=== PATIENT | male | born 1950 | race American Indian/Alaskan Native ===

== ENCOUNTER 2019-10-13 09:47 | Emergency (ER) | payer MEDICARE ==
[2019-10-13 11:21] VITALS: BP 114/66
--- NOTE | 2019-10-13 11:28 | Emergency Department Report ---
Chief Complaint: Upper Respiratory Infection Stated Complaint: CARONA VIRUS CLEARANCE Time Seen by Provider: 10/13/19 11:19 - HPI History of Present Illness: 69 y/o male bought in by his daughter for covid-19 screening. Carter reports that the adult daycare sent her to the ER for screening since patient has a cough. Daughter reports her dad has a chronic cough from his medication. No recent travels or contact with anyone who has tested positive for covid-19. - Exam Vital Signs: Vital Signs 10/13/19 11:19 Temperature 99.2 F Pulse Rate 73 Respiratory 24 Rate Blood Pressure 114/66 O2 Sat by Pulse 94 Oximetry Physical Exam: alert NAD resp breathing without difficulties. MSE screening note: Focused history and physical exam performed. Due to findings the following was ordered: 69 y/o male bought in by his daughter for covid-19 screening. Carter reports that the adult daycare sent her to the ER for screening since patient has a cough. Daughter reports her dad has a chronic cough from his medication. ED Disposition for MSE Disposition: MED SCREENING EXAM-LEFT Is pt being admited?: No Does the pt Need Aspirin: No Condition: Stable Additional Instructions: recommend to return to day center. Forms: Accompanied Note
== END 2019-10-13 11:35 | disposition left against medical advice (07) ==
LOC: ED 09:47
DX: R05 Cough (principal)
CPT/HCPCS: 99281

== ENCOUNTER 2022-02-25 17:55 | Inpatient (IN) | payer OTHER, MEDICARE ==
--- NOTE | 2022-02-25 18:24 | Consultation ---
Medications and Allergies Allergies Allergy/AdvReac Type Severity Reaction Status Date / Time No Known Allergies Allergy Verified 02/25/22 17:59 Home Medications Medication Instructions Recorded Confirmed Last Taken Type Metoprolol [Lopressor TAB] 06/02/14 Unknown History Simvastatin 06/02/14 Unknown History amLODIPine [Norvasc] 5 mg PO DAILY 06/02/14 06/02/14 Unknown History lisinopriL [Zestril] 10 mg PO QDAY 06/02/14 Unknown History Clopidogrel [Plavix] 75 mg PO QDAY #30 tablet 06/03/14 Unknown Rx Assessment and Plan [facility] Consult Note # Demographics Consult Type: Acute Stroke Level 2 (4.5-24 hrs) Patient Location: Emergency Room First Name: Roel Last Name: Km Date of : 1950 Age: 71 Gender: Male Facility: [facility] Time of Initial Page ( Time): 02/25/2022, 17:47 Time of Return Call ( Time): 02/25/2022, 17:47 # HPI History: 71M with 14:00 is reported last well time. Then with speech trouble. Confused also. # Scores Time of exam and NIHSS ( Time): 02/25/2022, 18:05 Level of Consciousness 1a: [0] = Alert; keenly responsive LOC Questions 1b: [2] = Answers neither correctly LOC Commands 1c: [0] = Performs both tasks correctly Best Gaze 2: [0] = Normal Visual 3: [0] = No visual loss Facial Palsy 4: [0] = Normal symmetrical movements Motor Arm Left 5a: [0] = No drift Motor Arm Right 5b: [0] = No drift Motor Leg Left 6a: [0] = No drift Motor Leg Right 6b: [0] = No drift Limb Ataxia 7: [0] = Absent Sensory 8: [0] = Normal Best Language 9: [2] = Severe aphasia Dysarthria 10: [2] = Severe dysarthria Extinction and Inattention 11: [0] = No abnormality NIHSS Total: 6 VAN Screening: Negative # PMH-FH-SH Past Medical History: hypertension # Data Time Head CT personally read by me ( Time): 02/25/2022, 18:[address]: no bleed preliminarily reviewed by me, please refer to radiology read for official reading # Assessment Impression: Ischemic Stroke (Acute) disabling deficit. No contraindication can be identified to IV thrombolytic treatment, family not yet able to be contacted. # Plan Thrombolytic/Intervention: IV thrombolytic and possible IA candidate Thrombolytic Dosing: IV alteplase 0.9 mg/kg, max dose 90 mg; 10% of dose given over 1 minute IVP, remaining 90% given as infusion over 1 hour Time IV Thrombolytic Recommended ( Time): 02/25/2022, 18:09 Imaging: (urgency: STAT): CT Angiogram Head and CT Angiogram Neck Imaging: (urgency: routine): MRI Brain without contrast Diagnostic Test: echo without bubble study Thrombolytic Administration Recommendations: Unable to obtain informed consent due to medical condition. No family available. In my opinion, benefits of IV thrombolytic therapy outweigh risks. I have collected independent history specific to time last normal or last known well. We have collaborated with the ED provider and at this time, we have the most current timeline with the information that is available. BP goal< 180/105 for 24hrs post Thrombolytic administration Use Labetolol 10-20mg IV prn or Nicardipine gtt to maintain BP parameters No antiplatelets or anticoagulants for next 24 hrs unless indicated for emergent IA procedure or other life threatening situation ICU admission Call back if there is any decline in neurological condition Other: LDL < 70 permissive hypertension telemetry monitoring I have discussed my recommendations with the referring provider Additional Recommendations: If large vessel occlusion found on CTA head/neck please urgently consult neuro-endovascular specialist for transfer and interventional treatment, otherwise can admit locally for further evaluation and management. Disposition: admit # Logistics Telemedicine: Interactive 2 way audio and visual telecommunication technology was utilized during this visit
--- NOTE | 2022-02-25 18:31 | Cat Scan Report ---
CT BRAIN: 02/25/2022 INDICATION / CLINICAL INFORMATION: aphasia; eval for cva. Technologist note:Radiologist aware that pt is moving. best images possible after scanning twice COMPARISON: None available. FINDINGS: BRAIN/INTRACRANIAL STRUCTURES: Unenhanced CT images of the brain were obtained. Patient motion artifa ct is present. There is no evidence of acute abnormality. Ventricles and sulci are prominent in size, consistent with pronounced age-related atrophic change. C hronic white matter hypoattenuation is present diffusely throughout the cerebral hemispheric white ma tter. There is no gross evidence of large vessel territory ischemic injury, hemorrhage, or mass. There are no abnormal extra-axial fluid collections. Atherosclerotic vascular calcifications are present in the distal internal carotid arteries and verte bral arteries. EXTRACRANIAL STRUCTURES: Unremarkable. IMPRESSION: No acute abnormality. Chronic and age-related changes. All CT scans at this location are performed using dose reduction to ALARA by means of automated expos ure control. Signer Name: Noel Hammer MD Signed: 02/25/2022 6:27 PM Workstation Name: [id number]
--- NOTE | 2022-02-25 18:47 | XRay Report ---
CHEST 1 VIEW 02/25/2022 5:38 PM INDICATION / CLINICAL INFORMATION: weakness, aphasia. COMPARISON: 06/02/2014 FINDINGS: SUPPORT DEVICES: None. HEART / MEDIASTINUM: There is prominence of the cardiac silhouette LUNGS / PLEURA: There is focal parenchymal opacity in the right upper lung zone and there are mild bi basilar airspace opacities. No pneumothorax. There is blunting of the left costophrenic angle suggest ing small left effusion. ADDITIONAL FINDINGS: No significant additional findings. IMPRESSION: 1. There are bilateral airspace opacities which could represent atelectasis or pneumonia. 2. There is a possible small left pleural effusion. Note: Follow-up radiograph should be obtained in the next several weeks to ensure clearing of the marquita gs. Signer Name: David Cosme MD Signed: 02/25/2022 6:43 PM Workstation Name: [email or web address]-tic
[2022-02-25 19:12] LABS: INR 0.94 (0.87-1.13)
[2022-02-25 19:13] LABS: Partial Thromboplastin Time 29.5 Sec. (24.2-36.6)
[2022-02-25 19:15] LABS: Alanine Aminotransferase 20 units/L (7-56); Albumin 3.8 g/dL (3.9-5); BUN/Creatinine Ratio 13; Blood Urea Nitrogen 18 mg/dL (9-20); Hemolysis Index 3
--- NOTE | 2022-02-25 19:38 | Emergency Department Report ---
ED Neuro Deficit HPI - General Chief Complaint: Neuro Symptoms/Deficit Stated Complaint: STROKE Time Seen by Provider: 02/25/22 17:57 Source: EMS Mode of arrival: Stretcher Limitations: Other - History of Present Illness Initial Comments: 71yo M w/hx of HTN, HLD, bibems as stroke notification. Pt is currently aphasic. EMS states that family member reports that the patient was last known well at 2 PM. Of note the patient arrived here at 5:53 PM. Patient is moving all extremities but cannot verbalize any complaints or provide any verbal responses to this provider. Unable to assess pain scale. Last Observed Normal: 14:00 Location: speech History of same: No Place: home Severity: Unable to Determine Quality: other (Patient nonverbal) Improves With: other (Patient nonverbal) Worsens With: other (Known patient nonverbal) On Anticoagulants: No Associated Symptoms: other (Unknown patient unable to verbalize) Treatments Prior to Arrival: none - Related Data Home Medications: Home Medications Medication Instructions Recorded Confirmed Last Taken Metoprolol [Lopressor TAB] 06/02/14 Unknown Simvastatin 06/02/14 Unknown amLODIPine [Norvasc] 5 mg PO DAILY 06/02/14 06/02/14 Unknown lisinopriL [Zestril] 10 mg PO QDAY 06/02/14 Unknown Previous Rx's Medication Instructions Recorded Last Taken Type Clopidogrel [Plavix] 75 mg PO QDAY #30 tablet 06/03/14 Unknown Rx Allergies/Adverse Reactions: Allergies Allergy/AdvReac Type Severity Reaction Status Date / Time No Known Allergies Allergy Verified 02/25/22 17:59 ED Review of Systems ROS: Stated complaint: STROKE Other details as noted in HPI Comment: Unobtainable due to pts medical conditions Constitutional: no symptoms reported ED Past Medical Hx - Past Medical History Hx Hypertension: Yes Hx Heart Attack/AMI: Yes Hx Dementia: Yes Additional medical history: high chol - Family History Family history: no significant - Social History Smoking Status: Former Smoker Substance Use Type: None - Medications Home Medications: Home Medications Medication Instructions Recorded Confirmed Last Taken Type Metoprolol [Lopressor TAB] 06/02/14 Unknown History Simvastatin 06/02/14 Unknown History amLODIPine [Norvasc] 5 mg PO DAILY 06/02/14 06/02/14 Unknown History lisinopriL [Zestril] 10 mg PO QDAY 06/02/14 Unknown History Clopidogrel [Plavix] 75 mg PO QDAY #30 tablet 06/03/14 Unknown Rx ED Neuro Physical Exam - General Limitations: Other (Patient aphasic) General appearance: alert, in no apparent distress Suspected Stroke: Yes - Head Head exam: Present: atraumatic, normocephalic, normal inspection - Eye Eye exam: Present: normal appearance, PERRL, EOMI Pupils: Present: normal accommodation - ENT ENT exam: Present: normal exam, mucous membranes moist, normal external ear exam - Neck Neck exam: Present: normal inspection - Respiratory Respiratory exam: Present: normal lung sounds bilaterally - Cardiovascular Cardiovascular Exam: Present: regular rate, normal rhythm, normal heart sounds - GI/Abdominal GI/Abdominal exam: Present: soft, normal bowel sounds - Extremities Exam Extremities exam: Present: normal inspection, full ROM, normal capillary refill. Absent: pedal edema, joint swelling, calf tenderness - Back Exam Back exam: Present: normal inspection, full ROM. Absent: tenderness, CVA tenderness (R), CVA tenderness (L), muscle spasm, rash noted - Neurological Exam Neurological exam: Present: alert, CN II-XII intact, reflexes normal, other (Patient aphasic) - NIHSS Assessment Interval: Baseline 1a. Level of Consciousness: alert/keenly responsive 1b. LOC Questions: aphasic 1c. LOC Commands: performs tasks correctly 2. Best Gaze: normal 3. Visual: no visual loss 4. Facial Palsy: minor paralysis 5b. Motor Arm Right: no drift 5a. Motor Arm Left: no drift 6a. Motor Leg Left: no drift 6b. Motor Leg Right: no drift 7. Limb Ataxia: absent 8. Sensory: no response/quadraplegic 9. Best Language: mute/global aphasia 10. Dysarthria: mute/anarrthric 11. Extinction/Inattention: no abnormality Total Score: 10 Stroke Severity: Moderate Stroke ED Course Vital Signs 02/25/22 02/25/22 02/25/22 18:36 21:02 21:41 Temperature 98.0 F Pulse Rate 106 H 88 68 Respiratory 15 15 18 Rate Blood Pressure 116/56 Blood Pressure 116/56 133/90 132/69 [Left] O2 Sat by Pulse 100 95 97 Oximetry - Reevaluation(s) Reevaluation #1: 02/25/22 06:08pm: Call received from stroke neurologist, Dr. Becker. Per his verbal report patient is a tPA candidate. 6:10PM-06:21pm PM: I telephoned the patient's next of kin on file, his daughter named..... I spoke with her specifically to verify the patient's last known well time as well as to discuss the risk benefits of the patient receiving tPA. Per her verbal report she last saw the patient at 2 PM but she states she was not the one watching over him during the morning. The patient was being cared for by her uncle named Nathan. I spoke to Nathan independently. He states "I last saw him about 130pm or maybe 2:00." He states the patient last shook his head and nodded in response to the question he asked. Patient's daughter states to this provider that she is uncertain if she would like the patient to receive tPA "because he is minimally verbal and does not really talk in general and if something happens to him and he gets a brain bleed no one will know." Patient's daughter states she is requesting to speak to the stroke neurologist, Dr. Becker, concerning further questions she has concerning risk benefits of the patient receiving tPA. 06:22pm: Call made to stroke neurologist, Dr. Becker. I informed him of my discussion with the patient's daughter as well as the patient's daughters uncle, Nathan. Per his verbal report, the patient based on the timeframe provided by uncle Nathan, is out of the window to receive tPA and therefore it is not recommended that this be administered at this time. Immediately subsequently telephoned the patient's daughter and informed her of this. Reevaluation #2: 02/25/22 19:48 Reassessed. He is comfortable and well-appearing. He remains aphasic. Reevaluation #3: 02/25/22 23:03 Pt reassessed; He remains aphasic - Lab Data Result diagrams: 02/25/22 18:33 Lab Results 02/25/22 02/25/22 02/25/22 Range/Units 18:33 18:33 18:33 PT 13.6 (12.2-14.9) Sec. INR 0.94 (0.87-1.13) APTT 29.5 (24.2-36.6) Sec. Sodium 139 (137-145) mmol/L Potassium 3.3 L (3.6-5.0) mmol/L Chloride 103.0 (98-107) mmol/L Carbon Dioxide 23 (22-30) mmol/L Anion Gap 16 mmol/L BUN 18 (9-20) mg/dL Creatinine 1.4 H (0.8-1.3) mg/dL Estimated GFR > 60 ml/min BUN/Creatinine Ratio 13 % Glucose 125 H (75-100) mg/dL POC Glucose (70-105) mg/dL Calcium 9.0 (8.4-10.2) mg/dL Total Bilirubin 0.60 (0.1-1.2) mg/dL AST 33 (5-40) units/L ALT 20 (7-56) units/L Alkaline Phosphatase 71 (35-129) units/L Troponin T < 0.010 (0.00-0.029) ng/mL Total Protein 7.7 (6.3-8.2) g/dL Albumin 3.8 L (3.9-5) g/dL Albumin/Globulin Ratio 1.0 % Plasma/Serum Alcohol < 0.01 (0-0.07) % // Range/Units 18:47 PT (12.2-14.9) Sec. INR (0.87-1.13) APTT (24.2-36.6) Sec. Sodium (137-145) mmol/L Potassium (3.6-5.0) mmol/L Chloride (98-107) mmol/L Carbon Dioxide (22-30) mmol/L Anion Gap mmol/L BUN (9-20) mg/dL Creatinine (0.8-1.3) mg/dL Estimated GFR ml/min BUN/Creatinine Ratio % Glucose (75-100) mg/dL POC Glucose 130 H (70-105) mg/dL Calcium (8.4-10.2) mg/dL Total Bilirubin (0.1-1.2) mg/dL AST (5-40) units/L ALT (7-56) units/L Alkaline Phosphatase (35-129) units/L Troponin T (0.00-0.029) ng/mL Total Protein (6.3-8.2) g/dL Albumin (3.9-5) g/dL Albumin/Globulin Ratio % Plasma/Serum Alcohol (0-0.07) % - EKG Data -: EKG Interpreted by In EKG shows normal: sinus rhythm Rate: normal When compared to previous EKG there are: no significant change Interpretation: no acute changes - Radiology Data Radiology results: report reviewed - Medical Decision Making 71yo M w/multiple medical comorbidites brought in by EMS as stroke notification. VSS. Pt deemed not a TPA candidate upon further questioning via the pt's family members. See Stroke Neurologist's documentation concerning this. Labs and imaging results reviewed. Case reviewed with Dr. Murdock, admitting hospitalist. Pt's care has been transferred to him for further management. - Core Measures AMI Core Measures Followed: Yes - Thrombolytic Inclusion/Exclusion Thrombolytic Exclusion Criteria: Symptom Onset > 3 Hours (onset of symptoms ~1:30pm per uncle nathan's report ) Critical care attestation.: If time is entered above; I have spent that time in minutes in the direct care of this critically ill patient, excluding procedure time. ED Disposition Clinical Impression: Aphasia Disposition: 09 ADMITTED INPATIENT Is pt being admited?: Yes Does the pt Need Aspirin: Yes Condition: Stable Referrals: PRIMARY CARE, [Primary Care Provider] - 3-5 Days
[2022-02-25] MEDS ORDERED: SODIUM CHLORIDE 0.9% 1000 ML 1,000 ML IV ONE (20:08)
--- NOTE | 2022-02-25 21:55 | Cat Scan Report ---
CTA neck without and with intravenous contrast material CLINICAL HISTORY: aphasia ; last normal at 2pm; eval for cva TECHNIQUE: Following acquisition of a timing bolus 0.625 mm thick contiguous axial scans were obtained from aort ic arch to the skull base during rapid bolus intravenous contrast infusion. In addition to evaluation of axial source images multiplanar reconstructions were produced and reviewed for this report. 3 halel ne MIP reconstructions were produced and reviewed. Contrast dose report: Omnipaque 350: 100 ml, administered intravenously All CT examinations performed at this facility utilize modulated dose reduction, iterative reconstruc tion or weight-based dosing, as appropriate, to obtain a radiation dose which is as low as can reason ably be achieved. LIMITATIONS: Patient motion artifact is a significantly limiting factor on this examination. This obs cures long segments of the common carotid arteries and necks evaluation of the carotid bifurcations a nd possible. Study is also limited by dense intravenous contrast in a dilated right internal jugular and subclavian vein obscuring arterial detail along the course of the right subclavian artery and pro ximal right common carotid artery. FINDINGS: Thoracic aorta: No abnormalities are seen along the visualized course of the thoracic aorta. The orig ins of the brachiocephalic and left carotid artery have an unremarkable appearance. Calcified atheros clerotic plaque is seen at the origin of the left subclavian artery. Right common carotid artery orig in is poorly evaluated secondary to patient motion artifact and dense contrast in the adjacent large venous structures. Right carotid artery: Evaluation of the carotid bifurcations is impossible on this study due to patie nt motion artifact which obscures detail at the bifurcations. Mid and distal R ICA unremarkable appea cristopher. Left carotid artery: Evaluation of the carotid bifurcations is not possible on this study secondary t o patient motion artifact. Mid and distal cervical segments of the LICA have an unremarkable appearan ce. Posterior circulation: No abnormalities are seen along the course of the V1 segments of the vertebral arteries. Patient motion artifact degrades image quality and limits evaluation of much of the V2 seg ments of the vertebral arteries. The degree of stenosis, if any, is determined utilizing NASCET like criteria. In this case the carot id bifurcations cannot be evaluated due to patient motion artifact. Evaluation of the nonvascular soft tissue structures is limited secondary to patient motion artifact. There are findings of peripheral parenchymal infiltrates versus fibrotic changes in a subpleural dis tribution in the right upper and lower lobes. Evaluation of the cervical spine is limited secondary to patient motion artifact. However, there does appear to be grade 2 spondylolisthesis at the C2-3 level with resultant central canal stenosis. This may be in part due to patient motion artifact. Correlation with computed tomographic study of the ce rvical spine is suggested when the patient is able to cooperate for the examination. IMPRESSION: 1. This study significantly limited by patient motion artifact which renders this study nondiagnostic with regard to the presence of stenosis at the carotid bifurcations as well as multiple additional l imitations as enumerated above. 2. Grade 2 spondylolisthesis of C2-3 is likely in part due to artifact related to patient motion. Cor relation with cervical spine radiographs be considered. Alternatively, repeat CTA neck or CT cervical spine could be considered when the patient can cooperate for the examination. Signer Name: Brody Joy MD Signed: 02/25/2022 9:51 PM Workstation Name: [id number]
--- NOTE | 2022-02-25 21:57 | Cat Scan Report ---
CTA head with intravenous contrast CLINICAL HISTORY: aphasia ; last normal at 2pm; eval for cva TECHNIQUE: 0.625 mm thick contiguous axial scans were obtained from the skull base to the skull vertex during r apid bolus administration of intravenous contrast material. Multiplanar reconstructions were produced in the coronal and sagittal planes. In addition 3 plane MIP instructions were produced and reviewed for this report. The axial source images and reconstructed images were reviewed for this report. CONTRAST DOSE REPORT: Omnipaque 350: 100 ml administered intravenously. All CT scans at this location are performed using CT dose reduction for ALARA by means of automated e xposure control. FINDINGS: Patient motion artifact renders this examination nondiagnostic. IMPRESSION: 1. Nondiagnostic CTA head secondary to patient motion artifact. Consider repeat study when the patien t is able to cooperate for the examination. Signer Name: Brody Joy MD Signed: 02/25/2022 9:52 PM Workstation Name: [id number]
[2022-02-25] MEDS ORDERED: ASPIRIN 300 MG RECT SUPP PR ONE (22:47)
[2022-02-25 23:03] LABS: Hematocrit 43.1 % (35.5-45.6); Hemoglobin 13.5 gm/dl (11.8-15.2); Mean Corpuscular HGB Conc 31 % (32-34); Mean Corpuscular Volume 76 fl (84-94); Red Blood Count 5.63 M/mm3 (3.65-5.03); Red Cell Distribution Width 18.2 % (13.2-15.2)
[2022-02-25 23:04] LABS: Platelet Count 153 K/mm3 (140-440)
[2022-02-25] MEDS ORDERED: ONDANSETRON 4 MG/2 ML INJ IV PRN (23:06)
[2022-02-25] MEDS ORDERED: SODIUM CHLORIDE 0.9% 1000 ML 1,000 ML IV SCH (23:15)
--- NOTE | 2022-02-25 23:18 | History and Physical Report ---
History of Present Illness Date of examination: 02/25/22 Date of admission: 02/25/22 Chief complaint: Aphasia History of present illness: 71 years old male with past medical history of hypertension and hyperlipidemia was brought to the hospital because of aphasic. EMS states that family member reports that the patient was last known well at 2 PM. Of note the patient arrived here at 5:53 PM. Patient is moving all extremities but cannot verbalize any complaints or provide any verbal responses to this provider. Unable to assess pain scale. Initial CT scan of the head shows no acute intracranial abnormality. Subsequently patient was seen and evaluated by telemetry neurology and recommended tPA but later based on the timeframe provided by uncle Nathan, is out of the window to receive tPA and therefore it is not recommended that this be administered at this time. Immediately subsequently telephoned the patient's daughter and informed her of this. Past History Past Medical History: hypertension, hyperlipidemia, other (Dementia) Past Surgical History: No surgical history Social history: no significant social history Family history: hypertension Medications and Allergies Allergies Allergy/AdvReac Type Severity Reaction Status Date / Time No Known Allergies Allergy Verified 02/25/22 17:59 Home Medications Medication Instructions Recorded Confirmed Last Taken Type Metoprolol [Lopressor TAB] 06/02/14 Unknown History Simvastatin 06/02/14 Unknown History amLODIPine [Norvasc] 5 mg PO DAILY 06/02/14 06/02/14 Unknown History lisinopriL [Zestril] 10 mg PO QDAY 06/02/14 Unknown History Clopidogrel [Plavix] 75 mg PO QDAY #30 tablet 06/03/14 Unknown Rx Active Meds: Active Medications Acetaminophen (Acetaminophen 325 Mg Tab) 650 mg PO Q4H PRN PRN Reason: Pain MILD(1-3)/Fever >100.5/SAMUEL Amlodipine Besylate (Amlodipine 5 Mg Tab) 5 mg PO DAILY DONOVAN Aspirin (Aspirin 81 Mg Tab Chew) 81 mg PO ONCE ONE Stop: 02/25/22 23:14 Atorvastatin Calcium (Atorvastatin 40 Mg Tab) 40 mg PO QHS DONOVAN Clopidogrel Bisulfate (Clopidogrel 75 Mg Tab) 75 mg PO QDAY DONOVAN Famotidine (Famotidine 20 Mg/2 Ml Inj) 20 mg IV BID DONOVAN Heparin Sodium (Porcine) (Heparin 5,000 Unit/1 Ml Vial) 5,000 unit SUB-Q Q12HR DONOVAN Sodium Chloride (Nacl 0.9% 1000 Ml) 1,000 mls @ 100 mls/hr IV DIRECT DONOVAN Labetalol HCl (Labetalol 20 Mg/4 Ml Inj) 10 mg IV Q5MIN PRN PRN Reason: to maintain SBP < 180 Lisinopril (Lisinopril 10 Mg Tab) 10 mg PO QDAY DONOVAN Metoprolol Tartrate (Metoprolol Tartrate 25 Mg Tab) 25 mg PO BID DONOVAN Morphine Sulfate (Morphine 2 Mg/1 Ml Inj) 2 mg IV Q4H PRN PRN Reason: Pain, Moderate (4-6) Morphine Sulfate (Morphine 4 Mg/1 Ml Inj) 4 mg IV Q4H PRN PRN Reason: Pain , Severe (7-10) Ondansetron HCl (Ondansetron 4 Mg/2 Ml Inj) 4 mg IV Q8H PRN PRN Reason: Nausea And Vomiting Sodium Chloride (Sodium Chloride 0.9% 10 Ml Flush Syringe) 10 ml IV BID DONOVAN Sodium Chloride (Sodium Chloride 0.9% 10 Ml Flush Syringe) 10 ml IV PRN PRN PRN Reason: LINE FLUSH Sodium Chloride (Sodium Chloride 0.9% 10 Ml Flush Syringe) 10 ml INJ PRN PRN PRN Reason: LINE FLUSH Review of Systems All systems: negative Constitutional: weakness, other (Aphasia) Exam - Constitutional Vitals: Temp Pulse Resp BP Pulse Ox 98.0 F 68 18 132/69 97 02/25/22 18:36 02/25/22 21:41 02/25/22 21:41 02/25/22 21:41 02/25/22 21:41 General appearance: Present: no acute distress, well-nourished - EENT Eyes: Present: PERRL ENT: hearing intact, clear oral mucosa - Neck Neck: Present: supple, normal ROM - Respiratory Respiratory effort: normal Respiratory: bilateral: CTA - Cardiovascular Heart Sounds: Present: S1 & S2. Absent: rub, click - Extremities Extremities: pulses symmetrical, No edema Peripheral Pulses: within normal limits - Abdominal General gastrointestinal: Present: soft, non-tender, non-distended, normal bowel sounds Male genitourinary: Present: normal - Integumentary Integumentary: Present: clear, warm, dry - Musculoskeletal Musculoskeletal: gait normal, strength equal bilaterally - Psychiatric Psychiatric: appropriate mood/affect, intact judgment & insight - Neurologic Neurologic: CNII-XII intact, moves all extremities HEART Score - HEART Score Troponin: Troponin T < 0.010 ng/mL (0.00-0.029) 02/25/22 18:33 Results - Labs CBC & Chem 7: 02/25/22 22:37 02/25/22 18:33 Labs: Laboratory Last Values WBC 17.9 K/mm3 (4.5-11.0) H 02/25/22 22:37 RBC 5.63 M/mm3 (3.65-5.03) H 02/25/22 22:37 Hgb 13.5 gm/dl (11.8-15.2) 02/25/22 22:37 Hct 43.1 % (35.5-45.6) 02/25/22 22:37 MCV 76 fl (84-94) L 02/25/22 22:37 MCH 24 pg (28-32) L 02/25/22 22:37 MCHC 31 % (32-34) L 02/25/22 22:37 RDW 18.2 % (13.2-15.2) H 02/25/22 22:37 Plt Count 153 K/mm3 (140-440) 02/25/22 22:37 Lymph % (Auto) Cloth Bin Packer 02/25/22 22:37 Lymph # (Auto) Cloth Bin Packer 02/25/22 22:37 Seg Neutrophils % Cloth Bin Packer 02/25/22 22:37 PT 13.6 Sec. (12.2-14.9) 02/25/22 18:33 INR 0.94 (0.87-1.13) 02/25/22 18:33 APTT 29.5 Sec. (24.2-36.6) 02/25/22 18:33 Sodium 139 mmol/L (137-145) 02/25/22 18:33 Potassium 3.3 mmol/L (3.6-5.0) L 02/25/22 18:33 Chloride 103.0 mmol/L (98-107) 02/25/22 18:33 Carbon Dioxide 23 mmol/L (22-30) 02/25/22 18:33 Anion Gap 16 mmol/L 02/25/22 18:33 BUN 18 mg/dL (9-20) 02/25/22 18:33 Creatinine 1.4 mg/dL (0.8-1.3) H 02/25/22 18:33 Estimated GFR > 60 ml/min 02/25/22 18:33 BUN/Creatinine Ratio 13 % 02/25/22 18:33 Glucose 125 mg/dL (75-100) H 02/25/22 18:33 POC Glucose 130 mg/dL (70-105) H 02/25/22 18:47 Calcium 9.0 mg/dL (8.4-10.2) 02/25/22 18:33 Total Bilirubin 0.60 mg/dL (0.1-1.2) 02/25/22 18:33 AST 33 units/L (5-40) 02/25/22 18:33 ALT 20 units/L (7-56) 02/25/22 18:33 Alkaline Phosphatase 71 units/L (35-129) 02/25/22 18:33 Troponin T < 0.010 ng/mL (0.00-0.029) 02/25/22 18:33 Total Protein 7.7 g/dL (6.3-8.2) 02/25/22 18:33 Albumin 3.8 g/dL (3.9-5) L 02/25/22 18:33 Albumin/Globulin Ratio 1.0 % 02/25/22 18:33 Plasma/Serum Alcohol < 0.01 % (0-0.07) 02/25/22 18:33 - Imaging and Cardiology CT Scan - head: report reviewed Assessment and Plan VTE prophylaxis?: Chemical Plan of care discussed with patient/family: Yes - Patient Problems (1) CVA (cerebral vascular accident) Current Visit: Yes Status: Acute Plan to address problem: Admit the patient to the medical telemetry. NPO. Aspirin 81 mg p.o. daily. Plavix 75 mg p.o. daily. Lipitor 40 mg p.o. daily. PT OT speech evaluation. MRI of the brain and MRA of the brain and neck with and without contrast. Neurology evaluation (2) Hyperlipidemia Current Visit: Yes Status: Acute Plan to address problem: Lipitor 40 mg p.o. daily. We will recheck the lipid panel. We continue the home medication (3) Aphasia Current Visit: No Status: Acute Plan to address problem: Aspirin 81 mg p.o. daily. Plavix 75 mg p.o. daily. Lipitor 40 mg p.o. daily. PT OT speech evaluation. MRI of the brain and MRA of the brain and neck with and without contrast. Neurology evaluation (4) Hypertension Current Visit: No Status: Acute Plan to address problem: Labetalol 10 mg IV every 6 hours as needed. Metoprolol 25 mg p.o. twice daily. Amlodipine 5 mg p.o. daily. Lisinopril 10 mg p.o. daily (5) Dementia Current Visit: Yes Status: Acute Plan to address problem: Stable. We continue the home medication (6) DVT prophylaxis Current Visit: No Status: Acute Plan to address problem: Heparin 5000 units subcu every 12 hours for DVT prophylaxis. Pepcid 20 mg IV every 12 hours for GI prophylaxis. Patient is a full code
[2022-02-25 23:41] LABS: Chol/HDL Ratio 8.27 %
[2022-02-26 00:41] LABS: Bacteria,Urine 1+ /HPF (Negative); Mucus,Urine FEW /HPF
[2022-02-26 00:43] LABS: Amphetamine Screen,Urine PRESUMPTIVE NEGATIVE; Benzodiazepines Screen,Urine PRESUMPTIVE NEGATIVE; Cannabinoid Screen,Urine PRESUMPTIVE NEGATIVE; Cocaine Screen,Urine PRESUMPTIVE NEGATIVE; Methadone Screen,Urine PRESUMPTIVE NEGATIVE; Opiate Screen,Urine PRESUMPTIVE NEGATIVE
[2022-02-26 00:44] LABS: Bilirubin,Urine Negative (Negative); Blood,Urine Large (Negative); Color,Urine Yellow (Yellow)
[2022-02-26 00:45] LABS: Urobilinogen,Urine < 2.0 mg/dL (<2.0)
[2022-02-26] MEDS ORDERED: ASPIRIN 81 MG TAB CHEW PO ONE ×2 (00:45→04:00)
[2022-02-26 01:20] LABS: Basophils % (Manual) 0 % (0.0-1.8); Eosinophils % (Manual) 0 % (0.0-4.3); Total Cells Counted 100
[2022-02-26 01:21] LABS: Anisocytosis 1+; Hypochromasia 1+; Ovalocytes Few; Platelet Estimate Consistent w Auto
[2022-02-26] MEDS: ALBUTEROL 2.5 MG/3 ML NEBU IH PRN (02:28)
[2022-02-26] MEDS ORDERED: ASPIRIN 300 MG RECT SUPP PR ONE (04:00)
[2022-02-26] MEDS: METOPROLOL TARTRATE 25 MG TAB PO SCH ×3 (08:00→16:23)
[2022-02-26] MEDS ORDERED: ALBUTEROL 2.5 MG/3 ML NEBU IH SCH (08:00)
[2022-02-26 08:21] LABS: Mean Corpuscular HGB Conc 31 % (32-34); Mean Corpuscular Volume 78 fl (84-94); Platelet Count 143 K/mm3 (140-440); Red Blood Count 5.45 M/mm3 (3.65-5.03); Red Cell Distribution Width 17.5 % (13.2-15.2)
[2022-02-26 08:23] LABS: Hematocrit 42.2 % (35.5-45.6)
[2022-02-26 08:40] LABS: BUN/Creatinine Ratio 12; Blood Urea Nitrogen 12 mg/dL (9-20); Calcium 8.1 mg/dL (8.4-10.2); Hemolysis Index 0
--- NOTE | 2022-02-26 09:01 | Consultation ---
History of Present Illness Consult date: 02/26/22 Reason for Consult: cva Chief complaint: difficulty with speech History of present illness: 71 yo male with htn, dm, who presents with "confusion and speech difficulty" per telestroke notes. Noted with aphasia per h&p note. Patient is nonverbal and does not follow commands but grunts. Past History Past Medical History: hypertension, hyperlipidemia, other (Dementia) Past Surgical History: No surgical history Social history: no significant social history Family history: hypertension Medications and Allergies Allergies Allergy/AdvReac Type Severity Reaction Status Date / Time No Known Allergies Allergy Verified 02/25/22 17:59 Home Medications Medication Instructions Recorded Confirmed Last Taken Type Metoprolol [Lopressor TAB] 06/02/14 Unknown History Simvastatin 06/02/14 Unknown History amLODIPine [Norvasc] 5 mg PO DAILY 06/02/14 06/02/14 Unknown History lisinopriL [Zestril] 10 mg PO QDAY 06/02/14 Unknown History Clopidogrel [Plavix] 75 mg PO QDAY #30 tablet 06/03/14 Unknown Rx Active Meds: Active Medications Acetaminophen (Acetaminophen 325 Mg Tab) 650 mg PO Q4H PRN PRN Reason: Pain MILD(1-3)/Fever >100.5/SAMUEL Albuterol (Albuterol 2.5 Mg/3 Ml Nebu) 2.5 mg IH Q3HRT PRN PRN Reason: Shortness Of Breath Last Admin: 02/26/22 02:28 Dose: 2.5 mg Amlodipine Besylate (Amlodipine 5 Mg Tab) 5 mg PO DAILY DONOVAN Atorvastatin Calcium (Atorvastatin 40 Mg Tab) 40 mg PO QHS [facility] Clopidogrel Bisulfate (Clopidogrel 75 Mg Tab) 75 mg PO QDAY DONOVAN Famotidine (Famotidine 20 Mg/2 Ml Inj) 20 mg IV BID [facility] Heparin Sodium (Porcine) (Heparin 5,000 Unit/1 Ml Vial) 5,000 unit SUB-Q Q12HR DONOVAN Sodium Chloride (Nacl 0.9% 1000 Ml) 1,000 mls @ 100 mls/hr IV DIRECT DONOVAN Last Admin: 02/26/22 05:53 Dose: 100 mls/hr Potassium Chloride (Kcl 10meq/100ml) 10 meq in 100 mls @ 100 mls/hr IV Q1H DONOVAN Stop: 02/26/22 11:59 Labetalol HCl (Labetalol 20 Mg/4 Ml Inj) 10 mg IV Q5MIN PRN PRN Reason: to maintain SBP < 180 Lisinopril (Lisinopril 10 Mg Tab) 10 mg PO QDAY DONOVAN Metoprolol Tartrate (Metoprolol Tartrate 25 Mg Tab) 25 mg PO BID@0800,1700 DONOVAN Morphine Sulfate (Morphine 2 Mg/1 Ml Inj) 2 mg IV Q4H PRN PRN Reason: Pain, Moderate (4-6) Morphine Sulfate (Morphine 4 Mg/1 Ml Inj) 4 mg IV Q4H PRN PRN Reason: Pain , Severe (7-10) Ondansetron HCl (Ondansetron 4 Mg/2 Ml Inj) 4 mg IV Q8H PRN PRN Reason: Nausea And Vomiting Sodium Chloride (Sodium Chloride 0.9% 10 Ml Flush Syringe) 10 ml IV BID DONOVAN Sodium Chloride (Sodium Chloride 0.9% 10 Ml Flush Syringe) 10 ml IV PRN PRN PRN Reason: LINE FLUSH Review of Systems ROS unobtainable: due to mental status Physical Examination - Vital Signs Vital Signs: Vital Signs Temp Pulse Resp BP Pulse Ox 98.0 F 105 H 16 116/56 100 02/25/22 18:36 02/25/22 18:36 02/25/22 18:36 02/25/22 18:36 02/25/22 18:36 Results - Laboratory Findings CBC and BMP: 02/26/22 07:37 02/26/22 04:28 Abnormal Lab Findings: Abnormal Labs 02/25/22 02/25/22 02/25/22 18:33 18:33 18:47 WBC RBC MCV MCH MCHC RDW Lymphocytes % (Manual) Monocytes % (Manual) Seg Neutrophils # Man Lymphocytes # (Manual) Monocytes # (Manual) Potassium 3.3 L Chloride Creatinine 1.4 H Glucose 125 H POC Glucose 130 H Hemoglobin A1c Calcium Albumin 3.8 L Triglycerides 198 H HDL Cholesterol 22 L Urine Blood Urine WBC (Auto) 02/25/22 02/26/22 02/26/22 22:37 00:27 04:28 WBC 17.9 H RBC 5.63 H MCV 76 L MCH 24 L MCHC 31 L RDW 18.2 H Lymphocytes % (Manual) 38.0 H Monocytes % (Manual) 13.0 H Seg Neutrophils # Man 8.8 H Lymphocytes # (Manual) 6.8 H Monocytes # (Manual) 2.3 H Potassium 3.2 L Chloride 107.7 H Creatinine Glucose POC Glucose Hemoglobin A1c Calcium 8.1 L Albumin Triglycerides HDL Cholesterol Urine Blood Large A Urine WBC (Auto) 33.0 H 02/26/22 02/26/22 07:37 07:37 WBC 14.2 H RBC 5.45 H MCV 78 L MCH 24 L MCHC 31 L RDW 17.5 H Lymphocytes % (Manual) Monocytes % (Manual) Seg Neutrophils # Man Lymphocytes # (Manual) Monocytes # (Manual) Potassium Chloride Creatinine Glucose POC Glucose Hemoglobin A1c 7.0 H Calcium Albumin Triglycerides HDL Cholesterol Urine Blood Urine WBC (Auto) Assessment and Plan 71 yo male with htn, dm, who presents with aphasia and/or acute encephalopathy. 1. Acute Ischemic Stroke - ASA 325 mg PO qday, MRI Brain w/ wo contrast, CTA Head/Neck w/ & w/o contrast, TTEcho, CUS, check LDL/HgbA1C/TSH/Covid-19/UDS, baseline CXR, EKG; telemetry, NIHSS q4 hours; SBP goal 160-200 mmHg and DBP 80- 100 mmHg for now. Statin therapy for a goal LDL of 70, when patient passes swallow evaluation. PT/OT/ST/Swallow evaluation. Long-term risk-factor modification, including a strict diet/exercise regimen for secondary stroke prop hylaxis. Stroke education prior to discharge. 2. Seizure - stat eeg ordered. 3. Acute Metabolic Encephalopathy - if mri brain / eeg are unremarkable or if febrile, recommend csf evaluation, if no clinical improvement. 4. Hypertension - goal SBP 160-200 mmHg and DBP 80-100 mmHg. 5. Diabetes Mellitus - maintain euglycemia. 6. Dysarthria / Aphasia / Dysphagia - st / swallow evaluation/monitoring. 6. Generalized weakness - pt/ot evaluation/monitoring. Jesus Hargrove MD Neurology [id number]
--- NOTE | 2022-02-26 09:06 | Electrocardiograph Report ---
[facility] Test Date: 2022-02-26 Test Time: 01:08:27 Pat Name: MARNI COBB Department: Room: A456 1 Gender: M Certified Addiction Counselor: 21 : 1950 Requested By: TRISTEN BRAMBILA Order Number: [id number] Reading MD: Augustine De Dios Measurements Intervals [place] Rate: 88 P: 78 MO: 148 QRS: -59 QRSD: 115 T: 104 QT: 399 QTc: 484 Interpretive Statements Sinus rhythm Incomplete left bundle branch block LVH with secondary repolarization abnormality Anterior Q waves, possibly due to LVH No previous ECG available for comparison Electronically Signed On 02-26-2022 9:05:39 EDT by Augustine De Dios
--- NOTE | 2022-02-26 09:06 | Electrocardiograph Report ---
[facility] Test Date: 2022-02-26 Test Time: 06:42:08 Pat Name: MARNI COBB Department: Room: A456 1 Gender: M [employer]: KAVON : 1950 Requested By: DEB ORTEGA Order Number: [id number] Reading MD: Augustine De Dios Measurements Intervals [place] Rate: 85 P: 49 MN: 149 QRS: -27 QRSD: 119 T: 155 QT: 397 QTc: 473 Interpretive Statements Sinus rhythm Incomplete left bundle branch block LVH with secondary repolarization abnormality Anterior Q waves, possibly due to LVH Compared to ECG 02/26/2022 01:08:27 No significant changes Electronically Signed On 02-26-2022 9:05:45 EDT by Augustine De Dios
[2022-02-26 09:25] LABS: Total Cells Counted 100
[2022-02-26 09:27] LABS: Anisocytosis 1+
[2022-02-26 09:28] LABS: Large Platelets Rare; Ovalocytes Rare; Platelet Estimate Consistent w Auto; Poikilocytosis Few
[2022-02-26] MEDS: CLOPIDOGREL 75 MG TAB PO SCH ×2 (10:00→10:43)
[2022-02-26] MEDS: amLODIPine 5 MG TAB PO SCH ×2 (10:00→10:43)
[2022-02-26] MEDS ORDERED: LORazepam 2 MG/ML VIAL IV SCH (10:00)
[2022-02-26] MEDS: LISINOPRIL 10 MG TAB PO SCH ×2 (10:00→10:43)
[2022-02-26] MEDS: POTASSIUM CHLORIDE 10 MEQ 10 MEQ/100 ML BAG IV SCH (10:42)
[2022-02-26] MEDS: FAMOTIDINE 20 MG/2 ML INJ IV SCH ×2 (10:43→22:07)
[2022-02-26] MEDS: HEPARIN 5,000 UNIT/1 ML VIAL SUB-Q SCH ×2 (10:43→22:08)
--- NOTE | 2022-02-26 19:14 | Progress Note ---
Assessment and Plan Assessment and plan: #Possible acute ischemic CVA #Acute metabolic encephalopathy Lower clinical suspicion after patient's daughter described him as being at his baseline. Higher clinical suspicion for encephalopathy secondary to UTI. Unremarkable CT head noncontrast Pending MRI brain without contrast and MRA brain and neck with and without contrast. Hemoglobin A1c 7.0. Lipid panel: Triglycerides 198, cholesterol 182, LDL 130, HDL 22. Neurology consulted; patient recs Physical therapy and Occupational Therapy consulted. #Acute cystitis with hematuria #Leukocytosis WBC 17.9--> 14.7 Urinalysis revealing large blood, WBC 32, 1+ bacteria Continue Rocephin 1 g daily #Hypokalemia Potassium 3.3--> 3.2 Continue to replete. Repeat with BMP in the morning. #Hyperlipidemia #Hypertension - home medications: Amlodipine 5 mg daily, lisinopril 10 mg daily, atorvastatin 40 mg daily - current medications: Amlodipine 5 mg daily, lisinopril 10 mg daily, atorvastatin 40 mg daily - SBP goal <160 and DBP goal <90 while inpatient - continue to monitor #Non-insulin dependent type II diabetes mellitus - hemoglobin A1c: 7.0 - home regimen: None - current regimen: Moderate SSI - blood glucose goal 140-180 while inpatient - continue to monitor #Hypocalcemia Calcium 8.1 Replete. Continue to monitor. #Dementia Continue orienting patient, turning off visual stimuli at bedtime, and keeping blinds/curtains open during the day. #Obesity #Weight loss counseling #Exercise counseling - BMI 31.7 - Counseled patient on the importance of weight loss, incorporating exercise, and dietary changes (lean meats, fresh fruits and vegetables, and water intake). Patient expresses understanding. - Time: +15 min #Advanced care planning -Disease education conducted, care plan discussed, diagnoses discussed, prognosis discussed, and patient acknowledges understanding with care plan -Time: +30 min Disposition Plan: Continue medical management Total Time Spent with Patient (Minutes): 45 minutes History Interval history: No acute events overnight. Hospitalist Physical - Constitutional Vitals: Temp Pulse Resp BP Pulse Ox 98.3 F 92 H 20 144/90 93 02/26/22 15:47 02/26/22 15:47 02/26/22 02:36 02/26/22 15:47 02/26/22 15:47 General appearance: Present: no acute distress, well-nourished, obese, other (Nonverbal at baseline) - EENT Eyes: Present: PERRL, EOM intact ENT: hearing intact, clear oral mucosa - Neck Neck: Present: supple, normal ROM - Respiratory Respiratory effort: normal Respiratory: bilateral: CTA (2 L nasal cannula) - Cardiovascular Rhythm: regular Heart Sounds: Present: S1 & S2 - Extremities Extremities: no ischemia, pulses intact, pulses symmetrical, No edema, normal temperature, normal color Peripheral Pulses: within normal limits - Abdominal General gastrointestinal: soft, non-tender, non-distended, normal bowel sounds - Integumentary Integumentary: Present: clear, warm, dry - Psychiatric Psychiatric: other (Unable to fully assess given patient's cognitive deficits) - Neurologic Neurologic: moves all extremities - Allied Health Allied health notes reviewed: nursing HEART Score - HEART Score Troponin: Troponin T < 0.010 ng/mL (0.00-0.029) 02/25/22 18:33 Results - Labs CBC & Chem 7: 02/26/22 07:37 02/26/22 04:28 Labs: Laboratory Last Values WBC 14.2 K/mm3 (4.5-11.0) H 02/26/22 07:37 RBC 5.45 M/mm3 (3.65-5.03) H 02/26/22 07:37 Hgb 13.0 gm/dl (11.8-15.2) 02/26/22 07:37 Hct 42.2 % (35.5-45.6) 02/26/22 07:37 MCV 78 fl (84-94) L 02/26/22 07:37 MCH 24 pg (28-32) L 02/26/22 07:37 MCHC 31 % (32-34) L 02/26/22 07:37 RDW 17.5 % (13.2-15.2) H 02/26/22 07:37 Plt Count 143 K/mm3 (140-440) 02/26/22 07:37 Lymph % (Auto) Chair Car Driver 02/26/22 07:37 Lymph # (Auto) Chair Car Driver 02/26/22 07:37 Add Manual Diff Complete 02/26/22 07:37 Total Counted 100 02/26/22 07:37 Seg Neutrophils % Chair Car Driver 02/26/22 07:37 Seg Neuts % (Manual) 49.0 % (40.0-70.0) 02/26/22 07:37 Band Neutrophils % 0 % 02/26/22 07:37 Lymphocytes % (Manual) 40.0 % (13.4-35.0) H 02/26/22 07:37 Reactive Lymphs % (Man) 0 % 02/26/22 07:37 Monocytes % (Manual) 9.0 % (0.0-7.3) H 02/26/22 07:37 Eosinophils % (Manual) 1.0 % (0.0-4.3) 02/26/22 07:37 Basophils % (Manual) 1.0 % (0.0-1.8) 02/26/22 07:37 Metamyelocytes % 0 % 02/26/22 07:37 Myelocytes % 0 % 02/26/22 07:37 Promyelocytes % 0 % 02/26/22 07:37 Blast Cells % 0 % 02/26/22 07:37 Nucleated RBC % Not Reportable 02/26/22 07:37 Seg Neutrophils # Man 7.0 K/mm3 (1.8-7.7) 02/26/22 07:37 Band Neutrophils # 0.0 K/mm3 02/26/22 07:37 Lymphocytes # (Manual) 5.7 K/mm3 (1.2-5.4) H 02/26/22 07:37 Abs React Lymphs (Man) 0.0 K/mm3 02/26/22 07:37 Monocytes # (Manual) 1.3 K/mm3 (0.0-0.8) H 02/26/22 07:37 Eosinophils # (Manual) 0.1 K/mm3 (0.0-0.4) 02/26/22 07:37 Basophils # (Manual) 0.1 K/mm3 (0.0-0.1) 02/26/22 07:37 Metamyelocytes # 0.0 K/mm3 02/26/22 07:37 Myelocytes # 0.0 K/mm3 02/26/22 07:37 Promyelocytes # 0.0 K/mm3 02/26/22 07:37 Blast Cells # 0.0 K/mm3 02/26/22 07:37 WBC Morphology Not Reportable 02/26/22 07:37 Hypersegmented Neuts Not Reportable 02/26/22 07:37 Hyposegmented Neuts Not Reportable 02/26/22 07:37 Hypogranular Neuts Not Reportable 02/26/22 07:37 Smudge Cells Not Reportable 02/26/22 07:37 Toxic Granulation Not Reportable 02/26/22 07:37 Toxic Vacuolation Not Reportable 02/26/22 07:37 Dohle Bodies Not Reportable 02/26/22 07:37 Pelger-Huet Anomaly Not Reportable 02/26/22 07:37 Benja Rods Not Reportable 02/26/22 07:37 Platelet Estimate Consistent w auto 02/26/22 07:37 Clumped Platelets Not Reportable 02/26/22 07:37 Plt Clumps, EDTA Not Reportable 02/26/22 07:37 Large Platelets Rare 02/26/22 07:37 Giant Platelets Not Reportable 02/26/22 07:37 Platelet Satelliting Not Reportable 02/26/22 07:37 Plt Morphology Comment Not Reportable 02/26/22 07:37 RBC Morphology Not Reportable 02/26/22 07:37 Dimorphic RBCs Not Reportable 02/26/22 07:37 Polychromasia Not Reportable 02/26/22 07:37 Hypochromasia Not Reportable 02/26/22 07:37 Poikilocytosis Few 02/26/22 07:37 Anisocytosis 1+ 02/26/22 07:37 Microcytosis Not Reportable 02/26/22 07:37 Macrocytosis Not Reportable 02/26/22 07:37 Spherocytes Not Reportable 02/26/22 07:37 Pappenheimer Bodies Not Reportable 02/26/22 07:37 Sickle Cells Not Reportable 02/26/22 07:37 Target Cells Not Reportable 02/26/22 07:37 Tear Drop Cells Not Reportable 02/26/22 07:37 Ovalocytes Rare 02/26/22 07:37 Helmet Cells Not Reportable 02/26/22 07:37 Kline-[place] Bodies Not Reportable 02/26/22 07:37 [place] Rings Not Reportable 02/26/22 07:37 [place] Cells Not Reportable 02/26/22 07:37 Bite Cells Not Reportable 02/26/22 07:37 Crenated Cell Not Reportable 02/26/22 07:37 Elliptocytes Rare 02/26/22 07:37 Acanthocytes (Spur) Not Reportable 02/26/22 07:37 Rouleaux Not Reportable 02/26/22 07:37 Hemoglobin C Crystals Not Reportable 02/26/22 07:37 Schistocytes Not Reportable 02/26/22 07:37 Malaria parasites Not Reportable 02/26/22 07:37 Hai Bodies Not Reportable 02/26/22 07:37 Hem Pathologist Commnt No 02/26/22 07:37 PT 13.6 Sec. (12.2-14.9) 02/25/22 18:33 INR 0.94 (0.87-1.13) 02/25/22 18:33 APTT 29.5 Sec. (24.2-36.6) 02/25/22 18:33 Sodium 141 mmol/L (137-145) 02/26/22 04:28 Potassium 3.2 mmol/L (3.6-5.0) L 02/26/22 04:28 Chloride 107.7 mmol/L (98-107) H 02/26/22 04:28 Carbon Dioxide 24 mmol/L (22-30) 02/26/22 04:28 Anion Gap 13 mmol/L 02/26/22 04:28 BUN 12 mg/dL (9-20) 02/26/22 04:28 Creatinine 1.0 mg/dL (0.8-1.3) 02/26/22 04:28 Estimated GFR > 60 ml/min 02/26/22 04:28 BUN/Creatinine Ratio 12 % 02/26/22 04:28 Glucose 84 mg/dL (75-100) 02/26/22 04:28 POC Glucose 130 mg/dL (70-105) H 02/25/22 18:47 Hemoglobin A1c 7.0 % (4-6) H 02/26/22 07:37 Calcium 8.1 mg/dL (8.4-10.2) L 02/26/22 04:28 Total Bilirubin 0.60 mg/dL (0.1-1.2) 02/25/22 18:33 AST 33 units/L (5-40) 02/25/22 18:33 ALT 20 units/L (7-56) 02/25/22 18:33 Alkaline Phosphatase 71 units/L (35-129) 02/25/22 18:33 Troponin T < 0.010 ng/mL (0.00-0.029) 02/25/22 18:33 Total Protein 7.7 g/dL (6.3-8.2) 02/25/22 18:33 Albumin 3.8 g/dL (3.9-5) L 02/25/22 18:33 Albumin/Globulin Ratio 1.0 % 02/25/22 18:33 Prealbumin 0.109 g/L (0.200-0.400) L 02/26/22 14:00 Triglycerides 198 mg/dL (2-149) H 02/25/22 18:33 Cholesterol 182 mg/dL (50-199) 02/25/22 18:33 LDL Cholesterol Direct 130 mg/dL (50-130) 02/25/22 18:33 HDL Cholesterol 22 mg/dL (40-59) L 02/25/22 18:33 Cholesterol/HDL Ratio 8.27 % 02/25/22 18:33 Vitamin B12 493.1 pg/mL (211-911) 02/26/22 14:00 Folate 20.00 ng/mL (7.3-26.0) 02/26/22 14:00 Procalcitonin < 0.05 ng/mL (<0.15) 02/26/22 07:37 TSH 1.820 mlU/mL (0.270-4.200) 02/26/22 14:00 Urine Color Yellow (Yellow) 02/26/22 00:27 Urine Turbidity Clear (Clear) 02/26/22 00:27 Urine pH 5.0 (5.0-7.0) 02/26/22 00:27 Ur Specific [place] 1.015 (1.003-1.030) 02/26/22 00:27 Urine Protein 30 mg/dl mg/dL (Negative) 02/26/22 00:27 Urine Glucose (UA) Negative mg/dL (Negative) 02/26/22 00: Urine Ketones Negative mg/dL (Negative) 02/26/22 00:27 Urine Blood Large (Negative) A 02/26/22 00:27 Urine Nitrite Negative (Negative) 02/26/22 00:27 Ur Reducing Substances Not Reportable 02/26/22 00: Urine Bilirubin Negative (Negative) 02/26/22 00:27 Urine Ictotest Not Reportable 02/26/22 00:27 Urine Urobilinogen < 2.0 mg/dL (<2.0) 02/26/22 00:27 Ur Leukocyte Esterase Negative (Negative) 02/26/22 00:27 Urine WBC (Auto) 33.0 /HPF (0.0-6.0) H 02/26/22 00:27 Urine RBC (Auto) 5.0 /HPF (0.0-6.0) 02/26/22 00:27 U Epithel Cells (Auto) 2.0 /HPF (0-13.0) 02/26/22 00:27 Urine Bacteria (Auto) 1+ /HPF (Negative) 02/26/22 00:27 Urine Mucus Few /HPF 02/26/22 00:27 Urine Yeast (Budding) 1+ /HPF 02/26/22 00:27 Urine Opiates Screen Presumptive negative 02/26/22 00:27 Urine Methadone Screen Presumptive negative 02/26/22 00:27 Ur Barbiturates Screen Presumptive negative 02/26/22 00:27 Ur Phencyclidine Scrn Presumptive negative 02/26/22 00:27 Ur Amphetamines Screen Presumptive negative 02/26/22 00:27 U Benzodiazepines Scrn Presumptive negative 02/26/22 00:27 Urine Cocaine Screen Presumptive negative 02/26/22 00:27 U Marijuana (THC) Screen Presumptive negative 02/26/22 00:27 Drugs of Abuse Note Disclamer 02/26/22 00:27 Plasma/Serum Alcohol < 0.01 % (0-0.07) 02/25/22 18:33 [place]/IV: Voiding Method Condom Catheter Active Medications - Current Medications Current Medications: Generic Name Dose Route Start Last Admin Trade Name Freq PRN Reason Stop Dose Admin Acetaminophen 650 mg 02/25/22 23:06 Acetaminophen 325 Mg Tab PO Q4H PRN Pain MILD(1-3)/Fever >100.5/SAMUEL Albuterol 2.5 mg 02/26/22 02:30 02/26/22 02:28 Albuterol 2.5 Mg/3 Ml Nebu IH 2.5 mg Q3HRT PRN Administration Shortness Of Breath Amlodipine Besylate 5 mg 02/26/22 10:00 02/26/22 10:00 Amlodipine 5 Mg Tab PO Not Given DAILY DONOVAN Atorvastatin Calcium 40 mg 02/26/22 22:00 Atorvastatin 40 Mg Tab PO QHS [facility] Clopidogrel Bisulfate 75 mg 02/26/22 10:00 02/26/22 10:00 Clopidogrel 75 Mg Tab PO Not Given QDAY [facility] Famotidine 20 mg 02/26/22 10:00 02/26/22 10:43 Famotidine 20 Mg/2 Ml Inj IV 20 mg BID DONOVAN Administration Heparin Sodium (Porcine) 5,000 unit 02/26/22 10:00 02/26/22 10:43 Heparin 5,000 Unit/1 Ml Vial SUB-Q 5,000 unit Q12HR DONOVAN Administration Sodium Chloride 1,000 mls @ 100 mls/hr 02/25/22 23:15 02/26/22 05:53 Nacl 0.9% 1000 Ml IV 100 mls/hr DIRECT DONOVAN Administration Labetalol HCl 10 mg 02/25/22 23:06 Labetalol 20 Mg/4 Ml Inj IV Q5MIN PRN to maintain SBP < 180 Lisinopril 10 mg 02/26/22 10:00 02/26/22 10:00 Lisinopril 10 Mg Tab PO Not Given QDAY [facility] Metoprolol Tartrate 25 mg 02/26/22 08:00 02/26/22 16:23 Metoprolol Tartrate 25 Mg Tab PO Not Given BID@0800,1700 [facility] Morphine Sulfate 2 mg 02/25/22 23:06 Morphine 2 Mg/1 Ml Inj IV Q4H PRN Pain, Moderate (4-6) Morphine Sulfate 4 mg 02/25/22 23:06 Morphine 4 Mg/1 Ml Inj IV Q4H PRN Pain , Severe (7-10) Ondansetron HCl 4 mg 02/25/22 23:06 Ondansetron 4 Mg/2 Ml Inj IV Q8H PRN Nausea And Vomiting Sodium Chloride 10 ml 02/26/22 10:00 02/26/22 10:43 Sodium Chloride 0.9% 10 Ml Flush Syringe IV 10 ml BID DONOVAN Administration Sodium Chloride 10 ml 02/25/22 23:06 Sodium Chloride 0.9% 10 Ml Flush Syringe IV PRN PRN LINE FLUSH
[2022-02-26] MEDS: ACETAMINOPHEN 325 MG TAB PO PRN (22:07)
[2022-02-26] MEDS ORDERED: ACETAMINOPHEN 650 MG RECT SUPP PR PRN (22:28)
[2022-02-27 07:57] LABS: Mean Corpuscular HGB Conc 31 % (32-34); Mean Corpuscular Volume 77 fl (84-94); Red Blood Count 5.73 M/mm3 (3.65-5.03); Red Cell Distribution Width 17.7 % (13.2-15.2)
[2022-02-27 07:58] LABS: Hematocrit 44.3 % (35.5-45.6); Hemoglobin 13.5 gm/dl (11.8-15.2); Platelet Count 156 K/mm3 (140-440)
[2022-02-27 08:03] LABS: Blood Urea Nitrogen 9 mg/dL (9-20); Calcium 8.6 mg/dL (8.4-10.2); Hemolysis Index 92
[2022-02-27 08:07] LABS: BUN/Creatinine Ratio 13
[2022-02-27] MEDS: cefTRIAXone/NS 1 GM/50 ML 1 GM/50 ML BAG IV SCH (09:06)
[2022-02-27] MEDS: HEPARIN 5,000 UNIT/1 ML VIAL SUB-Q SCH ×2 (09:10→23:32)
[2022-02-27] MEDS: FAMOTIDINE 20 MG/2 ML INJ IV SCH ×2 (09:10→23:32)
[2022-02-27 09:13] LABS: Basophils % (Manual) 0 % (0.0-1.8); Total Cells Counted 100
[2022-02-27 09:14] LABS: Hypochromasia 1+; Large Platelets Few; Platelet Estimate Consistent w Auto; Poikilocytosis Few
--- NOTE | 2022-02-27 10:44 | Progress Note ---
Assessment and Plan Assessment and plan: #Possible acute ischemic CVAruled out #Acute metabolic encephalopathy Lower clinical suspicion after patient's daughter described him as being at his baseline. Higher clinical suspicion for encephalopathy secondary to UTI. Unremarkable CT head noncontrast Discontinued MRI brain due to low clinical suspicion + patient being unable to remain still for imaging. Hemoglobin A1c 7.0. Lipid panel: Triglycerides 198, cholesterol 182, LDL 130, HDL 22. Neurology consulted; appreciate recs. Physical therapy and Occupational Therapy consulted. #Sepsis 2/2 acute cystitis with hematuria #Leukocytosisimproving WBC 17.9--> 14.7--> 13.8 Urinalysis revealing large blood, WBC 32, 1+ bacteria. Pending blood culture and urine culture Continue Rocephin 1 g daily (started 02/27/2022). #Hypokalemiaresolved Potassium 3.3--> 3.2 Continue to replete. Repeat with BMP in the morning. #Hyperlipidemia #Hypertension - home medications: Amlodipine 5 mg daily, lisinopril 10 mg daily, atorvastatin 40 mg daily - current medications: Amlodipine 5 mg daily, lisinopril 10 mg daily, atorvastatin 40 mg daily - SBP goal <160 and DBP goal <90 while inpatient - continue to monitor #Non-insulin dependent type II diabetes mellitus - hemoglobin A1c: 7.0 - home regimen: None - current regimen: Moderate SSI - blood glucose goal 140-180 while inpatient - continue to monitor #Hypocalcemia Calcium 8.1 Replete. Continue to monitor. #Dementia Continue orienting patient, turning off visual stimuli at bedtime, and keeping blinds/curtains open during the day. #Obesity #Weight loss counseling #Exercise counseling - BMI 31.7 - Counseled patient on the importance of weight loss, incorporating exercise, and dietary changes (lean meats, fresh fruits and vegetables, and water intake). Patient expresses understanding. - Time: +15 min #Advanced care planning -Disease education conducted, care plan discussed, diagnoses discussed, prognosis discussed, and patient acknowledges understanding with care plan -Time: +30 min Disposition Plan: Continue medical management Total Time Spent with Patient (Minutes): 45 minutes History Interval history: No acute events overnight. Hospitalist Physical - Constitutional Vitals: Temp Pulse Resp BP Pulse Ox 98.8 F 82 16 143/78 97 02/27/22 07:50 02/27/22 07:50 02/27/22 07:50 02/27/22 07:50 02/27/22 08:20 General appearance: Present: no acute distress, well-nourished, obese, other (Nonverbal at baseline) - EENT Eyes: Present: PERRL, EOM intact ENT: hearing intact, clear oral mucosa, dentition normal - Neck Neck: Present: supple, normal ROM - Respiratory Respiratory effort: normal Respiratory: bilateral: CTA - Cardiovascular Rhythm: regular Heart Sounds: Present: S1 & S2 - Extremities Extremities: no ischemia, pulses intact, pulses symmetrical, No edema, normal temperature, normal color Peripheral Pulses: within normal limits - Abdominal General gastrointestinal: soft, non-tender, non-distended, normal bowel sounds - Integumentary Integumentary: Present: clear, warm, dry - Psychiatric Psychiatric: other (unable to assess given cognitive deficits) - Neurologic Neurologic: moves all extremities - Allied Health Allied health notes reviewed: nursing HEART Score - HEART Score Troponin: Troponin T < 0.010 ng/mL (0.00-0.029) 02/25/22 18:33 Results - Labs CBC & Chem 7: 02/27/22 06:47 02/27/22 06:47 Labs: Laboratory Last Values WBC 13.8 K/mm3 (4.5-11.0) H 02/27/22 06:47 RBC 5.73 M/mm3 (3.65-5.03) H 02/27/22 06:47 Hgb 13.5 gm/dl (11.8-15.2) 02/27/22 06:47 Hct 44.3 % (35.5-45.6) 02/27/22 06:47 MCV 77 fl (84-94) L 02/27/22 06:47 MCH 24 pg (28-32) L 02/27/22 06:47 MCHC 31 % (32-34) L 02/27/22 06:47 RDW 17.7 % (13.2-15.2) H 02/27/22 06:47 Plt Count 156 K/mm3 (140-440) 02/27/22 06:47 Lymph % (Auto) Solutions Engineer 02/27/22 06:47 Lymph # (Auto) Solutions Engineer 02/27/22 06:47 Add Manual Diff Complete 02/27/22 06:47 Total Counted 100 02/27/22 06:47 Seg Neutrophils % Solutions Engineer 02/27/22 06:47 Seg Neuts % (Manual) 64.0 % (40.0-70.0) 02/27/22 06:47 Band Neutrophils % 0 % 02/27/22 06:47 Lymphocytes % (Manual) 27.0 % (13.4-35.0) 02/27/22 06:47 Reactive Lymphs % (Man) 0 % 02/27/22 06:47 Monocytes % (Manual) 8.0 % (0.0-7.3) H 02/27/22 06:47 Eosinophils % (Manual) 1.0 % (0.0-4.3) 02/27/22 06:47 Basophils % (Manual) 0 % (0.0-1.8) 02/27/22 06:47 Metamyelocytes % 0 % 02/27/22 06:47 Myelocytes % 0 % 02/27/22 06:47 Promyelocytes % 0 % 02/27/22 06:47 Blast Cells % 0 % 02/27/22 06:47 Nucleated RBC % Not Reportable 02/27/22 06:47 Seg Neutrophils # Man 8.8 K/mm3 (1.8-7.7) H 02/27/22 06:47 Band Neutrophils # 0.0 K/mm3 02/27/22 06:47 Lymphocytes # (Manual) 3.7 K/mm3 (1.2-5.4) 02/27/22 06:47 Abs React Lymphs (Man) 0.0 K/mm3 02/27/22 06:47 Monocytes # (Manual) 1.1 K/mm3 (0.0-0.8) H 02/27/22 06:47 Eosinophils # (Manual) 0.1 K/mm3 (0.0-0.4) 02/27/22 06:47 Basophils # (Manual) 0.0 K/mm3 (0.0-0.1) 02/27/22 06:47 Metamyelocytes # 0.0 K/mm3 02/27/22 06:47 Myelocytes # 0.0 K/mm3 02/27/22 06:47 Promyelocytes # 0.0 K/mm3 02/27/22 06:47 Blast Cells # 0.0 K/mm3 02/27/22 06:47 WBC Morphology Not Reportable 02/27/22 06:47 Hypersegmented Neuts Not Reportable 02/27/22 06:47 Hyposegmented Neuts Not Reportable 02/27/22 06:47 Hypogranular Neuts Not Reportable 02/27/22 06:47 Smudge Cells Not Reportable 02/27/22 06:47 Toxic Granulation Not Reportable 02/27/22 06:47 Toxic Vacuolation Not Reportable 02/27/22 06:47 Dohle Bodies Not Reportable 02/27/22 06:47 Pelger-Huet Anomaly Not Reportable 02/27/22 06:47 Benja Rods Not Reportable 02/27/22 06:47 Platelet Estimate Consistent w auto 02/27/22 06:47 Clumped Platelets Not Reportable 02/27/22 06:47 Plt Clumps, EDTA Not Reportable 02/27/22 06:47 Large Platelets Few 02/27/22 06:47 Giant Platelets Not Reportable 02/27/22 06:47 Platelet Satelliting Not Reportable 02/27/22 06:47 Plt Morphology Comment Not Reportable 02/27/22 06:47 RBC Morphology Not Reportable 02/27/22 06:47 Dimorphic RBCs Not Reportable 02/27/22 06:47 Polychromasia Not Reportable 02/27/22 06:47 Hypochromasia 1+ 02/27/22 06:47 Poikilocytosis Few 02/27/22 06:47 Anisocytosis Not Reportable 02/27/22 06:47 Microcytosis Not Reportable 02/27/22 06:47 Macrocytosis Not Reportable 02/27/22 06:47 Spherocytes Not Reportable 02/27/22 06:47 Pappenheimer Bodies Not Reportable 02/27/22 06:47 Sickle Cells Not Reportable 02/27/22 06:47 Target Cells Not Reportable 02/27/22 06:47 Tear Drop Cells Not Reportable 02/27/22 06:47 Ovalocytes Not Reportable 02/27/22 06:47 Helmet Cells Not Reportable 02/27/22 06:47 [place]line-[place] Bodies Not Reportable 02/27/22 06:47 [place] Rings Not Reportable 02/27/22 06:47 [place] Cells Not Reportable 02/27/22 06:47 Bite Cells Not Reportable 02/27/22 06:47 Crenated Cell Not Reportable 02/27/22 06:47 Elliptocytes Not Reportable 02/27/22 06:47 Acanthocytes (Spur) Not Reportable 02/27/22 06:47 Rouleaux Not Reportable 02/27/22 06:47 Hemoglobin C Crystals Not Reportable 02/27/22 06:47 Schistocytes Not Reportable 02/27/22 06:47 Malaria parasites Not Reportable 02/27/22 06:47 Hai Bodies Not Reportable 02/27/22 06:47 Hem Pathologist Commnt No 02/27/22 06:47 PT 13.6 Sec. (12.2-14.9) 02/25/22 18:33 INR 0.94 (0.87-1.13) 02/25/22 18:33 APTT 29.5 Sec. (24.2-36.6) 02/25/22 18:33 Sodium 138 mmol/L (137-145) 02/27/22 06:47 Potassium 4.9 mmol/L (3.6-5.0) D 02/27/22 06:47 Chloride 105.2 mmol/L (98-107) 02/27/22 06:47 Carbon Dioxide 21 mmol/L (22-30) L 02/27/22 06:47 Anion Gap 17 mmol/L 02/27/22 06:47 BUN 9 mg/dL (9-20) 02/27/22 06:47 Creatinine 0.7 mg/dL (0.8-1.3) L 02/27/22 06:47 Estimated GFR > 60 ml/min 02/27/22 06:47 BUN/Creatinine Ratio 13 % 02/27/22 06:47 Glucose 78 mg/dL (75-100) 02/27/22 06:47 POC Glucose 130 mg/dL (70-105) H 02/25/22 18:47 Hemoglobin A1c 7.0 % (4-6) H 02/26/22 07:37 Calcium 8.6 mg/dL (8.4-10.2) 02/27/22 06:47 Total Bilirubin 0.60 mg/dL (0.1-1.2) 02/25/22 18:33 AST 33 units/L (5-40) 02/25/22 18:33 ALT 20 units/L (7-56) 02/25/22 18:33 Alkaline Phosphatase 71 units/L (35-129) 02/25/22 18:33 Troponin T < 0.010 ng/mL (0.00-0.029) 02/25/22 18:33 Total Protein 7.7 g/dL (6.3-8.2) 02/25/22 18:33 Albumin 3.8 g/dL (3.9-5) L 02/25/22 18:33 Albumin/Globulin Ratio 1.0 % 02/25/22 18: Prealbumin 0.109 g/L (0.200-0.400) L 02/26/22 14:00 Triglycerides 198 mg/dL (2-149) H 02/25/22 18:33 Cholesterol 182 mg/dL (50-199) 02/25/22 18:33 LDL Cholesterol Direct 130 mg/dL (50-130) 02/25/22 18:33 HDL Cholesterol 22 mg/dL (40-59) L 02/25/22 18:33 Cholesterol/HDL Ratio 8.27 % 02/25/22 18:33 Vitamin B12 493.1 pg/mL (211-911) 02/26/22 14:00 Folate 20.00 ng/mL (7.3-26.0) 02/26/22 14:00 Procalcitonin < 0.05 ng/mL (<0.15) 02/26/22 07:37 TSH 1.820 mlU/mL (0.270-4.200) 02/26/22 14:00 Urine Color Yellow (Yellow) 02/26/22 00:27 Urine Turbidity Clear (Clear) 02/26/22 00:27 Urine pH 5.0 (5.0-7.0) 02/26/22 00:27 Ur Specific [place] 1.015 (1.003-1.030) 02/26/22 00:27 Urine Protein 30 mg/dl mg/dL (Negative) 02/26/22 00:27 Urine Glucose (UA) Negative mg/dL (Negative) 02/26/22 00:27 Urine Ketones Negative mg/dL (Negative) 02/26/22 00:27 Urine Blood Large (Negative) A 02/26/22 00: Urine Nitrite Negative (Negative) 02/26/22 00:27 Ur Reducing Substances Not Reportable 02/26/22 00:27 Urine Bilirubin Negative (Negative) 02/26/22 00:27 Urine Ictotest Not Reportable 02/26/22 00:27 Urine Urobilinogen < 2.0 mg/dL (<2.0) 02/26/22 00:27 Ur Leukocyte Esterase Negative (Negative) 02/26/22 00:27 Urine WBC (Auto) 33.0 /HPF (0.0-6.0) H 02/26/22 00:27 Urine RBC (Auto) 5.0 /HPF (0.0-6.0) 02/26/22 00:27 U Epithel Cells (Auto) 2.0 /HPF (0-13.0) 02/26/22 00:27 Urine Bacteria (Auto) 1+ /HPF (Negative) 02/26/22 00:27 Urine Mucus Few /HPF 02/26/22 00:27 Urine Yeast (Budding) 1+ /HPF 02/26/22 00:27 Urine Opiates Screen Presumptive negative 02/26/22 00:27 Urine Methadone Screen Presumptive negative 02/26/22 00:27 Ur Barbiturates Screen Presumptive negative 02/26/22 00:27 Ur Phencyclidine Scrn Presumptive negative 02/26/22 00:27 Ur Amphetamines Screen Presumptive negative 02/26/22 00:27 U Benzodiazepines Scrn Presumptive negative 02/26/22 00:27 Urine Cocaine Screen Presumptive negative 02/26/22 00:27 U Marijuana (THC) Screen Presumptive negative 02/26/22 00:27 Drugs of Abuse Note Disclamer 02/26/22 00:27 Plasma/Serum Alcohol < 0.01 % (0-0.07) 02/25/22 18:33 Syphilis IgG/IgM Ab Reactive (NonReactive) A 02/26/22 14:00 RPR Titer Nonreactive (1:1-1:2) 02/26/22 14:00 [place]/IV: Voiding Method Condom Catheter Active Medications - Current Medications Current Medications: Generic Name Dose Route Start Last Admin Trade Name Freq PRN Reason Stop Dose Admin Acetaminophen 650 mg 02/25/22 23:06 Acetaminophen 325 Mg Tab PO Q4H PRN Pain MILD(1-3)/Fever >100.5/SAMUEL Acetaminophen 650 mg 02/26/22 22:28 02/26/22 22:40 Acetaminophen 650 Mg Rect Supp [place] 650 mg Q4H PRN Administration Pain, Mild (1-3) Albuterol 2.5 mg 02/26/22 02:30 02/26/22 02:28 Albuterol 2.5 Mg/3 Ml Nebu IH 2.5 mg Q3HRT PRN Administration Shortness Of Breath Amlodipine Besylate 5 mg 02/26/22 10:00 02/26/22 10:00 Amlodipine 5 Mg Tab PO Not Given DAILY [facility] Atorvastatin Calcium 40 mg 02/26/22 22:00 02/26/22 22:37 Atorvastatin 40 Mg Tab PO Not Given QHS [facility] Clopidogrel Bisulfate 75 mg 02/26/22 10:00 02/26/22 10:00 Clopidogrel 75 Mg Tab PO Not Given QDAY [facility] Famotidine 20 mg 02/26/22 10:00 02/27/22 09:10 Famotidine 20 Mg/2 Ml Inj IV 20 mg BID DONOVAN Administration Heparin Sodium (Porcine) 5,000 unit 02/26/22 10:00 02/27/22 09:10 Heparin 5,000 Unit/1 Ml Vial SUB-Q 5,000 unit Q12HR DONOVAN Administration Ceftriaxone Sodium 1 gm in 50 mls @ 100 mls/hr 02/27/22 09:00 02/27/22 09:06 Rocephin/Ns 1 Gm/50 Ml IV 100 mls/hr Q24H DONOVAN Administration Protocol Dextrose 1,000 mls @ 100 mls/hr 02/27/22 11:00 D10w IV DIRECT [facility] Labetalol HCl 10 mg 02/25/22 23:06 Labetalol 20 Mg/4 Ml Inj IV Q5MIN PRN to maintain SBP < 180 Lisinopril 10 mg 02/26/22 10:00 02/26/22 10:00 Lisinopril 10 Mg Tab PO Not Given QDAY [facility] Metoprolol Tartrate 25 mg 02/26/22 08:00 02/26/22 16:23 Metoprolol Tartrate 25 Mg Tab PO Not Given BID@0800,1700 [facility] Morphine Sulfate 2 mg 02/25/22 23:06 Morphine 2 Mg/1 Ml Inj IV Q4H PRN Pain, Moderate (4-6) Morphine Sulfate 4 mg 02/25/22 23:06 Morphine 4 Mg/1 Ml Inj IV Q4H PRN Pain , Severe (7-10) Ondansetron HCl 4 mg 02/25/22 23:06 Ondansetron 4 Mg/2 Ml Inj IV Q8H PRN Nausea And Vomiting Sodium Chloride 10 ml 02/26/22 10:00 02/27/22 09:10 Sodium Chloride 0.9% 10 Ml Flush Syringe IV 10 ml BID DONOVAN Administration Sodium Chloride 10 ml 02/25/22 23:06 Sodium Chloride 0.9% 10 Ml Flush Syringe IV PRN PRN LINE FLUSH
[2022-02-27] MEDS: amLODIPine 5 MG TAB PO SCH (11:32)
[2022-02-27] MEDS: METOPROLOL TARTRATE 25 MG TAB PO SCH ×2 (11:32→16:58)
[2022-02-27] MEDS: CLOPIDOGREL 75 MG TAB PO SCH (11:32)
[2022-02-27] MEDS: LISINOPRIL 10 MG TAB PO SCH (11:32)
[2022-02-27] MEDS: DEXTROSE 10% IN WATER 1,000 ML IV SCH (11:34)
[2022-02-28] MEDS: DEXTROSE 10% IN WATER 1,000 ML IV SCH (03:50)
[2022-02-28 05:59] LABS: Hematocrit 39.8 % (35.5-45.6); Hemoglobin 12.3 gm/dl (11.8-15.2); Mean Corpuscular HGB Conc 31 % (32-34); Mean Corpuscular Volume 77 fl (84-94); Platelet Count 156 K/mm3 (140-440); Red Blood Count 5.17 M/mm3 (3.65-5.03); Red Cell Distribution Width 17.6 % (13.2-15.2)
[2022-02-28 06:25] LABS: BUN/Creatinine Ratio 10; Blood Urea Nitrogen 8 mg/dL (9-20); Calcium 8.2 mg/dL (8.4-10.2); Hemolysis Index 11
[2022-02-28] MEDS: POTASSIUM CHLORIDE 10 MEQ 10 MEQ/100 ML BAG IV SCH ×2 (08:18→12:02)
[2022-02-28 08:29] LABS: Basophils % (Manual) 0 % (0.0-1.8); Eosinophils % (Manual) 0 % (0.0-4.3); Hypochromasia 1+; Large Platelets Few; Platelet Estimate Consistent w Auto; Target Cells Few; Total Cells Counted 100
[2022-02-28] MEDS: amLODIPine 5 MG TAB PO SCH (10:24)
[2022-02-28] MEDS: METOPROLOL TARTRATE 25 MG TAB PO SCH ×2 (10:24→18:08)
[2022-02-28] MEDS: LISINOPRIL 10 MG TAB PO SCH (10:24)
[2022-02-28] MEDS: HEPARIN 5,000 UNIT/1 ML VIAL SUB-Q SCH ×2 (10:24→21:09)
[2022-02-28] MEDS: FAMOTIDINE 20 MG/2 ML INJ IV SCH ×2 (10:24→21:09)
[2022-02-28] MEDS: cefTRIAXone/NS 1 GM/50 ML 1 GM/50 ML BAG IV SCH (10:24)
[2022-02-28] MEDS: CLOPIDOGREL 75 MG TAB PO SCH (10:24)
[2022-02-28] MEDS ORDERED: POTASSIUM CHLORIDE ER 20 MEQ TAB PO SCH (11:32)
--- NOTE | 2022-02-28 13:53 | Progress Note ---
Assessment and Plan Assessment and plan: #Possible acute ischemic CVAruled out #Acute metabolic encephalopathyresolved Lower clinical suspicion after patient's daughter described him as being at his baseline. Higher clinical suspicion for encephalopathy secondary to UTI. Unremarkable CT head noncontrast Discontinued MRI brain due to low clinical suspicion + patient being unable to remain still for imaging. Hemoglobin A1c 7.0. Lipid panel: Triglycerides 198, cholesterol 182, LDL 130, HDL 22. Neurology consulted; appreciate recs. Physical therapy and Occupational Therapy consulted. #Sepsis 2/2 acute cystitis with hematuria #Leukocytosisimproving WBC 17.9--> 14.7--> 13.8--> 13.4 Urinalysis revealing large blood, WBC 32, 1+ bacteria. Pending blood culture and urine culture Continue Rocephin 1 g daily (started 02/27/2022 and antibiotic course will complete on 03/05/2022). #Hypokalemiaresolved Potassium 3.3--> 3.2 Continue to replete. Repeat with BMP in the morning. #Hyperlipidemia #Hypertension - home medications: Amlodipine 5 mg daily, lisinopril 10 mg daily, atorvastatin 40 mg daily - current medications: Amlodipine 5 mg daily, lisinopril 10 mg daily, atorvastatin 40 mg daily - SBP goal <160 and DBP goal <90 while inpatient - continue to monitor #Non-insulin dependent type II diabetes mellitus - hemoglobin A1c: 7.0 - home regimen: None - current regimen: Moderate SSI - blood glucose goal 140-180 while inpatient - continue to monitor #Hypocalcemia Calcium 8.1 Replete. Continue to monitor. #Dementia Continue orienting patient, turning off visual stimuli at bedtime, and keeping blinds/curtains open during the day. #Obesity #Weight loss counseling #Exercise counseling - BMI 31.7 - Counseled patient on the importance of weight loss, incorporating exercise, and dietary changes (lean meats, fresh fruits and vegetables, and water intake). Patient expresses understanding. - Time: +15 min #Advanced care planning -Disease education conducted, care plan discussed, diagnoses discussed, prognosis discussed, and patient acknowledges understanding with care plan -Time: +30 min #Discharge planning - Case management has been made aware. - Discharge is tentatively tomorrow Disposition Plan: Pending possible discharge home tomorrow Total Time Spent with Patient (Minutes): 45 minutes History Interval history: No acute events overnight. Hospitalist Physical - Constitutional Vitals: Temp Pulse Resp BP Pulse Ox 97.3 F L 72 18 156/76 89 02/28/22 07:35 02/28/22 12:00 02/28/22 07:35 02/28/22 07:35 02/28/22 07:35 General appearance: Present: no acute distress, well-nourished, obese, other (Nonverbal at baseline) - EENT Eyes: Present: PERRL, EOM intact ENT: hearing intact, clear oral mucosa - Neck Neck: Present: supple, normal ROM - Respiratory Respiratory effort: normal Respiratory: bilateral: CTA - Cardiovascular Rhythm: regular Heart Sounds: Present: S1 & S2 - Extremities Extremities: no ischemia, pulses intact, pulses symmetrical, No edema, normal temperature, normal color Peripheral Pulses: within normal limits - Abdominal General gastrointestinal: soft, non-tender, non-distended, normal bowel sounds - Integumentary Integumentary: Present: clear, warm, dry - Psychiatric Psychiatric: appropriate mood/affect, cooperative - Neurologic Neurologic: focal deficits (Left-sided weakness) - Allied Health Allied health notes reviewed: nursing HEART Score - HEART Score Troponin: Troponin T < 0.010 ng/mL (0.00-0.029) 02/25/22 18:33 Results - Labs CBC & Chem 7: 02/28/22 04:29 02/28/22 04:29 Labs: Laboratory Last Values WBC 13.4 K/mm3 (4.5-11.0) H 02/28/22 04:29 RBC 5.17 M/mm3 (3.65-5.03) H 02/28/22 04:29 Hgb 12.3 gm/dl (11.8-15.2) 02/28/22 04:29 Hct 39.8 % (35.5-45.6) 02/28/22 04:29 MCV 77 fl (84-94) L 02/28/22 04:29 MCH 24 pg (28-32) L 02/28/22 04:29 MCHC 31 % (32-34) L 02/28/22 04:29 RDW 17.6 % (13.2-15.2) H 02/28/22 04:29 Plt Count 156 K/mm3 (140-440) 02/28/22 04:29 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[employer] 02/28/22 04:29 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[employer] 02/28/22 04:29 Add Manual Diff Complete 02/28/22 04:29 Total Counted 100 02/28/22 04:29 Seg Neutrophils % Truck [employer] 02/28/22 04:29 Seg Neuts % (Manual) 20.0 % (40.0-70.0) L 02/28/22 04:29 Band Neutrophils % 0 % 02/28/22 04:29 Lymphocytes % (Manual) 74.0 % (13.4-35.0) H 02/28/22 04:29 Reactive Lymphs % (Man) 0 % 02/28/22 04:29 Monocytes % (Manual) 6.0 % (0.0-7.3) 02/28/22 04:29 Eosinophils % (Manual) 0 % (0.0-4.3) 02/28/22 04:29 Basophils % (Manual) 0 % (0.0-1.8) 02/28/22 04:29 Metamyelocytes % 0 % 02/28/22 04:29 Myelocytes % 0 % 02/28/22 04:29 Promyelocytes % 0 % 02/28/22 04:29 Blast Cells % 0 % 02/28/22 04:29 Nucleated RBC % Not Reportable 02/28/22 04:29 Seg Neutrophils # Man 2.7 K/mm3 (1.8-7.7) 02/28/22 04:29 Band Neutrophils # 0.0 K/mm3 02/28/22 04:29 Lymphocytes # (Manual) 9.9 K/mm3 (1.2-5.4) H 02/28/22 04:29 Abs React Lymphs (Man) 0.0 K/mm3 02/28/22 04:29 Monocytes # (Manual) 0.8 K/mm3 (0.0-0.8) 02/28/22 04:29 Eosinophils # (Manual) 0.0 K/mm3 (0.0-0.4) 02/28/22 04:29 Basophils # (Manual) 0.0 K/mm3 (0.0-0.1) 02/28/22 04:29 Metamyelocytes # 0.0 K/mm3 02/28/22 04:29 Myelocytes # 0.0 K/mm3 02/28/22 04:29 Promyelocytes # 0.0 K/mm3 02/28/22 04:29 Blast Cells # 0.0 K/mm3 02/28/22 04:29 WBC Morphology Not Reportable 02/28/22 04:29 Hypersegmented Neuts Not Reportable 02/28/22 04:29 Hyposegmented Neuts Not Reportable 02/28/22 04:29 Hypogranular Neuts Not Reportable 02/28/22 04:29 Smudge Cells Not Reportable 02/28/22 04:29 Toxic Granulation Not Reportable 02/28/22 04:29 Toxic Vacuolation Not Reportable 02/28/22 04:29 Dohle Bodies Not Reportable 02/28/22 04:29 Pelger-Huet Anomaly Not Reportable 02/28/22 04:29 Benja Rods Not Reportable 02/28/22 04:29 Platelet Estimate Consistent w auto 02/28/22 04:29 Clumped Platelets Not Reportable 02/28/22 04:29 Plt Clumps, EDTA Not Reportable 02/28/22 04:29 Large Platelets Few 02/28/22 04:29 Giant Platelets Not Reportable 02/28/22 04:29 Platelet Satelliting Not Reportable 02/28/22 04:29 Plt Morphology Comment Not Reportable 02/28/22 04:29 RBC Morphology Not Reportable 02/28/22 04:29 Dimorphic RBCs Not Reportable 02/28/22 04:29 Polychromasia Not Reportable 02/28/22 04:29 Hypochromasia 1+ 02/28/22 04:29 Poikilocytosis Not Reportable 02/28/22 04:29 Anisocytosis Not Reportable 02/28/22 04:29 Microcytosis Not Reportable 02/28/22 04:29 Macrocytosis Not Reportable 02/28/22 04:29 Spherocytes Not Reportable 02/28/22 04:29 Pappenheimer Bodies Not Reportable 02/28/22 04:29 Sickle Cells Not Reportable 02/28/22 04:29 Target Cells Few 02/28/22 04:29 Tear Drop Cells Not Reportable 02/28/22 04:29 Ovalocytes Not Reportable 02/28/22 04:29 Helmet Cells Not Reportable 02/28/22 04:29 Kline-[place] Bodies Not Reportable 02/28/22 04:29 [place] Rings Not Reportable 02/28/22 04:29 Zahl Cells Not Reportable 02/28/22 04:29 Bite Cells Not Reportable 02/28/22 04:29 Crenated Cell Not Reportable 02/28/22 04:29 Elliptocytes Not Reportable 02/28/22 04:29 Acanthocytes (Spur) Not Reportable 02/28/22 04:29 Rouleaux Not Reportable 02/28/22 04:29 Hemoglobin C Crystals Not Reportable 02/28/22 04:29 Schistocytes Not Reportable 02/28/22 04:29 Malaria parasites Not Reportable 02/28/22 04:29 Hai Bodies Not Reportable 02/28/22 04:29 Hem Pathologist Commnt No 02/28/22 04:29 PT 13.6 Sec. (12.2-14.9) 02/25/22 18:33 INR 0.94 (0.87-1.13) 02/25/22 18:33 APTT 29.5 Sec. (24.2-36.6) 02/25/22 18:33 Sodium 136 mmol/L (137-145) L 02/28/22 04:29 Potassium 3.3 mmol/L (3.6-5.0) L D 02/28/22 04:29 Chloride 99.4 mmol/L (98-107) 02/28/22 04:29 Carbon Dioxide 24 mmol/L (22-30) 02/28/22 04:29 Anion Gap 16 mmol/L 02/28/22 04:29 BUN 8 mg/dL (9-20) L 02/28/22 04:29 Creatinine 0.8 mg/dL (0.8-1.3) 02/28/22 04:29 Estimated GFR > 60 ml/min 02/28/22 04:29 BUN/Creatinine Ratio 10 % 02/28/22 04:29 Glucose 109 mg/dL (75-100) H 02/28/22 04:29 POC Glucose 125 mg/dL (70-105) H 02/28/22 00:11 Hemoglobin A1c 7.0 % (4-6) H 02/26/22 07:37 Calcium 8.2 mg/dL (8.4-10.2) L 02/28/22 04:29 Total Bilirubin 0.60 mg/dL (0.1-1.2) 02/25/22 18:33 AST 33 units/L (5-40) 02/25/22 18:33 ALT 20 units/L (7-56) 02/25/22 18:33 Alkaline Phosphatase 71 units/L (35-129) 02/25/22 18:33 Troponin T < 0.010 ng/mL (0.00-0.029) 02/25/22 18:33 Total Protein 7.7 g/dL (6.3-8.2) 02/25/22 18:33 Albumin 3.8 g/dL (3.9-5) L 02/25/22 18:33 Albumin/Globulin Ratio 1.0 % 02/25/22 18: Prealbumin 0.109 g/L (0.200-0.400) L 02/26/22 14:00 Triglycerides 198 mg/dL (2-149) H 02/25/22 18:33 Cholesterol 182 mg/dL (50-199) 02/25/22 18:33 LDL Cholesterol Direct 130 mg/dL (50-130) 02/25/22 18:33 HDL Cholesterol 22 mg/dL (40-59) L 02/25/22 18:33 Cholesterol/HDL Ratio 8.27 % 02/25/22 18:33 Vitamin B12 493.1 pg/mL (211-911) 02/26/22 14:00 Folate 20.00 ng/mL (7.3-26.0) 02/26/22 14:00 Procalcitonin < 0.05 ng/mL (<0.15) 02/26/22 07:37 TSH 1.820 mlU/mL (0.270-4.200) 02/26/22 14:00 Urine Color Yellow (Yellow) 02/26/22 00:27 Urine Turbidity Clear (Clear) 02/26/22 00:27 Urine pH 5.0 (5.0-7.0) 02/26/22 00:27 Ur Specific [place] 1.015 (1.003-1.030) 02/26/22 00:27 Urine Protein 30 mg/dl mg/dL (Negative) 02/26/22 00:27 Urine Glucose (UA) Negative mg/dL (Negative) 02/26/22 00:27 Urine Ketones Negative mg/dL (Negative) 02/26/22 00:27 Urine Blood Large (Negative) A 02/26/22 00:27 Urine Nitrite Negative (Negative) 02/26/22 00:27 Ur Reducing Substances Not Reportable 02/26/22 00:27 Urine Bilirubin Negative (Negative) 02/26/22 00:27 Urine Ictotest Not Reportable 02/26/22 00:27 Urine Urobilinogen < 2.0 mg/dL (<2.0) 02/26/22 00:27 Ur Leukocyte Esterase Negative (Negative) 02/26/22 00:27 Urine WBC (Auto) 33.0 /HPF (0.0-6.0) H 02/26/22 00:27 Urine RBC (Auto) 5.0 /HPF (0.0-6.0) 02/26/22 00:27 U Epithel Cells (Auto) 2.0 /HPF (0-13.0) 02/26/22 00:27 Urine Bacteria (Auto) 1+ /HPF (Negative) 02/26/22 00:27 Urine Mucus Few /HPF 02/26/22 00:27 Urine Yeast (Budding) 1+ /HPF 02/26/22 00:27 Urine Opiates Screen Presumptive negative 02/26/22 00:27 Urine Methadone Screen Presumptive negative 02/26/22 00:27 Ur Barbiturates Screen Presumptive negative 02/26/22 00:27 Ur Phencyclidine Scrn Presumptive negative 02/26/22 00:27 Ur Amphetamines Screen Presumptive negative 02/26/22 00:27 U Benzodiazepines Scrn Presumptive negative 02/26/22 00:27 Urine Cocaine Screen Presumptive negative 02/26/22 00:27 U Marijuana (THC) Screen Presumptive negative 02/26/22 00:27 Drugs of Abuse Note Disclamer 02/26/22 00:27 Plasma/Serum Alcohol < 0.01 % (0-0.07) 02/25/22 18:33 Syphilis IgG/IgM Ab Reactive (NonReactive) A 02/26/22 14:00 RPR Titer Nonreactive (1:1-1:2) 02/26/22 14:00 Microbiology: Microbiology 02/26/22 00:27 Urine,Clean Catch Urine Culture - Preliminary Gram Negative Javier Sprague/IV: Voiding Method Condom Catheter Active Medications - Current Medications Current Medications: Generic Name Dose Route Start Last Admin Trade Name Freq PRN Reason Stop Dose Admin Acetaminophen 650 mg 02/25/22 23:06 Acetaminophen 325 Mg Tab PO Q4H PRN Pain MILD(1-3)/Fever >100.5/SAMUEL Acetaminophen 650 mg 02/26/22 22:28 02/26/22 22:40 Acetaminophen 650 Mg Rect Supp HI 650 mg Q4H PRN Administration Pain, Mild (1-3) Albuterol 2.5 mg 02/26/22 02:30 02/26/22 02:28 Albuterol 2.5 Mg/3 Ml Nebu IH 2.5 mg Q3HRT PRN Administration Shortness Of Breath Amlodipine Besylate 5 mg 02/26/22 10:00 02/28/22 10:24 Amlodipine 5 Mg Tab PO 5 mg DAILY DONOVAN Administration Atorvastatin Calcium 40 mg 02/26/22 22:00 02/27/22 23:21 Atorvastatin 40 Mg Tab PO Not Given QHS DONOVAN Clopidogrel Bisulfate 75 mg 02/26/22 10:00 02/28/22 10:24 Clopidogrel 75 Mg Tab PO 75 mg QDAY DONOVAN Administration Famotidine 20 mg 02/26/22 10:00 02/28/22 10:24 Famotidine 20 Mg/2 Ml Inj IV 20 mg BID DONOVAN Administration Heparin Sodium (Porcine) 5,000 unit 02/26/22 10:00 02/28/22 10:24 Heparin 5,000 Unit/1 Ml Vial SUB-Q 5,000 unit Q12HR DONOVAN Administration Ceftriaxone Sodium 1 gm in 50 mls @ 100 mls/hr 02/27/22 09:00 02/28/22 10:24 Rocephin/Ns 1 Gm/50 Ml IV 100 mls/hr Q24H DONOVAN Administration Protocol Dextrose 1,000 mls @ 100 mls/hr 02/27/22 11:00 02/28/22 03:50 D10w IV 100 mls/hr DIRECT DONOVAN Administration Labetalol HCl 10 mg 02/25/22 23:06 Labetalol 20 Mg/4 Ml Inj IV Q5MIN PRN to maintain SBP < 180 Lisinopril 10 mg 02/26/22 10:00 02/28/22 10:24 Lisinopril 10 Mg Tab PO 10 mg QDAY DONOVAN Administration Metoprolol Tartrate 25 mg 02/26/22 08:00 02/28/22 10:24 Metoprolol Tartrate 25 Mg Tab PO 25 mg BID@0800,1700 DONOVAN Administration Morphine Sulfate 2 mg 02/25/22 23:06 Morphine 2 Mg/1 Ml Inj IV Q4H PRN Pain, Moderate (4-6) Morphine Sulfate 4 mg 02/25/22 23:06 Morphine 4 Mg/1 Ml Inj IV Q4H PRN Pain , Severe (7-10) Ondansetron HCl 4 mg 02/25/22 23:06 Ondansetron 4 Mg/2 Ml Inj IV Q8H PRN Nausea And Vomiting Potassium Chloride 40 meq 02/28/22 11:32 Potassium Chloride Er 20 Meq Tab PO 02/28/22 23:00 ONCE DONOVAN Sodium Chloride 10 ml 02/26/22 10:00 02/28/22 10:24 Sodium Chloride 0.9% 10 Ml Flush Syringe IV 10 ml BID DONOVAN Administration Sodium Chloride 10 ml 02/25/22 23:06 Sodium Chloride 0.9% 10 Ml Flush Syringe IV PRN PRN LINE FLUSH
[2022-02-28] MEDS: ALBUTEROL 2.5 MG/3 ML NEBU IH PRN (21:21)
[2022-03-01] MEDS: ACETAMINOPHEN 325 MG TAB PO PRN (03:43)
[2022-03-01 05:44] LABS: Mean Corpuscular HGB Conc 31 % (32-34); Mean Corpuscular Volume 76 fl (84-94); Platelet Count 161 K/mm3 (140-440); Red Blood Count 5.61 M/mm3 (3.65-5.03); Red Cell Distribution Width 17.8 % (13.2-15.2)
[2022-03-01 05:47] LABS: Hematocrit 42.8 % (35.5-45.6); Hemoglobin 13.2 gm/dl (11.8-15.2)
[2022-03-01 06:03] LABS: BUN/Creatinine Ratio 8; Blood Urea Nitrogen 7 mg/dL (9-20); Calcium 8.8 mg/dL (8.4-10.2); Hemolysis Index 33
--- NOTE | 2022-03-01 08:34 | Progress Note ---
Assessment and Plan Assessment and plan: #Possible acute ischemic CVAruled out #Acute metabolic encephalopathyresolved Lower clinical suspicion after patient's daughter described him as being at his baseline. Higher clinical suspicion for encephalopathy secondary to UTI. Unremarkable CT head noncontrast Discontinued MRI brain due to low clinical suspicion + patient being unable to remain still for imaging. Hemoglobin A1c 7.0. Lipid panel: Triglycerides 198, cholesterol 182, LDL 130, HDL 22. Neurology consulted; appreciate recs. Physical therapy and Occupational Therapy consulted. #Sepsis 2/2 E. coli UTI with hematuria #Leukocytosisimproving WBC 17.9--> 14.7--> 13.8--> 13.4 Urinalysis revealing large blood, WBC 32, 1+ bacteria. Unremarkable blood culture. Continue Rocephin 1 g daily (started 02/27/2022 and antibiotic course will complete on 03/05/2022). Patient became febrile to 100.7 on 03/01/2022. Monitoring for an additional 24 hours to ensure the patient does not become febrile again. #Hypokalemiaresolved Potassium 3.3--> 3.2 Continue to replete. Repeat with BMP in the morning. #Hyperlipidemia #Hypertension - home medications: Amlodipine 5 mg daily, lisinopril 10 mg daily, atorvastatin 40 mg daily - current medications: Amlodipine 5 mg daily, lisinopril 10 mg daily, atorvastatin 40 mg daily - SBP goal <160 and DBP goal <90 while inpatient - continue to monitor #Non-insulin dependent type II diabetes mellitus - hemoglobin A1c: 7.0 - home regimen: None - current regimen: Moderate SSI - blood glucose goal 140-180 while inpatient - continue to monitor #Hypocalcemia Calcium 8.1 Replete. Continue to monitor. #Dementia Continue orienting patient, turning off visual stimuli at bedtime, and keeping blinds/curtains open during the day. #Obesity #Weight loss counseling #Exercise counseling - BMI 31.7 - Counseled patient on the importance of weight loss, incorporating exercise, and dietary changes (lean meats, fresh fruits and vegetables, and water intake). Patient expresses understanding. - Time: +15 min #Advanced care planning -Disease education conducted, care plan discussed, diagnoses discussed, prognosis discussed, and patient acknowledges understanding with care plan -Time: +30 min #Discharge planning - Patient is pending patient being afebrile for at least 24 hours. - Case management has been made aware. - Discharge is tentatively tomorrow if patient remains afebrile. Disposition Plan: Continue medical management Total Time Spent with Patient (Minutes): 45 min History Interval history: Patient was febrile to 100.7 last night. Hospitalist Physical - Constitutional Vitals: Temp Pulse Resp BP Pulse Ox 98.6 F 94 H 20 84/38 94 03/01/22 08:06 03/01/22 08:06 03/01/22 03:11 03/01/22 08:06 03/01/22 08:06 General appearance: Present: no acute distress, well-nourished, obese, other ( Nonverbal at baseline) - EENT Eyes: Present: PERRL, EOM intact ENT: hearing intact, clear oral mucosa, dentition normal - Neck Neck: Present: supple, normal ROM - Respiratory Respiratory effort: normal Respiratory: bilateral: diminished (On 2 L nasal cannula) - Cardiovascular Rhythm: regular Heart Sounds: Present: S1 & S2 - Extremities Extremities: no ischemia, pulses intact, pulses symmetrical, No edema, normal temperature, normal color Peripheral Pulses: within normal limits - Abdominal General gastrointestinal: soft, non-tender, non-distended, normal bowel sounds - Integumentary Integumentary: Present: clear, warm, dry - Psychiatric Psychiatric: appropriate mood/affect, cooperative - Neurologic Neurologic: focal deficits (Left-sided weakness from prior CVA) - Allied Health Allied health notes reviewed: nursing HEART Score - HEART Score Troponin: Troponin T < 0.010 ng/mL (0.00-0.029) 02/25/22 18:33 Results - Labs CBC & Chem 7: 03/01/22 04:10 03/01/22 04:10 Labs: Laboratory Last Values WBC 13.9 K/mm3 (4.5-11.0) H 03/01/22 04:10 RBC 5.61 M/mm3 (3.65-5.03) H 03/01/22 04:10 Hgb 13.2 gm/dl (11.8-15.2) 03/01/22 04:10 Hct 42.8 % (35.5-45.6) 03/01/22 04:10 MCV 76 fl (84-94) L 03/01/22 04:10 MCH 24 pg (28-32) L 03/01/22 04:10 MCHC 31 % (32-34) L 03/01/22 04:10 RDW 17.8 % (13.2-15.2) H 03/01/22 04:10 Plt Count 161 K/mm3 (140-440) 03/01/22 04:10 Lymph % (Auto) Glue Jointer Operator 03/01/22 04:10 Lymph # (Auto) Glue Jointer Operator 03/01/22 04:10 Add Manual Diff Complete 02/28/22 04:29 Total Counted 100 02/28/22 04:29 Seg Neutrophils % Glue Jointer Operator 03/01/22 04:10 Seg Neuts % (Manual) 20.0 % (40.0-70.0) L 02/28/22 04:29 Band Neutrophils % 0 % 02/28/22 04:29 Lymphocytes % (Manual) 74.0 % (13.4-35.0) H 02/28/22 04:29 Reactive Lymphs % (Man) 0 % 02/28/22 04:29 Monocytes % (Manual) 6.0 % (0.0-7.3) 02/28/22 04:29 Eosinophils % (Manual) 0 % (0.0-4.3) 02/28/22 04:29 Basophils % (Manual) 0 % (0.0-1.8) 02/28/22 04:29 Metamyelocytes % 0 % 02/28/22 04:29 Myelocytes % 0 % 02/28/22 04:29 Promyelocytes % 0 % 02/28/22 04:29 Blast Cells % 0 % 02/28/22 04:29 Nucleated RBC % Not Reportable 02/28/22 04:29 Seg Neutrophils # Man 2.7 K/mm3 (1.8-7.7) 02/28/22 04:29 Band Neutrophils # 0.0 K/mm3 02/28/22 04:29 Lymphocytes # (Manual) 9.9 K/mm3 (1.2-5.4) H 02/28/22 04:29 Abs React Lymphs (Man) 0.0 K/mm3 02/28/22 04:29 Monocytes # (Manual) 0.8 K/mm3 (0.0-0.8) 02/28/22 04:29 Eosinophils # (Manual) 0.0 K/mm3 (0.0-0.4) 02/28/22 04:29 Basophils # (Manual) 0.0 K/mm3 (0.0-0.1) 02/28/22 04:29 Metamyelocytes # 0.0 K/mm3 02/28/22 04:29 Myelocytes # 0.0 K/mm3 02/28/22 04:29 Promyelocytes # 0.0 K/mm3 02/28/22 04:29 Blast Cells # 0.0 K/mm3 02/28/22 04:29 WBC Morphology Not Reportable 02/28/22 04:29 Hypersegmented Neuts Not Reportable 02/28/22 04:29 Hyposegmented Neuts Not Reportable 02/28/22 04:29 Hypogranular Neuts Not Reportable 02/28/22 04:29 Smudge Cells Not Reportable 02/28/22 04:29 Toxic Granulation Not Reportable 02/28/22 04:29 Toxic Vacuolation Not Reportable 02/28/22 04:29 Dohle Bodies Not Reportable 02/28/22 04:29 Pelger-Huet Anomaly Not Reportable 02/28/22 04:29 Benja Rods Not Reportable 02/28/22 04:29 Platelet Estimate Consistent w auto 02/28/22 04:29 Clumped Platelets Not Reportable 02/28/22 04:29 Plt Clumps, EDTA Not Reportable 02/28/22 04:29 Large Platelets Few 02/28/22 04:29 Giant Platelets Not Reportable 02/28/22 04:29 Platelet Satelliting Not Reportable 02/28/22 04:29 Plt Morphology Comment Not Reportable 02/28/22 04:29 RBC Morphology Not Reportable 02/28/22 04:29 Dimorphic RBCs Not Reportable 02/28/22 04:29 Polychromasia Not Reportable 02/28/22 04:29 Hypochromasia 1+ 02/28/22 04:29 Poikilocytosis Not Reportable 02/28/22 04:29 Anisocytosis Not Reportable 02/28/22 04:29 Microcytosis Not Reportable 02/28/22 04:29 Macrocytosis Not Reportable 02/28/22 04:29 Spherocytes Not Reportable 02/28/22 04:29 Pappenheimer Bodies Not Reportable 02/28/22 04:29 Sickle Cells Not Reportable 02/28/22 04:29 Target Cells Few 02/28/22 04:29 Tear Drop Cells Not Reportable 02/28/22 04:29 Ovalocytes Not Reportable 02/28/22 04:29 Helmet Cells Not Reportable 02/28/22 04:29 Kline-M[place]ilteo Bodies Not Reportable 02/28/22 04:29 [place] Rings Not Reportable 02/28/22 04:29 [place] Cells Not Reportable 02/28/22 04:29 Bite Cells Not Reportable 02/28/22 04:29 Crenated Cell Not Reportable 02/28/22 04:29 Elliptocytes Not Reportable 02/28/22 04:29 Acanthocytes (Spur) Not Reportable 02/28/22 04:29 Rouleaux Not Reportable 02/28/22 04:29 Hemoglobin C Crystals Not Reportable 02/28/22 04:29 Schistocytes Not Reportable 02/28/22 04:29 Malaria parasites Not Reportable 02/28/22 04:29 Hai Bodies Not Reportable 02/28/22 04:29 Hem Pathologist Commnt No 02/28/22 04:29 PT 13.6 Sec. (12.2-14.9) 02/25/22 18:33 INR 0.94 (0.87-1.13) 02/25/22 18:33 APTT 29.5 Sec. (24.2-36.6) 02/25/22 18:33 Sodium 137 mmol/L (137-145) 03/01/22 04:10 Potassium 3.6 mmol/L (3.6-5.0) 03/01/22 04:10 Chloride 99.9 mmol/L (98-107) 03/01/22 04:10 Carbon Dioxide 23 mmol/L (22-30) 03/01/22 04:10 Anion Gap 18 mmol/L 03/01/22 04:10 BUN 7 mg/dL (9-20) L 03/01/22 04:10 Creatinine 0.9 mg/dL (0.8-1.3) 03/01/22 04:10 Estimated GFR > 60 ml/min 03/01/22 04:10 BUN/Creatinine Ratio 8 % 03/01/22 04:10 Glucose 114 mg/dL (75-100) H 03/01/22 04:10 POC Glucose 88 mg/dL (70-105) 02/28/22 23:10 Hemoglobin A1c 7.0 % (4-6) H 02/26/22 07:37 Calcium 8.8 mg/dL (8.4-10.2) 03/01/22 04:10 Total Bilirubin 0.60 mg/dL (0.1-1.2) 02/25/22 18:33 AST 33 units/L (5-40) 02/25/22 18:33 ALT 20 units/L (7-56) 02/25/22 18:33 Alkaline Phosphatase 71 units/L (35-129) 02/25/22 18:33 Troponin T < 0.010 ng/mL (0.00-0.029) 02/25/22 18:33 Total Protein 7.7 g/dL (6.3-8.2) 02/25/22 18:33 Albumin 3.8 g/dL (3.9-5) L 02/25/22 18:33 Albumin/Globulin Ratio 1.0 % 02/25/22 18:33 Prealbumin 0.109 g/L (0.200-0.400) L 02/26/22 14:00 Triglycerides 198 mg/dL (2-149) H 02/25/22 18:33 Cholesterol 182 mg/dL (50-199) 02/25/22 18:33 LDL Cholesterol Direct 130 mg/dL (50-130) 02/25/22 18:33 HDL Cholesterol 22 mg/dL (40-59) L 02/25/22 18:33 Cholesterol/HDL Ratio 8.27 % 02/25/22 18:33 Vitamin B12 493.1 pg/mL (211-911) 02/26/22 14:00 Folate 20.00 ng/mL (7.3-26.0) 02/26/22 14:00 Procalcitonin < 0.05 ng/mL (<0.15) 02/26/22 07:37 TSH 1.820 mlU/mL (0.270-4.200) 02/26/22 14:00 Urine Color Yellow (Yellow) 02/26/22 00:27 Urine Turbidity Clear (Clear) 02/26/22 00:27 Urine pH 5.0 (5.0-7.0) 02/26/22 00:27 Ur Specific [place] 1.015 (1.003-1.030) 02/26/22 00:27 Urine Protein 30 mg/dl mg/dL (Negative) 02/26/22 00:27 Urine Glucose (UA) Negative mg/dL (Negative) 02/26/22 00:27 Urine Ketones Negative mg/dL (Negative) 02/26/22 00:27 Urine Blood Large (Negative) A 02/26/22 00:27 Urine Nitrite Negative (Negative) 02/26/22 00:27 Ur Reducing Substances Not Reportable 02/26/22 00:27 Urine Bilirubin Negative (Negative) 02/26/22 00:27 Urine Ictotest Not Reportable 02/26/22 00:27 Urine Urobilinogen < 2.0 mg/dL (<2.0) 02/26/22 00:27 Ur Leukocyte Esterase Negative (Negative) 02/26/22 00:27 Urine WBC (Auto) 33.0 /HPF (0.0-6.0) H 02/26/22 00:27 Urine RBC (Auto) 5.0 /HPF (0.0-6.0) 02/26/22 00:27 U Epithel Cells (Auto) 2.0 /HPF (0-13.0) 02/26/22 00:27 Urine Bacteria (Auto) 1+ /HPF (Negative) 02/26/22 00:27 Urine Mucus Few /HPF 02/26/22 00:27 Urine Yeast (Budding) 1+ /HPF 02/26/22 00:27 Urine Opiates Screen Presumptive negative 02/26/22 00:27 Urine Methadone Screen Presumptive negative 02/26/22 00:27 Ur Barbiturates Screen Presumptive negative 02/26/22 00:27 Ur Phencyclidine Scrn Presumptive negative 02/26/22 00:27 Ur Amphetamines Screen Presumptive negative 02/26/22 00:27 U Benzodiazepines Scrn Presumptive negative 02/26/22 00:27 Urine Cocaine Screen Presumptive negative 02/26/22 00:27 U Marijuana (THC) Screen Presumptive negative 02/26/22 00:27 Drugs of Abuse Note Disclamer 02/26/22 00:27 Plasma/Serum Alcohol < 0.01 % (0-0.07) 02/25/22 18:33 Syphilis IgG/IgM Ab Reactive (NonReactive) A 02/26/22 14:00 RPR Titer Nonreactive (1:1-1:2) 02/26/22 14:00 Microbiology: Microbiology 02/26/22 00:27 Urine,Clean Catch Urine Culture - Preliminary Escherichia Coli Sprague/IV: Voiding Method Incontinent Active Medications - Current Medications Current Medications: Generic Name Dose Route Start Last Admin Trade Name Freq PRN Reason Stop Dose Admin Acetaminophen 650 mg 02/25/22 23:06 03/01/22 03:43 Acetaminophen 325 Mg Tab PO 650 mg Q4H PRN Administration Pain MILD(1-3)/Fever >100.5/SMAUEL Acetaminophen 650 mg 02/26/22 22:28 02/26/22 22:40 Acetaminophen 650 Mg Rect Supp NE 650 mg Q4H PRN Administration Pain, Mild (1-3) Albuterol 2.5 mg 02/26/22 02:30 02/28/22 21:21 Albuterol 2.5 Mg/3 Ml Nebu IH 2.5 mg Q3HRT PRN Administration Shortness Of Breath Amlodipine Besylate 5 mg 02/26/22 10:00 02/28/22 10:24 Amlodipine 5 Mg Tab PO 5 mg DAILY DONOVAN Administration Atorvastatin Calcium 40 mg 02/26/22 22:00 02/28/22 21:09 Atorvastatin 40 Mg Tab PO 40 mg QHS DONOVAN Administration Clopidogrel Bisulfate 75 mg 02/26/22 10:00 02/28/22 10:24 Clopidogrel 75 Mg Tab PO 75 mg QDAY DONOVAN Administration Famotidine 20 mg 02/26/22 10:00 02/28/22 21:09 Famotidine 20 Mg/2 Ml Inj IV 20 mg BID DONOVAN Administration Heparin Sodium (Porcine) 5,000 unit 02/26/22 10:00 02/28/22 21:09 Heparin 5,000 Unit/1 Ml Vial SUB-Q 5,000 unit Q12HR DONOVAN Administration Ceftriaxone Sodium 1 gm in 50 mls @ 100 mls/hr 02/27/22 09:00 02/28/22 10:24 Rocephin/Ns 1 Gm/50 Ml IV 100 mls/hr Q24H DONOVAN Administration Protocol Dextrose 1,000 mls @ 100 mls/hr 02/27/22 11:00 02/28/22 03:50 D10w IV 100 mls/hr DIRECT DONOVAN Administration Sodium Chloride 1,000 mls @ 500 mls/hr 03/01/22 08:29 Nacl 0.9% 1000 Ml IV 03/01/22 10:28 BOLUS ONE Labetalol HCl 10 mg 02/25/22 23:06 Labetalol 20 Mg/4 Ml Inj IV Q5MIN PRN to maintain SBP < 180 Lisinopril 10 mg 02/26/22 10:00 02/28/22 10:24 Lisinopril 10 Mg Tab PO 10 mg QDAY DONOVAN Administration Metoprolol Tartrate 25 mg 02/26/22 08:00 02/28/22 18:08 Metoprolol Tartrate 25 Mg Tab PO 25 mg BID@0800,1700 DONOVAN Administration Morphine Sulfate 2 mg 02/25/22 23:06 Morphine 2 Mg/1 Ml Inj IV Q4H PRN Pain, Moderate (4-6) Morphine Sulfate 4 mg 02/25/22 23:06 Morphine 4 Mg/1 Ml Inj IV Q4H PRN Pain , Severe (7-10) Ondansetron HCl 4 mg 02/25/22 23:06 Ondansetron 4 Mg/2 Ml Inj IV Q8H PRN Nausea And Vomiting Sodium Chloride 10 ml 02/26/22 10:00 02/28/22 21:10 Sodium Chloride 0.9% 10 Ml Flush Syringe IV 10 ml BID DONOVAN Administration Sodium Chloride 10 ml 02/25/22 23:06 Sodium Chloride 0.9% 10 Ml Flush Syringe IV PRN PRN LINE FLUSH
[2022-03-01] MEDS ORDERED: SODIUM CHLORIDE 0.9% 1000 ML 1,000 ML IV ONE (09:00)
--- NOTE | 2022-03-01 09:34 | XRay Report ---
CHEST 1 VIEW 03/01/2022 8:19 AM INDICATION / CLINICAL INFORMATION: Evaluate for possible effusion/edema. COMPARISON: 02/25/22 FINDINGS: SUPPORT DEVICES: None. HEART / MEDIASTINUM: No significant abnormality. LUNGS / PLEURA: Patchy density in the right midlung and left lung base appear unchanged. No pneumotho rax. ADDITIONAL FINDINGS: No significant additional findings. IMPRESSION: 1. No change in bilateral pulmonary opacities. Signer Name: Paulina Croft MD Signed: 03/01/2022 9:30 AM Workstation Name: [id number]
[2022-03-01 09:45] LABS: Basophils % (Manual) 0 % (0.0-1.8); Eosinophils % (Manual) 0 % (0.0-4.3); Total Cells Counted 100
[2022-03-01 09:46] LABS: Anisocytosis 1+; Hypochromasia 1+; Ovalocytes Few; Platelet Estimate Consistent w Auto; Poikilocytosis 1+; Tear Drop Cells Few
[2022-03-01] MEDS: amLODIPine 5 MG TAB PO SCH (10:19)
[2022-03-01] MEDS: METOPROLOL TARTRATE 25 MG TAB PO SCH ×2 (10:19→16:48)
[2022-03-01] MEDS: FAMOTIDINE 20 MG/2 ML INJ IV SCH ×2 (10:20→21:01)
[2022-03-01] MEDS: HEPARIN 5,000 UNIT/1 ML VIAL SUB-Q SCH ×2 (10:20→21:01)
[2022-03-01] MEDS: CLOPIDOGREL 75 MG TAB PO SCH (10:20)
[2022-03-01] MEDS: LISINOPRIL 10 MG TAB PO SCH (10:20)
[2022-03-01] MEDS: cefTRIAXone/NS 1 GM/50 ML 1 GM/50 ML BAG IV SCH (10:20)
--- NOTE | 2022-03-02 09:01 | Discharge Summary ---
Providers - Providers Date of Admission: 02/25/22 23:06 Date of discharge: 03/02/22 Attending physician: DEB ORTEGA MD 02/25/22 23:06 Consult to Physician [CONS] Routine Comment: Consulting Provider: GEORGE COSME Physician Instructions: Reason For Exam: cva Occupational Therapy Evaluate and Treat [CONS] Routine Comment: Reason For Exam: Neuro deficits Physical Therapy Evaluation and Treat [CONS] Routine Comment: Reason For Exam: Neuro deficits 02/26/22 07:26 Speech Therapy Evaluation and Treat [CONS] Routine Reason For Exam: Stroke workup 02/28/22 08:34 Speech Therapy Evaluation and Treat [CONS] Urgent Reason For Exam: swallow evaluation Primary care physician: [facility] Hospitalization Reason for admission: Acute metabolic encephalopathy, hypokalemia Condition: Stable Pertinent studies: Reviewed. Procedures: None. 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 On arrival, the patient was found to be hemodynamically stable. There was concern for acute ischemic CVA, and the patient underwent CT head noncontrast that was found to be unremarkable. On presentation, the tele- neurology was consulted, and they deemed that the patient was outside of the window to receive tPA. The patient was admitted for management of presumed acute ischemic CVA. Patient had labs are remarkable for potassium 3.3, creatinine 1.4, and urinalysis revealing WBCs 33 with 1+ bacteria. Patient was unable to obtain MRI brain due to agitation despite sedation. Given further physical examination, it was deemed that there was low clinical suspicion of the patient had an acute ischemic CVA but was instead having acute metabolic encephalopathy in the setting of sepsis secondary to UTI. Patient was treated with IV antibiotics until he remained afebrile for at least 24 hours. Patient will be discharged with Levaquin 500 mg daily to complete a total antibiotic course of 7 days. Patient's family has been educated, and they expressed understanding. Patient is medically clear for discharge. Disposition: 01 HOME / SELF CARE / HOMELESS Final Discharge Diagnosis (Prints w/discharge instructions): Acute metabolic encephalopathy, sepsis secondary to E. coli UTI with hematuria, hypokalemia, hyperlipidemia, hypertension, noninsulin-dependent type 2 diabetes mellitus, hypocalcemia, dementia, obesity. Time spent for discharge: 45 min Core Measure Documentation - Palliative Care Palliative Care/ Comfort Measures: Not Applicable - Core Measures Any of the following diagnoses?: history only Exam - Constitutional Vitals: Temp Pulse Resp BP Pulse Ox 98.9 F 94 H 18 130/71 91 03/02/22 07:48 03/02/22 07:48 03/02/22 04:52 03/02/22 07:48 03/02/22 07:48 General appearance: Present: no acute distress, well-nourished, other (Nonverbal at baseline) - EENT Eyes: Present: PERRL, EOM intact ENT: hearing intact, clear oral mucosa - Neck Neck: Present: supple, normal ROM - Respiratory Respiratory effort: normal Respiratory: bilateral: diminished - Cardiovascular Rhythm: regular Heart Sounds: Present: S1 & S2 - Extremities Extremities: no ischemia, pulses intact, pulses symmetrical, No edema, normal temperature, normal color Peripheral Pulses: within normal limits - Abdominal General gastrointestinal: Present: soft, non-tender, non-distended, normal bowel sounds Male genitourinary: Present: deferred - Rectal Rectal Exam: deferred - Integumentary Integumentary: Present: clear, warm, dry - Musculoskeletal Musculoskeletal: left sided weakness - Psychiatric Psychiatric: appropriate mood/affect, cooperative - Neurologic Neurologic: CNII-XII intact - Allied Health Allied health notes reviewed: nursing Plan Activity: advance as tolerated Diet: low salt, diabetic Additional Instructions: Patient is a 71-year-old male past medical history of hypertension, hyperlipidemia, dementia, 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 On arrival, the patient was found to be hemodynamically stable. There was concern for acute ischemic CVA, and the patient underwent CT head noncontrast that was found to be unremarkable. On presentation, the tele-neurology was consulted, and they deemed that the patient was outside of the window to receive tPA. The patient was admitted for management of presumed acute ischemic CVA. Patient had labs are remarkable for potassium 3.3, creatinine 1.4, and urinalysis revealing WBCs 33 with 1+ bacteria. Patient was unable to obtain MRI brain due to agitation despite sedation. Given further physical examination, it was deemed that there was low clinical suspicion of the patient had an acute ischemic CVA but was instead having acute metabolic encephalopathy in the setting of sepsis secondary to UTI. Patient was treated with IV antibiotics until he remained afebrile for at least 24 hours. Patient will be discharged with Levaquin 500 mg daily to complete a total antibiotic course of 7 days. Patient's family has been educated, and they expressed understanding. Patient is medically clear for discharge. Care Plan Goals: Patient is medically cleared for discharge. 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 On arrival, the patient was found to be hemodynamically stable. There was concern for acute ischemic CVA, and the patient underwent CT head noncontrast that was found to be unremarkable. On presentation, the tele- neurology was consulted, and they deemed that the patient was outside of the window to receive tPA. The patient was admitted for management of presumed acute ischemic CVA. Patient had labs are remarkable for potassium 3.3, creatinine 1.4, and urinalysis revealing WBCs 33 with 1+ bacteria. Patient was unable to obtain MRI brain due to agitation despite sedation. Given further physical examination, it was deemed that there was low clinical suspicion of the patient had an acute ischemic CVA but was instead having acute metabolic encephalopathy in the setting of sepsis secondary to UTI. Patient was treated with IV antibiotics until he remained afebrile for at least 24 hours. Patient will be discharged with Levaquin 500 mg daily to complete a total antibiotic course of 7 days. Patient's family has been educated, and they expressed understanding. Patient is medically clear for discharge. Follow up with: PRIMARY CARE, [Primary Care Provider] - 3-5 Days Prescriptions: AtorvaSTATin [Lipitor] 40 mg PO QHS #30 tablet amLODIPine 5 mg PO DAILY #30 tab Metoprolol [Lopressor TAB] 25 mg PO BID #60 tab Clopidogrel [Plavix] 75 mg PO QDAY #30 tablet lisinopriL [Zestril TAB] 10 mg PO QDAY #30 tab
[2022-03-02] MEDS: HEPARIN 5,000 UNIT/1 ML VIAL SUB-Q SCH ×2 (10:19→21:11)
[2022-03-02] MEDS: METOPROLOL TARTRATE 25 MG TAB PO SCH ×2 (10:19→17:15)
[2022-03-02] MEDS: CLOPIDOGREL 75 MG TAB PO SCH (10:19)
[2022-03-02] MEDS: FAMOTIDINE 20 MG/2 ML INJ IV SCH (10:19)
[2022-03-02] MEDS: LISINOPRIL 10 MG TAB PO SCH (10:19)
[2022-03-02] MEDS: amLODIPine 5 MG TAB PO SCH (10:19)
[2022-03-02] MEDS: cefTRIAXone/NS 1 GM/50 ML 1 GM/50 ML BAG IV SCH (10:20)
[2022-03-02] MEDS: ALBUTEROL 2.5 MG/3 ML NEBU IH PRN (21:00)
[2022-03-02] MEDS: FAMOTIDINE 20 MG TAB PO SCH (21:11)
[2022-03-03] MEDS ORDERED: FUROSEMIDE 20 MG TAB PO NR (07:06)
[2022-03-03] MEDS: LISINOPRIL 10 MG TAB PO SCH (09:27)
[2022-03-03] MEDS: amLODIPine 5 MG TAB PO SCH (09:27)
[2022-03-03] MEDS: METOPROLOL TARTRATE 25 MG TAB PO SCH ×2 (09:27→16:41)
[2022-03-03] MEDS: cefTRIAXone/NS 1 GM/50 ML 1 GM/50 ML BAG IV SCH (09:27)
[2022-03-03] MEDS: FAMOTIDINE 20 MG TAB PO SCH ×2 (09:27→21:12)
[2022-03-03] MEDS: CLOPIDOGREL 75 MG TAB PO SCH (09:27)
[2022-03-03] MEDS: HEPARIN 5,000 UNIT/1 ML VIAL SUB-Q SCH ×2 (09:28→21:13)
[2022-03-03] MEDS: ALBUTEROL 2.5 MG/3 ML NEBU IH PRN (11:10)
--- NOTE | 2022-03-03 12:55 | Progress Note ---
Assessment and Plan Assessment and plan: #Possible acute ischemic CVAruled out #Acute metabolic encephalopathyresolved Lower clinical suspicion after patient's daughter described him as being at his baseline. Higher clinical suspicion for encephalopathy secondary to UTI. Unremarkable CT head noncontrast Discontinued MRI brain due to low clinical suspicion + patient being unable to remain still for imaging. Hemoglobin A1c 7.0. Lipid panel: Triglycerides 198, cholesterol 182, LDL 130, HDL 22. Neurology consulted; appreciate recs. Physical therapy and Occupational Therapy consulted. #Sepsis 2/2 E. coli UTI with hematuria #Leukocytosisimproving WBC 17.9--> 14.7--> 13.8--> 13.4 Urinalysis revealing large blood, WBC 32, 1+ bacteria. Unremarkable blood culture. Continue Rocephin 1 g daily (started 02/27/2022 and antibiotic course will complete on 03/05/2022). Patient became febrile to 100.7 on 03/01/2022. Monitoring for an additional 24 hours to ensure the patient does not become febrile again. #Acute hypoxic respiratory failure - etiology: Concern for infectious etiology. Pending coronavirus PCR - baseline oxygen requirements: Room air - supplemental oxygen: 2 L nasal cannula - Continue protocol: continue pulse oximetry, wean oxygen as tolerated, ordered incentive spirometry and educated patient on how to use it and its importance. - continue to monitor #Hypokalemiaresolved Potassium 3.3--> 3.2 Continue to replete. Repeat with BMP in the morning. #Hyperlipidemia #Hypertension - home medications: Amlodipine 5 mg daily, lisinopril 10 mg daily, atorvastatin 40 mg daily - current medications: Amlodipine 5 mg daily, lisinopril 10 mg daily, atorvastatin 40 mg daily - SBP goal <160 and DBP goal <90 while inpatient - continue to monitor #Non-insulin dependent type II diabetes mellitus - hemoglobin A1c: 7.0 - home regimen: None - current regimen: Moderate SSI - blood glucose goal 140-180 while inpatient - continue to monitor #Hypocalcemia Calcium 8.1 Replete. Continue to monitor. #Dementia Continue orienting patient, turning off visual stimuli at bedtime, and keeping blinds/curtains open during the day. #Obesity #Weight loss counseling #Exercise counseling - BMI 31.7 - Counseled patient on the importance of weight loss, incorporating exercise, and dietary changes (lean meats, fresh fruits and vegetables, and water intake). Patient expresses understanding. - Time: +15 min #Advanced care planning -Disease education conducted, care plan discussed, diagnoses discussed, prognosis discussed, and patient acknowledges understanding with care plan -Time: +30 min #Discharge planning - Patient is pending resolution of acute hypoxic respiratory failure. - Case management has been made aware. Disposition Plan: Continue medical management Total Time Spent with Patient (Minutes): 45 minutes History Interval history: No acute events overnight. Hospitalist Physical - Constitutional Vitals: Temp Pulse Resp BP Pulse Ox 97.8 F 77 18 126/72 88 03/03/22 08:00 03/03/22 11:16 03/03/22 11:16 03/03/22 08:00 03/03/22 11:10 General appearance: Present: no acute distress, well-nourished, other (Nonverbal at baseline) - EENT Eyes: Present: PERRL, EOM intact ENT: hearing intact, clear oral mucosa, dentition normal - Neck Neck: Present: supple, normal ROM - Respiratory Respiratory effort: normal Respiratory: bilateral: diminished (2 L nasal cannula) - Cardiovascular Rhythm: regular Heart Sounds: Present: S1 & S2 - Extremities Extremities: no ischemia, pulses intact, pulses symmetrical, No edema, normal t emperature, normal color Peripheral Pulses: within normal limits - Abdominal General gastrointestinal: soft, non-tender, non-distended, normal bowel sounds - Integumentary Integumentary: Present: clear, warm, dry - Psychiatric Psychiatric: appropriate mood/affect, cooperative - Neurologic Neurologic: focal deficits (Left-sided weakness) - Allied Health Allied health notes reviewed: nursing HEART Score - HEART Score Troponin: Troponin T < 0.010 ng/mL (0.00-0.029) 02/25/22 18:33 Results - Labs CBC & Chem 7: 03/01/22 04:10 03/01/22 04:10 Labs: Laboratory Last Values WBC 13.9 K/mm3 (4.5-11.0) H 03/01/22 04:10 RBC 5.61 M/mm3 (3.65-5.03) H 03/01/22 04:10 Hgb 13.2 gm/dl (11.8-15.2) 03/01/22 04:10 Hct 42.8 % (35.5-45.6) 03/01/22 04:10 MCV 76 fl (84-94) L 03/01/22 04:10 MCH 24 pg (28-32) L 03/01/22 04:10 MCHC 31 % (32-34) L 03/01/22 04:10 RDW 17.8 % (13.2-15.2) H 03/01/22 04:10 Plt Count 161 K/mm3 (140-440) 03/01/22 04:10 Lymph % (Auto) Oil [employer]er Technician 03/01/22 04:10 Lymph # (Auto) Oil Burner Technician 03/01/22 04:10 Add Manual Diff Complete 03/01/22 04:10 Total Counted 100 03/01/22 04:10 Seg Neutrophils % Oil [employer]er Technician 03/01/22 04:10 Seg Neuts % (Manual) 21.0 % (40.0-70.0) L 03/01/22 04:10 Band Neutrophils % 0 % 03/01/22 04:10 Lymphocytes % (Manual) 75.0 % (13.4-35.0) H 03/01/22 04:10 Reactive Lymphs % (Man) 0 % 03/01/22 04:10 Monocytes % (Manual) 4.0 % (0.0-7.3) 03/01/22 04:10 Eosinophils % (Manual) 0 % (0.0-4.3) 03/01/22 04:10 Basophils % (Manual) 0 % (0.0-1.8) 03/01/22 04:10 Metamyelocytes % 0 % 03/01/22 04:10 Myelocytes % 0 % 03/01/22 04:10 Promyelocytes % 0 % 03/01/22 04:10 Blast Cells % 0 % 03/01/22 04:10 Nucleated RBC % Not Reportable 03/01/22 04:10 Seg Neutrophils # Man 2.9 K/mm3 (1.8-7.7) 03/01/22 04:10 Band Neutrophils # 0.0 K/mm3 03/01/22 04:10 Lymphocytes # (Manual) 10.4 K/mm3 (1.2-5.4) H 03/01/22 04:10 Abs React Lymphs (Man) 0.0 K/mm3 03/01/22 04:10 Monocytes # (Manual) 0.6 K/mm3 (0.0-0.8) 03/01/22 04:10 Eosinophils # (Manual) 0.0 K/mm3 (0.0-0.4) 03/01/22 04:10 Basophils # (Manual) 0.0 K/mm3 (0.0-0.1) 03/01/22 04:10 Metamyelocytes # 0.0 K/mm3 03/01/22 04:10 Myelocytes # 0.0 K/mm3 03/01/22 04:10 Promyelocytes # 0.0 K/mm3 03/01/22 04:10 Blast Cells # 0.0 K/mm3 03/01/22 04:10 WBC Morphology Not Reportable 03/01/22 04:10 Hypersegmented Neuts Not Reportable 03/01/22 04:10 Hyposegmented Neuts Not Reportable 03/01/22 04:10 Hypogranular Neuts Not Reportable 03/01/22 04:10 Smudge Cells Not Reportable 03/01/22 04:10 Toxic Granulation Not Reportable 03/01/22 04:10 Toxic Vacuolation Not Reportable 03/01/22 04:10 Dohle Bodies Not Reportable 03/01/22 04:10 Pelger-Huet Anomaly Not Reportable 03/01/22 04:10 Benja Rods Not Reportable 03/01/22 04:10 Platelet Estimate Consistent w auto 03/01/22 04:10 Clumped Platelets Not Reportable 03/01/22 04:10 Plt Clumps, EDTA Not Reportable 03/01/22 04:10 Large Platelets Not Reportable 03/01/22 04:10 Giant Platelets Not Reportable 03/01/22 04:10 Platelet Satelliting Not Reportable 03/01/22 04:10 Plt Morphology Comment Not Reportable 03/01/22 04:10 RBC Morphology Not Reportable 03/01/22 04:10 Dimorphic RBCs Not Reportable 03/01/22 04:10 Polychromasia Not Reportable 03/01/22 04:10 Hypochromasia 1+ 03/01/22 04:10 Poikilocytosis 1+ 03/01/22 04:10 Anisocytosis 1+ 03/01/22 04:10 Microcytosis Not Reportable 03/01/22 04:10 Macrocytosis Not Reportable 03/01/22 04:10 Spherocytes Not Reportable 03/01/22 04:10 Pappenheimer Bodies Not Reportable 03/01/22 04:10 Sickle Cells Not Reportable 03/01/22 04:10 Target Cells Not Reportable 03/01/22 04:10 Tear Drop Cells Few 03/01/22 04:10 Ovalocytes Few 03/01/22 04:10 Helmet Cells Not Reportable 03/01/22 04:10 [place] Bodies Not Reportable 03/01/22 04:10 [place] Rings Not Reportable 03/01/22 04:10 [place] Cells Not Reportable 03/01/22 04:10 Bite Cells Not Reportable 03/01/22 04:10 Crenated Cell Not Reportable 03/01/22 04:10 Elliptocytes Few 03/01/22 04:10 Acanthocytes (Spur) Not Reportable 03/01/22 04:10 Rouleaux Not Reportable 03/01/22 04:10 Hemoglobin C Crystals Not Reportable 03/01/22 04:10 Schistocytes Not Reportable 03/01/22 04:10 Malaria parasites Not Reportable 03/01/22 04:10 Hai Bodies Not Reportable 03/01/22 04:10 Hem Pathologist Commnt No 03/01/22 04:10 PT 13.6 Sec. (12.2-14.9) 02/25/22 18:33 INR 0.94 (0.87-1.13) 02/25/22 18:33 APTT 29.5 Sec. (24.2-36.6) 02/25/22 18:33 Sodium 137 mmol/L (137-145) 03/01/22 04:10 Potassium 3.6 mmol/L (3.6-5.0) 03/01/22 04:10 Chloride 99.9 mmol/L (98-107) 03/01/22 04:10 Carbon Dioxide 23 mmol/L (22-30) 03/01/22 04:10 Anion Gap 18 mmol/L 03/01/22 04:10 BUN 7 mg/dL (9-20) L 03/01/22 04:10 Creatinine 0.9 mg/dL (0.8-1.3) 03/01/22 04:10 Estimated GFR > 60 ml/min 03/01/22 04:10 BUN/Creatinine Ratio 8 % 03/01/22 04:10 Glucose 114 mg/dL (75-100) H 03/01/22 04:10 POC Glucose 118 mg/dL (70-105) H 03/03/22 11:52 Hemoglobin A1c 7.0 % (4-6) H 02/26/22 07:37 Calcium 8.8 mg/dL (8.4-10.2) 03/01/22 04:10 Total Bilirubin 0.60 mg/dL (0.1-1.2) 02/25/22 18:33 AST 33 units/L (5-40) 02/25/22 18:33 ALT 20 units/L (7-56) 02/25/22 18:33 Alkaline Phosphatase 71 units/L (35-129) 02/25/22 18:33 Troponin T < 0.010 ng/mL (0.00-0.029) 02/25/22 18:33 Total Protein 7.7 g/dL (6.3-8.2) 02/25/22 18:33 Albumin 3.8 g/dL (3.9-5) L 02/25/22 18:33 Albumin/Globulin Ratio 1.0 % 02/25/22 18:33 Prealbumin 0.109 g/L (0.200-0.400) L 02/26/22 14:00 Triglycerides 198 mg/dL (2-149) H 02/25/22 18:33 Cholesterol 182 mg/dL (50-199) 02/25/22 18:33 LDL Cholesterol Direct 130 mg/dL (50-130) 02/25/22 18:33 HDL Cholesterol 22 mg/dL (40-59) L 02/25/22 18:33 Cholesterol/HDL Ratio 8.27 % 02/25/22 18:33 Vitamin B12 493.1 pg/mL (211-911) 02/26/22 14:00 Folate 20.00 ng/mL (7.3-26.0) 02/26/22 14:00 Procalcitonin < 0.05 ng/mL (<0.15) 02/26/22 07:37 TSH 1.820 mlU/mL (0.270-4.200) 02/26/22 14:00 Urine Color Yellow (Yellow) 02/26/22 00:27 Urine Turbidity Clear (Clear) 02/26/22 00:27 Urine pH 5.0 (5.0-7.0) 02/26/22 00:27 Ur Specific [place] 1.015 (1.003-1.030) 02/26/22 00:27 Urine Protein 30 mg/dl mg/dL (Negative) 02/26/22 00:27 Urine Glucose (UA) Negative mg/dL (Negative) 02/26/22 00:27 Urine Ketones Negative mg/dL (Negative) 02/26/22 00:27 Urine Blood Large (Negative) A 02/26/22 00: Urine Nitrite Negative (Negative) 02/26/22 00:27 Ur Reducing Substances Not Reportable 02/26/22 00: Urine Bilirubin Negative (Negative) 02/26/22 00: Urine Ictotest Not Reportable 02/26/22 00: Urine Urobilinogen < 2.0 mg/dL (<2.0) 02/26/22 00:27 Ur Leukocyte Esterase Negative (Negative) 02/26/22 00:27 Urine WBC (Auto) 33.0 /HPF (0.0-6.0) H 02/26/22 00:27 Urine RBC (Auto) 5.0 /HPF (0.0-6.0) 02/26/22 00:27 U Epithel Cells (Auto) 2.0 /HPF (0-13.0) 02/26/22 00:27 Urine Bacteria (Auto) 1+ /HPF (Negative) 02/26/22 00:27 Urine Mucus Few /HPF 02/26/22 00:27 Urine Yeast (Budding) 1+ /HPF 02/26/22 00:27 Urine Opiates Screen Presumptive negative 02/26/22 00:27 Urine Methadone Screen Presumptive negative 02/26/22 00:27 Ur Barbiturates Screen Presumptive negative 02/26/22 00:27 Ur Phencyclidine Scrn Presumptive negative 02/26/22 00:27 Ur Amphetamines Screen Presumptive negative 02/26/22 00:27 U Benzodiazepines Scrn Presumptive negative 02/26/22 00:27 Urine Cocaine Screen Presumptive negative 02/26/22 00:27 U Marijuana (THC) Screen Presumptive negative 02/26/22 00:27 Drugs of Abuse Note Disclamer 02/26/22 00:27 Plasma/Serum Alcohol < 0.01 % (0-0.07) 02/25/22 18:33 Syphilis IgG/IgM Ab Reactive (NonReactive) A 02/26/22 14:00 RPR Titer Nonreactive (1:1-1:2) 02/26/22 14:00 [place]/IV: Voiding Method Incontinent Active Medications - Current Medications Current Medications: Generic Name Dose Route Start Last Admin Trade Name Freq PRN Reason Stop Dose Admin Acetaminophen 650 mg 02/25/22 23:06 03/01/22 03:43 Acetaminophen 325 Mg Tab PO 650 mg Q4H PRN Administration Pain MILD(1-3)/Fever >100.5/SAMUEL Acetaminophen 650 mg 02/26/22 22:28 02/26/22 22:40 Acetaminophen 650 Mg Rect Supp ND 650 mg Q4H PRN Administration Pain, Mild (1-3) Albuterol 2.5 mg 02/26/22 02:30 03/03/22 11:10 Albuterol 2.5 Mg/3 Ml Nebu IH 2.5 mg Q3HRT PRN Administration Shortness Of Breath Amlodipine Besylate 5 mg 02/26/22 10:00 03/03/22 09:27 Amlodipine 5 Mg Tab PO 5 mg DAILY DONOVAN Administration Atorvastatin Calcium 40 mg 02/26/22 22:00 03/02/22 21:11 Atorvastatin 40 Mg Tab PO 40 mg QHS DONOVAN Administration Clopidogrel Bisulfate 75 mg 02/26/22 10:00 03/03/22 09:27 Clopidogrel 75 Mg Tab PO 75 mg QDAY DONOVAN Administration Famotidine 20 mg 03/02/22 22:00 03/03/22 09:27 Famotidine 20 Mg Tab PO 20 mg BID DONOVAN Administration Heparin Sodium (Porcine) 5,000 unit 02/26/22 10:00 03/03/22 09:28 Heparin 5,000 Unit/1 Ml Vial SUB-Q 5,000 unit Q12HR DONOVAN Administration Ceftriaxone Sodium 1 gm in 50 mls @ 100 mls/hr 02/27/22 09:00 03/03/22 09:27 Rocephin/Ns 1 Gm/50 Ml IV 03/05/22 09:29 100 mls/hr Q24H DONOVAN Administration Protocol Labetalol HCl 10 mg 02/25/22 23:06 Labetalol 20 Mg/4 Ml Inj IV Q5MIN PRN to maintain SBP < 180 Lisinopril 10 mg 02/26/22 10:00 03/03/22 09:27 Lisinopril 10 Mg Tab PO 10 mg QDAY DONOVAN Administration Metoprolol Tartrate 25 mg 02/26/22 08:00 03/03/22 09:27 Metoprolol Tartrate 25 Mg Tab PO 25 mg BID@0800,1700 DONOVAN Administration Morphine Sulfate 2 mg 02/25/22 23:06 Morphine 2 Mg/1 Ml Inj IV Q4H PRN Pain, Moderate (4-6) Morphine Sulfate 4 mg 02/25/22 23:06 Morphine 4 Mg/1 Ml Inj IV Q4H PRN Pain , Severe (7-10) Ondansetron HCl 4 mg 02/25/22 23:06 Ondansetron 4 Mg/2 Ml Inj IV Q8H PRN Nausea And Vomiting Sodium Chloride 10 ml 02/26/22 10:00 03/03/22 09:28 Sodium Chloride 0.9% 10 Ml Flush Syringe IV 10 ml BID DONOVAN Administration Sodium Chloride 10 ml 02/25/22 23:06 Sodium Chloride 0.9% 10 Ml Flush Syringe IV PRN PRN LINE FLUSH
[2022-03-03] MEDS: dexAMETHasone 4 MG/ML VIAL IV SCH (16:41)
[2022-03-04] MEDS: METOPROLOL TARTRATE 25 MG TAB PO SCH (08:55)
[2022-03-04] MEDS ORDERED: REMDESIVIR 200 MG in SODIUM CHLORIDE 0.9% 250ML 250 ML IV ONE (10:30)
[2022-03-04] MEDS: cefTRIAXone/NS 1 GM/50 ML 1 GM/50 ML BAG IV SCH (11:40)
[2022-03-04] MEDS: HEPARIN 5,000 UNIT/1 ML VIAL SUB-Q SCH ×2 (11:40→22:59)
[2022-03-04] MEDS: CLOPIDOGREL 75 MG TAB PO SCH (11:41)
[2022-03-04] MEDS: amLODIPine 5 MG TAB PO SCH (11:41)
[2022-03-04] MEDS: dexAMETHasone 4 MG/ML VIAL IV SCH (11:41)
[2022-03-04] MEDS: FAMOTIDINE 20 MG TAB PO SCH ×2 (11:41→22:59)
[2022-03-04] MEDS: LISINOPRIL 10 MG TAB PO SCH (11:42)
--- NOTE | 2022-03-04 12:26 | Progress Note ---
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 On arrival, the patient was found to be hemodynamically stable. There was concern for acute ischemic CVA, and the patient underwent CT head noncontrast that was found to be unremarkable. On presentation, the tele- neurology was consulted, and they deemed that the patient was outside of the window to receive tPA. The patient was admitted for management of presumed acute ischemic CVA. Patient had labs are remarkable for potassium 3.3, creatinine 1.4, and urinalysis revealing WBCs 33 with 1+ bacteria. Patient was unable to obtain MRI brain due to agitation despite sedation. Given further physical examination, it was deemed that there was low clinical suspicion of the patient had an acute ischemic CVA but was instead having acute metabolic encephalopathy in the setting of sepsis secondary to UTI. Patient was treated with IV antibiotics. He was planned for discharge but Screening COVID test become positive. He is being managed for COVID-19 pneumonia. Daily clinical course: 03/04/22; patient was tested positive for COVID-19 on March 03. Due to advanced age and multiple comorbidities and risk for worsening symptoms patient initiated on dexamethasone and will start on remdesivir daily. We will also consult ID for further recommendation. Continue to follow clinically with supportive care and follow inflammatory markers. Assessment and plan: #Sepsis 2/2 E. coli UTI with hematuria, POA #Leukocytosisimproving WBC 17.9--> 14.7--> 13.8--> 13.4 Urinalysis revealing large blood, WBC 32, 1+ bacteria. Unremarkable blood culture. Continue Rocephin 1 g daily (started 02/27/2022 and antibiotic course will comp lete on 03/05/2022). Patient became febrile to 100.7 on 03/01/2022. Monitoring for an additional 24 hours to ensure the patient does not become febrile again. #COVID-19 pneumonia Positive coronavirus PCR (03/03/2022) Starting IV dexamethasone 8 mg daily x7 doses. Ordering ferritin, D-dimer, CRP. Infectious disease consulted; pending recs Starting droplet and airborne precautions. Continue to monitor -Initiated on remdesivir for total 5 days due to possibility of worsening symptoms and decompensation due to advanced age and multiple comorbidities on 03/04/22 #Possible acute ischemic CVAruled out #Acute metabolic encephalopathy patient on restrain Lower clinical suspicion after patient's daughter described him as being at his baseline. Higher clinical suspicion for encephalopathy secondary to UTI. Unremarkable CT head noncontrast Discontinued MRI brain due to low clinical suspicion + patient being unable to remain still for imaging. Hemoglobin A1c 7.0. Lipid panel: Triglycerides 198, cholesterol 182, LDL 130, HDL 22. Neurology consulted; appreciate recs. Physical therapy and Occupational Therapy consulted. #Acute hypoxic respiratory failure - etiology: Likely due to COVID-19 pneumonia - baseline oxygen requirements: Room air - supplemental oxygen: 2 L nasal cannula - Continue protocol: continue pulse oximetry, wean oxygen as tolerated, ordered incentive spirometry and educated patient on how to use it and its importance. - continue to monitor #Hypokalemiaresolved Potassium 3.3--> 3.2 Continue to replete. Repeat with BMP in the morning. #Hyperlipidemia #Hypertension - home medications: Amlodipine 5 mg daily, lisinopril 10 mg daily, atorvastatin 40 mg daily - current medications: Amlodipine 5 mg daily, lisinopril 10 mg daily, atorvastatin 40 mg daily - SBP goal <160 and DBP goal <90 while inpatient - continue to monitor #Non-insulin dependent type II diabetes mellitus - hemoglobin A1c: 7.0 - home regimen: None - current regimen: Moderate SSI - blood glucose goal 140-180 while inpatient - continue to monitor #Hypocalcemia Calcium 8.1 Replete. Continue to monitor. #Dementia Continue orienting patient, turning off visual stimuli at bedtime, and keeping blinds/curtains open during the day. #Obesity #Weight loss counseling #Exercise counseling - BMI 31.7 - Counseled patient on the importance of weight loss, incorporating exercise, and dietary changes (lean meats, fresh fruits and vegetables, and water intake). Patient expresses understanding. - Time: +15 min #Advanced care planning -Disease education conducted, care plan discussed, diagnoses discussed, prognosis discussed, and patient acknowledges understanding with care plan -Time: +30 min #Discharge planning - Patient is pending resolution of acute hypoxic respiratory failure and completion of remdesivir. - Case management has been made aware. Subjective Date of service: 03/04/22 Interval history: Patient seen and examined. Medical records and medication list reviewed. No acute event overnight noted by the RN. Patient remains confused, has soft mittens on both hands Discussed plan of care at bedside with patient's RN Initiated on remdesivir today. Objective - Exam Narrative Exam: General appearance: Present: no acute distress, well-nourished, other (Nonverbal at baseline) - EENT Eyes: Present: PERRL, EOM intact ENT: hearing intact, clear oral mucosa, dentition normal - Neck Neck: Present: supple, normal ROM - Respiratory Respiratory effort: normal Respiratory: bilateral: diminished (2 L nasal cannula) - Cardiovascular Rhythm: regular Heart Sounds: Present: S1 & S2 - Extremities Extremities: no ischemia, pulses intact, pulses symmetrical, No edema, normal temperature, normal color Peripheral Pulses: within normal limits - Abdominal General gastrointestinal: soft, non-tender, non-distended, normal bowel sounds - Integumentary Integumentary: Present: clear, warm, dry - Psychiatric Psychiatric: appropriate mood/affect, cooperative - Neurologic Neurologic: focal deficits (Left-sided weakness) - Constitutional Vitals: Vital Signs - 12hr 03/04/22 03/04/22 03/04/22 06:13 08:55 11:17 Temperature 98.2 F 98.9 F Pulse Rate 74 74 68 Respiratory 17 22 Rate Blood Pressure 119/71 117/66 Blood Pressure 119/71 [Left] O2 Sat by Pulse 97 95 Oximetry 03/04/22 11:42 Temperature Pulse Rate 65 Respiratory Rate Blood Pressure 117/66 Blood Pressure [Left] O2 Sat by Pulse Oximetry - Labs CBC & Chem 7: 03/05/22 06:57 03/07/22 06:42 Labs: Abnormal lab results 03/03/22 03/03/22 03/03/22 Range/Units 10:15 18:14 18:14 D-Dimer 756.34 H (0-234) ng/mlDDU POC Glucose (70-105) mg/dL C-Reactive Protein 6.20 H (0.00-1.30) mg/dL Coronavirus (PCR) Positive A (Negative) 03/03/22 03/04/22 03/04/22 Range/Units 21:11 06:27 11:14 D-Dimer (0-234) ng/mlDDU POC Glucose 154 H 145 H 129 H (70-105) mg/dL C-Reactive Protein (0.00-1.30) mg/dL Coronavirus (PCR) (Negative) HEART Score - HEART Score Troponin: Troponin T < 0.010 ng/mL (0.00-0.029) 02/25/22 18:33
[2022-03-04] MEDS: SODIUM CHLORIDE 0.9% 50 ML IVPB IV SCH (12:47)
[2022-03-04] MEDS ORDERED: dexAMETHasone 4 MG/ML VIAL IV SCH (12:54)
--- NOTE | 2022-03-04 13:00 | Consultation ---
History of Present Illness - Reason for Consult Consult date: 03/04/22 COVID-19 Requesting physician: DEB ORTEGA - History of Present Illness The patient is a 71-year-old male with hypertension, hyperlipidemia, dementia was brought to the hospital with change in mental status, aphasia, initial CT scan did not reveal acute abnormality, stroke alert was called, evaluated by teleneurology. Patient was diagnosed with possible UTI, started on empiric antibiotics. Had intermittent fevers. Also tested positive for COVID-19, hence infectious diseases was consulted. He has been started on remdesivir and steroids. Chest x-ray showed bilateral airspace opacities. Awake, no distress. Poor historian. Has restraints on. Review of Systems: Poor historian Past History Past Medical History: hypertension, hyperlipidemia, other (Dementia) Past Surgical History: No surgical history Social history: no significant social history Family history: hypertension Medications and Allergies Allergies Allergy/AdvReac Type Severity Reaction Status Date / Time No Known Allergies Allergy Verified 02/25/22 17:59 Home Medications Medication Instructions Recorded Confirmed Last Taken Type AtorvaSTATin [Lipitor] 40 mg PO QHS #30 tablet 03/02/22 Unknown Rx Clopidogrel [Plavix] 75 mg PO QDAY #30 tablet 03/02/22 Unknown Rx Metoprolol [Lopressor TAB] 25 mg PO BID #60 tab 03/02/22 Unknown Rx amLODIPine 5 mg PO DAILY #30 tab 03/02/22 Unknown Rx levoFLOXacin [Levaquin TAB] 500 mg PO QDAY #3 tablet 03/02/22 Unknown Rx lisinopriL [Zestril TAB] 10 mg PO QDAY #30 tab 03/02/22 Unknown Rx Active Meds: Active Medications Acetaminophen (Acetaminophen 325 Mg Tab) 650 mg PO Q4H PRN PRN Reason: Pain MILD(1-3)/Fever >100.5/SAMUEL Last Admin: 03/01/22 03:43 Dose: 650 mg Acetaminophen (Acetaminophen 650 Mg Rect Supp) 650 mg IA Q4H PRN PRN Reason: Pain, Mild (1-3) Last Admin: 02/26/22 22:40 Dose: 650 mg Albuterol (Albuterol 2.5 Mg/3 Ml Nebu) 2.5 mg IH Q3HRT PRN PRN Reason: Shortness Of Breath Last Admin: 03/03/22 11:10 Dose: 2.5 mg Amlodipine Besylate (Amlodipine 5 Mg Tab) 5 mg PO DAILY [facility] Last Admin: 03/04/22 11:41 Dose: 5 mg Atorvastatin Calcium (Atorvastatin 40 Mg Tab) 40 mg PO QHS [facility] Last Admin: 03/03/22 21:12 Dose: 40 mg Clopidogrel Bisulfate (Clopidogrel 75 Mg Tab) 75 mg PO QDAY [facility] Last Admin: 03/04/22 11:41 Dose: 75 mg Dexamethasone (Dexamethasone 4 Mg/Ml Vial) 6 mg IV DAILY [facility] Stop: 03/12/22 10:01 Famotidine (Famotidine 20 Mg Tab) 20 mg PO BID [facility] Last Admin: 03/04/22 11:41 Dose: 20 mg Heparin Sodium (Porcine) (Heparin 5,000 Unit/1 Ml Vial) 5,000 unit SUB-Q Q12HR [facility] Last Admin: 03/04/22 11:40 Dose: 5,000 unit Ceftriaxone Sodium (Rocephin/Ns 1 Gm/50 Ml) 1 gm in 50 mls @ 100 mls/hr IV Q24H [facility]; Protocol Stop: 03/05/22 09:29 Last Admin: 03/04/22 11:40 Dose: 100 mls/hr Remdesivir 100 mg/ Sodium (Chloride) 250 mls @ 500 mls/hr IV Q24HR@1400 [facility] Stop: 03/08/22 14:29 Labetalol HCl (Labetalol 20 Mg/4 Ml Inj) 10 mg IV Q5MIN PRN PRN Reason: to maintain SBP < 180 Lisinopril (Lisinopril 10 Mg Tab) 10 mg PO QDAY [facility] Last Admin: 03/04/22 11:42 Dose: 10 mg Metoprolol Tartrate (Metoprolol Tartrate 25 Mg Tab) 25 mg PO BID@0800,1700 [facility] Last Admin: 03/04/22 08:55 Dose: 25 mg Morphine Sulfate (Morphine 2 Mg/1 Ml Inj) 2 mg IV Q4H PRN PRN Reason: Pain, Moderate (4-6) Morphine Sulfate (Morphine 4 Mg/1 Ml Inj) 4 mg IV Q4H PRN PRN Reason: Pain , Severe (7-10) Ondansetron HCl (Ondansetron 4 Mg/2 Ml Inj) 4 mg IV Q8H PRN PRN Reason: Nausea And Vomiting Sodium Chloride (Sodium Chloride 0.9% 10 Ml Flush Syringe) 10 ml IV BID [facility] Last Admin: 03/04/22 11:42 Dose: 10 ml Sodium Chloride (Sodium Chloride 0.9% 10 Ml Flush Syringe) 10 ml IV PRN PRN PRN Reason: LINE FLUSH Sodium Chloride (Sodium Chloride 0.9% 50 Ml Ivpb) 50 ml IV Q24HR@1400 [facility] Stop: 03/08/22 14:01 Last Admin: 03/04/22 12:47 Dose: 50 ml Physical Examination - Physical Exam Narrative exam: Physical Exam: Constitutional: Awake. No acute distress Head, Ears, Nose: Normocephalic, atraumatic. External ears, nose normal Eyes: Conjunctivae/corneas clear. No icterus. No ptosis. Neck: Supple, no meningeal signs Cardiovascular: S1, S2 + Respiratory: Good air entry, clear to auscultation bilaterally GI: Soft, non-tender; bowel sounds normal. No peritoneal signs Musculoskeletal: No pedal edema, no cyanosis. Skin: No rash or abscess Hem/Lymphatic: No palpable cervical or supraclavicular nodes. No lymphangitis Psych: Calm Neurological: Awake, alert - Constitutional Vitals: Vital Signs Temp Pulse Resp BP Pulse Ox 98.9 F 65 22 117/66 95 03/04/22 11:17 03/04/22 11:42 03/04/22 11:17 03/04/22 11:42 03/04/22 11:17 Temperature -Last 24 Hours Temperature 98.9 F Temperature 98.2 F Temperature 98.5 F Temperature 98.2 F Temperature 98.0 F Results - Labs CBC & Chem 7: 03/01/22 04:10 03/01/22 04:10 Labs: Abnormal lab results 03/03/22 03/03/22 03/03/22 Range/Units 10:15 18:14 18:14 D-Dimer 756.34 H (0-234) ng/mlDDU POC Glucose (70-105) mg/dL C-Reactive Protein 6.20 H (0.00-1.30) mg/dL Coronavirus (PCR) Positive A (Negative) 03/03/22 03/04/22 03/04/22 Range/Units 21:11 06:27 11:14 D-Dimer (0-234) ng/mlDDU POC Glucose 154 H 145 H 129 H (70-105) mg/dL C-Reactive Protein (0.00-1.30) mg/dL Coronavirus (PCR) (Negative) - Imaging and Cardiology Chest x-ray: report reviewed, image reviewed (faint bilateral airspace opacities) Assessment and Plan Cultures: SARS CoV2 PCR: Positive 02/26/2022 urine culture: E. coli A/P: 71-year-old male with hypertension, hyperlipidemia, dementia was brought to the hospital with change in mental status: #COVID-19: PCR positive. Chest x-ray showed faint bilateral airspace opacities. D-dimer 756. Procalcitonin on admission <0.05, CRP 6.2 #Acute hypoxic respiratory failure: #Sepsis, E. coli UTI #Acute encephalopathy: CT head unremarkable. Does have baseline dementia. Recs: -IV/PO Dexamethasone x 10 days, dose decreased to 6 mg daily -IV remdesivir x 5 days -Complete remainder of ceftriaxone to complete total 7 days -prophylactic anticoagulation based on d-dimer per hospital protocol -trend ferritin, d-dimer, CRP every 2-3 days Arnold Strong MD, FACP, [facility] O: [phone] F: [phone] C: [phone]
[2022-03-04 16:07] LABS: Alanine Aminotransferase 24 units/L (7-56); Albumin 3.6 g/dL (3.9-5); BUN/Creatinine Ratio 16; Blood Urea Nitrogen 13 mg/dL (9-20); Calcium 9.4 mg/dL (8.4-10.2); Hemolysis Index 0
[2022-03-05 07:48] LABS: Hematocrit 39.7 % (35.5-45.6); Hemoglobin 13.1 gm/dl (11.8-15.2); Mean Corpuscular HGB Conc 33 % (32-34); Mean Corpuscular Volume 76 fl (84-94); Platelet Count 315 K/mm3 (140-440); Red Blood Count 5.23 M/mm3 (3.65-5.03); Red Cell Distribution Width 17.3 % (13.2-15.2)
[2022-03-05 08:09] LABS: Alanine Aminotransferase 24 units/L (7-56); Albumin 3.9 g/dL (3.9-5); BUN/Creatinine Ratio 18; Blood Urea Nitrogen 18 mg/dL (9-20); Calcium 9.3 mg/dL (8.4-10.2); Hemolysis Index 2
[2022-03-05] MEDS: cefTRIAXone/NS 1 GM/50 ML 1 GM/50 ML BAG IV SCH (08:09)
--- NOTE | 2022-03-05 08:19 | Progress Note ---
Assessment and Plan Cultures: SARS CoV2 PCR: Positive 02/26/2022 urine culture: E. coli A/P: 71-year-old male with hypertension, hyperlipidemia, dementia was brought to the hospital with change in mental status: #COVID-19: PCR positive. Chest x-ray showed faint bilateral airspace opacities. D-dimer 756. Procalcitonin on admission <0.05, CRP 6.2. #Acute hypoxic respiratory failure: on NC. #Sepsis, E. coli UTI: completed ceftriaxone. #Acute encephalopathy: CT head unremarkable. Does have baseline dementia. Syphilis IgG reactive, RPR nonreactive. Unlikely neurosyphilis. FTA-ABS pending. Recs: -IV/PO Dexamethasone x 10 days -IV remdesivir x 5 days -completed 7 days of Ceftriaxone today -prophylactic anticoagulation based on d-dimer per hospital protocol -trend ferritin, d-dimer, CRP every 2-3 days -f/u FTA-ABS -Monitor leukocytosis, though likely related to steroids Arnold Strong MD, FACP, [facility] O: [phone] F: [phone] C: [phone] Subjective Date of service: 03/05/22 Interval history: Afebrile. Removes his oxygen at times. Denies any complaints, currently on NC. Objective - Exam Narrative Exam: Physical Exam: Constitutional: Awake. No acute distress Head, Ears, Nose: Normocephalic, atraumatic. External ears, nose normal Eyes: Conjunctivae/corneas clear. No icterus. No ptosis. Neck: Supple, no meningeal signs Cardiovascular: S1, S2 + Respiratory: Good air entry, clear to auscultation bilaterally GI: Soft, non-tender; bowel sounds normal. No peritoneal signs Musculoskeletal: No pedal edema, no cyanosis. Skin: No rash or abscess Hem/Lymphatic: No palpable cervical or supraclavicular nodes. No lymphangitis Psych: Calm Neurological: Awake, alert - Constitutional Vitals: Vital Signs Temp Pulse Resp BP Pulse Ox 98.5 F 82 22 110/68 92 03/05/22 05:43 03/05/22 05:43 03/05/22 05:43 03/05/22 05:43 03/05/22 05:43 Temperature -Last 24 Hours Temperature 98.5 F Temperature 98.3 F Temperature 98.2 F Temperature 98.9 F - Labs CBC & Chem 7: 03/05/22 06:57 03/05/22 06:57 Labs: Abnormal lab results 03/04/22 03/04/22 03/04/22 Range/Units 11:14 15:26 16:10 WBC (4.5-11.0) K/mm3 RBC (3.65-5.03) M/mm3 MCV (84-94) fl MCH (28-32) pg RDW (13.2-15.2) % Carbon Dioxide (22-30) mmol/L Glucose 123 H (75-100) mg/dL POC Glucose 129 H 126 H (70-105) mg/dL Albumin 3.6 L (3.9-5) g/dL 03/05/22 03/05/22 03/05/22 Range/Units 02:39 06:57 06:57 WBC 20.5 H (4.5-11.0) K/mm3 RBC 5.23 H (3.65-5.03) M/mm3 MCV 76 L (84-94) fl MCH 25 L (28-32) pg RDW 17.3 H (13.2-15.2) % Carbon Dioxide 31 H (22-30) mmol/L Glucose (75-100) mg/dL POC Glucose 118 H (70-105) mg/dL Albumin (3.9-5) g/dL
[2022-03-05 08:51] LABS: Basophils % (Manual) 0 % (0.0-1.8); Eosinophils % (Manual) 0 % (0.0-4.3); Total Cells Counted 100
[2022-03-05 08:52] LABS: Hypochromasia 1+; Platelet Estimate Consistent w Auto; Tear Drop Cells 1+
[2022-03-05] MEDS: amLODIPine 5 MG TAB PO SCH (10:22)
[2022-03-05] MEDS: CLOPIDOGREL 75 MG TAB PO SCH (10:22)
[2022-03-05] MEDS: LISINOPRIL 10 MG TAB PO SCH (10:23)
[2022-03-05] MEDS: HEPARIN 5,000 UNIT/1 ML VIAL SUB-Q SCH ×2 (10:23→22:04)
[2022-03-05] MEDS: FAMOTIDINE 20 MG TAB PO SCH ×2 (10:23→22:04)
[2022-03-05] MEDS: METOPROLOL TARTRATE 25 MG TAB PO SCH ×2 (10:26→19:19)
[2022-03-05] MEDS: CHOLECALCIFEROL (VIT D3) 5,000 UNIT TAB PO SCH (14:16)
[2022-03-05] MEDS: ZINC SULFATE 220 MG CAP PO SCH ×2 (14:16→22:01)
[2022-03-05] MEDS: ASCORBIC ACID 500 MG TAB PO SCH ×2 (14:16→22:00)
[2022-03-05] MEDS: SODIUM CHLORIDE 0.9% 50 ML IVPB IV SCH (14:34)
[2022-03-05] MEDS: REMDESIVIR 100 MG in SODIUM CHLORIDE 0.9% 250ML 250 ML IV SCH (14:34)
[2022-03-05] MEDS: MORPHINE 2 MG/1 ML INJ IV PRN (15:17)
--- NOTE | 2022-03-05 16:23 | Progress Note ---
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 On arrival, the patient was found to be hemodynamically stable. There was concern for acute ischemic CVA, and the patient underwent CT head noncontrast that was found to be unremarkable. On presentation, the tele- neurology was consulted, and they deemed that the patient was outside of the window to receive tPA. The patient was admitted for management of presumed acute ischemic CVA. Patient had labs are remarkable for potassium 3.3, creatinine 1.4, and urinalysis revealing WBCs 33 with 1+ bacteria. Patient was unable to obtain MRI brain due to agitation despite sedation. Given further physical examination, it was deemed that there was low clinical suspicion of the patient had an acute ischemic CVA but was instead having acute metabolic encephalopathy in the setting of sepsis secondary to UTI. Patient was treated with IV antibiotics. He was planned for discharge but Screening COVID test become positive. He is being managed for COVID-19 pneumonia. Daily clinical course: 03/04/22; patient was tested positive for COVID-19 on March 03. Due to advanced age and multiple comorbidities and risk for worsening symptoms patient initiated on dexamethasone and will start on remdesivir daily. We will also consult ID for further recommendation. Continue to follow clinically with supportive care and follow inflammatory markers. 03/05/22: Day 2 of remdesivir. Continue dexamethasone. Follow inflammatory markers. Patient on 2 L nasal cannula O2. Continue antibiotics for UTI. Assessment and plan: #Sepsis 2/2 E. coli UTI with hematuria, POA #Leukocytosisimproving WBC 17.9--> 14.7--> 13.8--> 13.4 Urinalysis revealing large blood, WBC 32, 1+ bacteria. Unremarkable blood culture. Continue Rocephin 1 g daily (started 02/27/2022 and antibiotic course will complete on 03/05/2022). Patient became febrile to 100.7 on 03/01/2022. Monitoring for an additional 24 hours to ensure the patient does not become febrile again. #COVID-19 pneumonia Positive coronavirus PCR (03/03/2022) Starting IV dexamethasone 8 mg daily x7 doses. Ordering ferritin, D-dimer, CRP. Infectious disease consulted; pending recs Starting droplet and airborne precautions. Continue to monitor -Initiated on remdesivir for total 5 days due to possibility of worsening symptoms and decompensation due to advanced age and multiple comorbidities on 03/04/22 #Possible acute ischemic CVAruled out #Acute metabolic encephalopathy patient on restrain Lower clinical suspicion after patient's daughter described him as being at his baseline. Higher clinical suspicion for encephalopathy secondary to UTI. Unremarkable CT head noncontrast Discontinued MRI brain due to low clinical suspicion + patient being unable to remain still for imaging. Hemoglobin A1c 7.0. Lipid panel: Triglycerides 198, cholesterol 182, LDL 130, HDL 22. Neurology consulted; appreciate recs. Physical therapy and Occupational Therapy consulted. #Acute hypoxic respiratory failure - etiology: Likely due to COVID-19 pneumonia - baseline oxygen requirements: Room air - supplemental oxygen: 2 L nasal cannula - Continue protocol: continue pulse oximetry, wean oxygen as tolerated, ordered incentive spirometry and educated patient on how to use it and its importance. - continue to monitor #Hypokalemiaresolved Potassium 3.3--> 3.2 Continue to replete. Repeat with BMP in the morning. #Hyperlipidemia #Hypertension - home medications: Amlodipine 5 mg daily, lisinopril 10 mg daily, atorvastatin 40 mg daily - current medications: Amlodipine 5 mg daily, lisinopril 10 mg daily, atorvastatin 40 mg daily - SBP goal <160 and DBP goal <90 while inpatient - continue to monitor #Non-insulin dependent type II diabetes mellitus - hemoglobin A1c: 7.0 - home regimen: None - current regimen: Moderate SSI - blood glucose goal 140-180 while inpatient - continue to monitor #Hypocalcemia Calcium 8.1 Replete. Continue to monitor. #Dementia Continue orienting patient, turning off visual stimuli at bedtime, and keeping blinds/curtains open during the day. #Obesity #Weight loss counseling #Exercise counseling - BMI 31.7 - Counseled patient on the importance of weight loss, incorporating exercise, and dietary changes (lean meats, fresh fruits and vegetables, and water intake). Patient expresses understanding. - Time: +15 min #Advanced care planning -Disease education conducted, care plan discussed, diagnoses discussed, prognosis discussed, and patient acknowledges understanding with care plan -Time: +30 min #Discharge planning - Patient is pending resolution of acute hypoxic respiratory failure and completion of remdesivir. - Case management has been made aware. Subjective Date of service: 03/05/22 Interval history: Patient seen and examined. Medical records and medication list reviewed. No acute event overnight noted by the RN. Patient remains confused, has soft mittens on both hands Discussed plan of care at bedside with patient's RN Objective - Exam Narrative Exam: General appearance: Present: no acute distress, well-nourished, other (Nonverbal at baseline) - EENT Eyes: Present: PERRL, EOM intact ENT: hearing intact, clear oral mucosa, dentition normal - Neck Neck: Present: supple, normal ROM - Respiratory Respiratory effort: normal Respiratory: bilateral: diminished (2 L nasal cannula) - Cardiovascular Rhythm: regular Heart Sounds: Present: S1 & S2 - Extremities Extremities: no ischemia, pulses intact, pulses symmetrical, No edema, normal temperature, normal color Peripheral Pulses: within normal limits - Abdominal General gastrointestinal: soft, non-tender, non-distended, normal bowel sounds - Integumentary Integumentary: Present: clear, warm, dry - Psychiatric Psychiatric: appropriate mood/affect, cooperative - Neurologic Neurologic: focal deficits (Left-sided weakness) - Constitutional Vitals: Vital Signs - 12hr 03/05/22 03/05/22 03/05/22 05:43 08:23 09:56 Temperature 98.5 F Pulse Rate 82 Respiratory 22 22 Rate Blood Pressure Blood Pressure 110/68 [Left] O2 Sat by Pulse 92 94 94 Oximetry 03/05/22 03/05/22 11:43 15:17 Temperature 98.4 F Pulse Rate 72 Respiratory 22 20 Rate Blood Pressure 111/89 Blood Pressure [Left] O2 Sat by Pulse 97 Oximetry - Labs CBC & Chem 7: 03/05/22 06:57 03/07/22 06:42 Labs: Abnormal lab results 03/05/22 03/05/22 03/05/22 Range/Units 02:39 06:57 06:57 WBC 20.5 H (4.5-11.0) K/mm3 RBC 5.23 H (3.65-5.03) M/mm3 MCV 76 L (84-94) fl MCH 25 L (28-32) pg RDW 17.3 H (13.2-15.2) % Seg Neutrophils # Man 13.9 H (1.8-7.7) K/mm3 Lymphocytes # (Manual) 5.7 H (1.2-5.4) K/mm3 Carbon Dioxide 31 H (22-30) mmol/L POC Glucose 118 H (70-105) mg/dL 03/05/22 Range/Units 11:22 WBC (4.5-11.0) K/mm3 RBC (3.65-5.03) M/mm3 MCV (84-94) fl MCH (28-32) pg RDW (13.2-15.2) % Seg Neutrophils # Man (1.8-7.7) K/mm3 Lymphocytes # (Manual) (1.2-5.4) K/mm3 Carbon Dioxide (22-30) mmol/L POC Glucose 125 H (70-105) mg/dL HEART Score - HEART Score Troponin: Troponin T < 0.010 ng/mL (0.00-0.029) 02/25/22 18:33
[2022-03-05] MEDS ORDERED: LORazepam 0.5 MG TAB PO ONE (20:15)
[2022-03-05] MEDS: MORPHINE 4 MG/1 ML INJ IV PRN (23:28)
[2022-03-06 07:46] LABS: Alanine Aminotransferase 24 units/L (7-56); Albumin 3.9 g/dL (3.9-5); BUN/Creatinine Ratio 21; Blood Urea Nitrogen 19 mg/dL (9-20); Calcium 9.1 mg/dL (8.4-10.2); Hemolysis Index 2
[2022-03-06] MEDS: ASCORBIC ACID 500 MG TAB PO SCH ×2 (09:09→21:56)
[2022-03-06] MEDS: FAMOTIDINE 20 MG TAB PO SCH ×2 (09:09→21:56)
[2022-03-06] MEDS: amLODIPine 5 MG TAB PO SCH (09:09)
[2022-03-06] MEDS: ZINC SULFATE 220 MG CAP PO SCH ×2 (09:09→21:56)
[2022-03-06] MEDS: HEPARIN 5,000 UNIT/1 ML VIAL SUB-Q SCH ×2 (09:10→21:55)
[2022-03-06] MEDS: METOPROLOL TARTRATE 25 MG TAB PO SCH ×3 (09:10→18:50)
[2022-03-06] MEDS: CLOPIDOGREL 75 MG TAB PO SCH (09:10)
[2022-03-06] MEDS: LISINOPRIL 10 MG TAB PO SCH (09:10)
[2022-03-06] MEDS: DEXAMETHASONE 4 MG TAB PO SCH (09:10)
[2022-03-06] MEDS: CHOLECALCIFEROL (VIT D3) 5,000 UNIT TAB PO SCH (09:11)
[2022-03-06] MEDS: MORPHINE 2 MG/1 ML INJ IV PRN ×2 (09:22→15:29)
--- NOTE | 2022-03-06 13:22 | Progress Note ---
Assessment and Plan Cultures: SARS CoV2 PCR: Positive 02/26/2022 urine culture: E. coli A/P: 71-year-old male with hypertension, hyperlipidemia, dementia was brought to the hospital with change in mental status: #COVID-19: PCR positive. Chest x-ray showed faint bilateral airspace opacities. D-dimer 756. Procalcitonin on admission <0.05, CRP 6.2. #Acute hypoxic respiratory failure: on NC. #Sepsis, E. coli UTI: completed ceftriaxone. #Acute encephalopathy: CT head unremarkable. Does have baseline dementia. Syphilis IgG reactive, RPR nonreactive. Unlikely neurosyphilis. FTA-ABS pending. Recs: -IV/PO Dexamethasone x 10 days -IV remdesivir x 5 days -prophylactic anticoagulation based on d-dimer per hospital protocol -trend ferritin, d-dimer, CRP every 2-3 days -f/u FTA-ABS -WBC high, likely related to steroids. CRP and procalcitonin ordered for SHAHNAZ Strong MD, FACP, [facility] O: [phone] F: [phone] C: [phone] Subjective Date of service: 03/06/22 Interval history: Afebrile. [facility] oxygen by [facility]. Objective - Exam Narrative Exam: Physical Exam: deferred to minimize risk of transmission - Constitutional Vitals: Vital Signs Temp Pulse Resp BP Pulse Ox 98.5 F 51 L 18 124/82 97 03/06/22 05:00 03/06/22 12:00 03/06/22 08:00 03/06/22 05:00 03/06/22 10:00 Temperature -Last 24 Hours Temperature 98.5 F Temperature 98.5 F Temperature 98.2 F - Labs CBC & Chem 7: 03/05/22 06:57 03/06/22 06:50 Labs: Abnormal lab results 03/05/22 03/05/22 03/06/22 Range/Units 17:19 23:18 06:28 POC Glucose 158 H 133 H 107 H (70-105) mg/dL 03/06/22 Range/Units 11:22 POC Glucose 116 H (70-105) mg/dL
[2022-03-06] MEDS: REMDESIVIR 100 MG in SODIUM CHLORIDE 0.9% 250ML 250 ML IV SCH (14:36)
[2022-03-06] MEDS: SODIUM CHLORIDE 0.9% 50 ML IVPB IV SCH (15:29)
--- NOTE | 2022-03-06 16:17 | Progress Note ---
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 On arrival, the patient was found to be hemodynamically stable. There was concern for acute ischemic CVA, and the patient underwent CT head noncontrast that was found to be unremarkable. On presentation, the tele- neurology was consulted, and they deemed that the patient was outside of the window to receive tPA. The patient was admitted for management of presumed acute ischemic CVA. Patient had labs are remarkable for potassium 3.3, creatinine 1.4, and urinalysis revealing WBCs 33 with 1+ bacteria. Patient was unable to obtain MRI brain due to agitation despite sedation. Given further physical examination, it was deemed that there was low clinical suspicion of the patient had an acute ischemic CVA but was instead having acute metabolic encephalopathy in the setting of sepsis secondary to UTI. Patient was treated with IV antibiotics. He was planned for discharge but Screening COVID test become positive. He is being managed for COVID-19 pneumonia. Daily clinical course: 03/04/22; patient was tested positive for COVID-19 on March 03. Due to advanced age and multiple comorbidities and risk for worsening symptoms patient initiated on dexamethasone and will start on remdesivir daily. We will also consult ID for further recommendation. Continue to follow clinically with supportive care and follow inflammatory markers. 03/05/22: Day 2 of remdesivir. Continue dexamethasone. Follow inflammatory markers. Patient on 2 L nasal cannula O2. Continue antibiotics for UTI. 03/06/22: patient very agitated today, ordered restraint, as needed haldol and ativan. day 3 of remdesivir. Assessment and plan: #Sepsis 2/2 E. coli UTI with hematuria, POA #Leukocytosisimproving WBC 17.9--> 14.7--> 13.8--> 13.4 Urinalysis revealing large blood, WBC 32, 1+ bacteria. Unremarkable blood culture. Continue Rocephin 1 g daily (started 02/27/2022 and antibiotic course will complete on 03/05/2022). Patient became febrile to 100.7 on 03/01/2022. Monitoring for an additional 24 hours to ensure the patient does not become febrile again. #COVID-19 pneumonia Positive coronavirus PCR (03/03/2022) Starting IV dexamethasone 8 mg daily x7 doses. Ordering ferritin, D-dimer, CRP. Infectious disease consulted; pending recs Starting droplet and airborne precautions. Continue to monitor -Initiated on remdesivir for total 5 days due to possibility of worsening symptoms and decompensation due to advanced age and multiple comorbidities on 03/04/22 #Possible acute ischemic CVAruled out #Acute metabolic encephalopathy patient on restrain Lower clinical suspicion after patient's daughter described him as being at his baseline. Higher clinical suspicion for encephalopathy secondary to UTI. Unremarkable CT head noncontrast Discontinued MRI brain due to low clinical suspicion + patient being unable to remain still for imaging. Hemoglobin A1c 7.0. Lipid panel: Triglycerides 198, cholesterol 182, LDL 130, HDL 22. Neurology consulted; appreciate recs. Physical therapy and Occupational Therapy consulted. #Acute hypoxic respiratory failure - etiology: Likely due to COVID-19 pneumonia - baseline oxygen requirements: Room air - supplemental oxygen: 2 L nasal cannula - Continue protocol: continue pulse oximetry, wean oxygen as tolerated, ordered incentive spirometry and educated patient on how to use it and its importance. - continue to monitor #Hypokalemiaresolved Potassium 3.3--> 3.2 Continue to replete. Repeat with BMP in the morning. #Hyperlipidemia #Hypertension - home medications: Amlodipine 5 mg daily, lisinopril 10 mg daily, atorvastatin 40 mg daily - current medications: Amlodipine 5 mg daily, lisinopril 10 mg daily, atorvastatin 40 mg daily - SBP goal <160 and DBP goal <90 while inpatient - continue to monitor #Non-insulin dependent type II diabetes mellitus - hemoglobin A1c: 7.0 - home regimen: None - current regimen: Moderate SSI - blood glucose goal 140-180 while inpatient - continue to monitor #Hypocalcemia Calcium 8.1 Replete. Continue to monitor. #Dementia Continue orienting patient, turning off visual stimuli at bedtime, and keeping blinds/curtains open during the day. #Obesity #Weight loss counseling #Exercise counseling - BMI 31.7 - Counseled patient on the importance of weight loss, incorporating exercise, and dietary changes (lean meats, fresh fruits and vegetables, and water intake). Patient expresses understanding. - Time: +15 min #Advanced care planning -Disease education conducted, care plan discussed, diagnoses discussed, prognosis discussed, and patient acknowledges understanding with care plan -Time: +30 min #Discharge planning - Patient is pending resolution of acute hypoxic respiratory failure and completion of remdesivir. - Case management has been made aware. Subjective Date of service: 03/06/22 Interval history: Patient seen and examined. Medical records and medication list reviewed. Patient is very agitated today Patient remains confused, ordered for restraint Discussed plan of care at bedside with patient's RN Objective - Exam Narrative Exam: General appearance: Present: Very much agitated., well-nourished, other (Nonverbal at baseline) - EENT Eyes: Present: PERRL, EOM intact ENT: hearing intact, clear oral mucosa, dentition normal - Neck Neck: Present: supple, normal ROM - Respiratory Respiratory effort: normal Respiratory: bilateral: diminished (2 L nasal cannula) - Cardiovascular Rhythm: regular Heart Sounds: Present: S1 & S2 - Extremities Extremities: no ischemia, pulses intact, pulses symmetrical, No edema, normal temperature, normal color Peripheral Pulses: within normal limits - Abdominal General gastrointestinal: soft, non-tender, non-distended, normal bowel sounds - Integumentary Integumentary: Present: clear, warm, dry - Psychiatric Psychiatric: not cooperative - Neurologic Neurologic: focal deficits (Left-sided weakness) - Constitutional Vitals: Vital Signs - 12hr 03/06/22 03/06/22 03/06/22 05:00 08:00 09:02 Temperature 98.5 F Pulse Rate 62 Respiratory 20 18 Rate Blood Pressure 145/75 Blood Pressure 124/82 [Left] O2 Sat by Pulse 95 95 Oximetry 03/06/22 03/06/22 03/06/22 10:00 11:25 12:00 Temperature 97.2 F L Pulse Rate 61 51 L Respiratory 22 Rate Blood Pressure 133/74 Blood Pressure [Left] O2 Sat by Pulse 97 100 Oximetry 03/06/22 14:26 Temperature Pulse Rate Respiratory Rate Blood Pressure 114/71 Blood Pressure [Left] O2 Sat by Pulse Oximetry - Labs CBC & Chem 7: 03/05/22 06:57 03/07/22 06:42 Labs: Abnormal lab results 03/05/22 03/05/22 03/06/22 Range/Units 17:19 23:18 06:28 POC Glucose 158 H 133 H 107 H (70-105) mg/dL 03/06/22 Range/Units 11:22 POC Glucose 116 H (70-105) mg/dL HEART Score - HEART Score Troponin: Troponin T < 0.010 ng/mL (0.00-0.029) 02/25/22 18:33
[2022-03-06] MEDS: HALOPERIDOL LACTATE 5 MG/1 ML INJ IM PRN (16:25)
[2022-03-06] MEDS ORDERED: LORazepam 2 MG/ML VIAL IM STA (17:15)
[2022-03-06] MEDS ORDERED: LORazepam 2 MG/ML VIAL IV PRN (17:16)
[2022-03-07] MEDS: HALOPERIDOL LACTATE 5 MG/1 ML INJ IM PRN ×4 (00:14→23:37)
[2022-03-07 07:52] LABS: Alanine Aminotransferase 24 units/L (7-56); Albumin 3.5 g/dL (3.9-5); BUN/Creatinine Ratio 20; Blood Urea Nitrogen 16 mg/dL (9-20); Hemolysis Index 7
[2022-03-07] MEDS: METOPROLOL TARTRATE 25 MG TAB PO SCH ×2 (08:34→16:34)
[2022-03-07] MEDS: amLODIPine 5 MG TAB PO SCH (09:27)
[2022-03-07] MEDS: DEXAMETHASONE 4 MG TAB PO SCH (09:27)
[2022-03-07] MEDS: ZINC SULFATE 220 MG CAP PO SCH ×2 (09:28→22:10)
[2022-03-07] MEDS: CHOLECALCIFEROL (VIT D3) 5,000 UNIT TAB PO SCH (09:28)
[2022-03-07] MEDS: LISINOPRIL 10 MG TAB PO SCH (09:28)
[2022-03-07] MEDS: ASCORBIC ACID 500 MG TAB PO SCH ×2 (09:28→22:09)
[2022-03-07] MEDS: CLOPIDOGREL 75 MG TAB PO SCH (09:28)
[2022-03-07] MEDS: FAMOTIDINE 20 MG TAB PO SCH ×2 (09:28→22:09)
[2022-03-07] MEDS: HEPARIN 5,000 UNIT/1 ML VIAL SUB-Q SCH ×2 (09:29→22:10)
--- NOTE | 2022-03-07 10:57 | Progress Note ---
Assessment and Plan Cultures: SARS CoV2 PCR: Positive 02/26/2022 urine culture: E. coli A/P: 71-year-old male with hypertension, hyperlipidemia, dementia was brought to the hospital with change in mental status: #COVID-19: PCR positive. Chest x-ray showed faint bilateral airspace opacities. D-dimer 756. Procalcitonin on admission <0.05, CRP 6.2. CRP improved to 0.9, procalcitonin 0.1 #Acute hypoxic respiratory failure: on NC. #Sepsis, E. coli UTI: completed ceftriaxone. #Acute encephalopathy: CT head unremarkable. Does have baseline dementia. Syphilis IgG reactive, RPR nonreactive. Unlikely neurosyphilis. FTA-ABS pending. Recs: -complete IV/PO Dexamethasone x 10 days -complete IV remdesivir x 5 days -prophylactic anticoagulation based on d-dimer per hospital protocol -f/u FTA-ABS -WBC high, likely related to steroids. CRP improved to 0.9, procalcitonin 0.1 Arnold Strong MD, FACP, [facility] ([facility]) O: [phone] F: [phone] C: [phone] Subjective Date of service: 03/07/22 Interval history: Afebrile. Remains on oxygen by [place]. Restless in bed, has restraints. Poor historian. Objective - Exam Narrative Exam: Physical Exam: Constitutional: Awake, alert, restless, trying to get out of bed Head, Ears, Nose: Normocephalic, atraumatic. External ears, nose normal Eyes: Conjunctivae/corneas clear. No icterus. No ptosis. Neck: Supple, no meningeal signs Cardiovascular: S1, S2 + Respiratory: Good air entry, clear to auscultation bilaterally GI: Soft, non-tender; bowel sounds normal. No peritoneal signs Musculoskeletal: No pedal edema, no cyanosis. Skin: No rash or abscess Hem/Lymphatic: No palpable cervical or supraclavicular nodes. No lymphangitis Psych: Restless, trying to get out of bed, has restraints Neurological: Awake, confused, restless in bed - Constitutional Vitals: Vital Signs Temp Pulse Resp BP Pulse Ox 97.7 F 110 H 22 110/76 92 03/07/22 05:02 03/07/22 09:27 03/07/22 10:46 03/07/22 08:41 03/07/22 10:46 Temperature -Last 24 Hours Temperature 97.7 F Temperature 97.2 F Temperature 97.1 F Temperature 97.2 F - Labs CBC & Chem 7: 03/05/22 06:57 03/07/22 06:42 Labs: Abnormal lab results 03/06/22 03/06/22 03/06/22 Range/Units 11:22 12:38 12:38 D-Dimer 823.15 H (0-234) ng/mlDDU Potassium (3.6-5.0) mmol/L POC Glucose 116 H (70-105) mg/dL Lactate Dehydrogenase 368 H (91-180) units/L Albumin (3.9-5) g/dL 03/06/22 03/06/22 03/07/22 Range/Units 17:59 21:49 06:42 D-Dimer (0-234) ng/mlDDU Potassium 3.5 L (3.6-5.0) mmol/L POC Glucose 138 H 107 H (70-105) mg/dL Lactate Dehydrogenase (91-180) units/L Albumin 3.5 L (3.9-5) g/dL
[2022-03-07] MEDS: REMDESIVIR 100 MG in SODIUM CHLORIDE 0.9% 250ML 250 ML IV SCH (13:35)
[2022-03-07] MEDS: SODIUM CHLORIDE 0.9% 50 ML IVPB IV SCH (13:41)
--- NOTE | 2022-03-07 14:58 | Progress Note ---
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 On arrival, the patient was found to be hemodynamically stable. There was concern for acute ischemic CVA, and the patient underwent CT head noncontrast that was found to be unremarkable. On presentation, the tele- neurology was consulted, and they deemed that the patient was outside of the window to receive tPA. The patient was admitted for management of presumed acute ischemic CVA. Patient had labs are remarkable for potassium 3.3, creatinine 1.4, and urinalysis revealing WBCs 33 with 1+ bacteria. Patient was unable to obtain MRI brain due to agitation despite sedation. Given further physical examination, it was deemed that there was low clinical suspicion of the patient had an acute ischemic CVA but was instead having acute metabolic encephalopathy in the setting of sepsis secondary to UTI. Patient was treated with IV antibiotics. He was planned for discharge but Screening COVID test become positive. He is being managed for COVID-19 pneumonia. Daily clinical course: 03/04/22; patient was tested positive for COVID-19 on March 03. Due to advanced age and multiple comorbidities and risk for worsening symptoms patient initiated on dexamethasone and will start on remdesivir daily. We will also consult ID for further recommendation. Continue to follow clinically with supportive care and follow inflammatory markers. 03/05/22: Day 2 of remdesivir. Continue dexamethasone. Follow inflammatory markers. Patient on 2 L nasal cannula O2. Continue antibiotics for UTI. 03/06/22: patient very agitated today, ordered restraint, as needed haldol and ativan. day 3 of remdesivir. 03/07/22: day 4 of remdesivir, pt remains agitated, remains restraint, discussed with daughter, patient will go home tomorrow with family supervision after completion of remdesivir. Assessment and plan: #Sepsis 2/2 E. coli UTI with hematuria, POA #Leukocytosisimproving WBC 17.9--> 14.7--> 13.8--> 13.4 Urinalysis revealing large blood, WBC 32, 1+ bacteria. Unremarkable blood culture. Continue Rocephin 1 g daily (started 02/27/2022 and antibiotic course will complete on 03/05/2022). Patient became febrile to 100.7 on 03/01/2022. Monitoring for an additional 24 hours to ensure the patient does not become febrile again. #COVID-19 pneumonia Positive coronavirus PCR (03/03/2022) Starting IV dexamethasone 8 mg daily x7 doses. Ordering ferritin, D-dimer, CRP. Infectious disease consulted; pending recs Starting droplet and airborne precautions. Continue to monitor -Initiated on remdesivir for total 5 days due to possibility of worsening symptoms and decompensation due to advanced age and multiple comorbidities on 03/04/22 #Possible acute ischemic CVAruled out #Acute metabolic encephalopathy patient on restrain Lower clinical suspicion after patient's daughter described him as being at his baseline. Higher clinical suspicion for encephalopathy secondary to UTI. Unremarkable CT head noncontrast Discontinued MRI brain due to low clinical suspicion + patient being unable to remain still for imaging. Hemoglobin A1c 7.0. Lipid panel: Triglycerides 198, cholesterol 182, LDL 130, HDL 22. Neurology consulted; appreciate recs. Physical therapy and Occupational Therapy consulted. #Acute hypoxic respiratory failure - etiology: Likely due to COVID-19 pneumonia - baseline oxygen requirements: Room air - supplemental oxygen: 2 L nasal cannula - Continue protocol: continue pulse oximetry, wean oxygen as tolerated, ordered incentive spirometry and educated patient on how to use it and its importance. - continue to monitor #Hypokalemiaresolved Potassium 3.3--> 3.2 Continue to replete. Repeat with BMP in the morning. #Hyperlipidemia #Hypertension - home medications: Amlodipine 5 mg daily, lisinopril 10 mg daily, atorvastatin 40 mg daily - current medications: Amlodipine 5 mg daily, lisinopril 10 mg daily, atorvastatin 40 mg daily - SBP goal <160 and DBP goal <90 while inpatient - continue to monitor #Non-insulin dependent type II diabetes mellitus - hemoglobin A1c: 7.0 - home regimen: None - current regimen: Moderate SSI - blood glucose goal 140-180 while inpatient - continue to monitor #Hypocalcemia Calcium 8.1 Replete. Continue to monitor. #Dementia Continue orienting patient, turning off visual stimuli at bedtime, and keeping blinds/curtains open during the day. #Obesity #Weight loss counseling #Exercise counseling - BMI 31.7 - Counseled patient on the importance of weight loss, incorporating exercise, and dietary changes (lean meats, fresh fruits and vegetables, and water intake). Patient expresses understanding. - Time: +15 min #Advanced care planning -Disease education conducted, care plan discussed, diagnoses discussed, prognosis discussed, and patient acknowledges understanding with care plan -Time: +30 min #Discharge planning - Patient is pending resolution of acute hypoxic respiratory failure and completion of remdesivir. - Case management has been made aware. Subjective Date of service: 03/07/22 Interval history: Patient seen and examined. Medical records and medication list reviewed. Patient is very agitated today Patient remains confused, Discussed plan of care at bedside with patient's RN Objective - Exam Narrative Exam: General appearance: Present: Very much agitated., well-nourished, other (Nonverbal at baseline) - EENT Eyes: Present: PERRL, EOM intact ENT: hearing intact, clear oral mucosa, dentition normal - Neck Neck: Present: supple, normal ROM - Respiratory Respiratory effort: normal Respiratory: bilateral: diminished (2 L nasal cannula) - Cardiovascular Rhythm: regular Heart Sounds: Present: S1 & S2 - Extremities Extremities: no ischemia, pulses intact, pulses symmetrical, No edema, normal temperature, normal color Peripheral Pulses: within normal limits - Abdominal General gastrointestinal: soft, non-tender, non-distended, normal bowel sounds - Integumentary Integumentary: Present: clear, warm, dry - Psychiatric Psychiatric: not cooperative - Neurologic Neurologic: focal deficits (Left-sided weakness) - Constitutional Vitals: Vital Signs - 12hr 03/07/22 03/07/22 03/07/22 05:02 08:41 09:09 Temperature 97.7 F Pulse Rate 94 H 110 H Respiratory 18 20 Rate Blood Pressure 131/69 110/76 O2 Sat by Pulse 93 92 94 Oximetry 03/07/22 03/07/22 09:27 10:46 Temperature Pulse Rate 110 H Respiratory 22 Rate Blood Pressure O2 Sat by Pulse 92 Oximetry - Labs CBC & Chem 7: 03/05/22 06:57 03/07/22 06:42 Labs: Abnormal lab results 03/06/22 03/06/22 03/06/22 Range/Units 12:38 12:38 17:59 D-Dimer 823.15 H (0-234) ng/mlDDU Potassium (3.6-5.0) mmol/L POC Glucose 138 H (70-105) mg/dL Lactate Dehydrogenase 368 H (91-180) units/L Albumin (3.9-5) g/dL 03/06/22 03/07/22 03/07/22 Range/Units 21:49 06:42 12:12 D-Dimer (0-234) ng/mlDDU Potassium 3.5 L (3.6-5.0) mmol/L POC Glucose 107 H 142 H (70-105) mg/dL Lactate Dehydrogenase (91-180) units/L Albumin 3.5 L (3.9-5) g/dL HEART Score - HEART Score Troponin: Troponin T < 0.010 ng/mL (0.00-0.029) 02/25/22 18:33
[2022-03-08] MEDS: HALOPERIDOL LACTATE 5 MG/1 ML INJ IM PRN (06:40)
[2022-03-08] MEDS: amLODIPine 5 MG TAB PO SCH (10:23)
[2022-03-08] MEDS: METOPROLOL TARTRATE 25 MG TAB PO SCH (10:23)
[2022-03-08] MEDS: CLOPIDOGREL 75 MG TAB PO SCH (10:24)
[2022-03-08] MEDS: DEXAMETHASONE 4 MG TAB PO SCH (10:24)
[2022-03-08] MEDS: FAMOTIDINE 20 MG TAB PO SCH (10:24)
[2022-03-08] MEDS: ASCORBIC ACID 500 MG TAB PO SCH (10:25)
[2022-03-08] MEDS: CHOLECALCIFEROL (VIT D3) 5,000 UNIT TAB PO SCH (10:25)
[2022-03-08] MEDS: ZINC SULFATE 220 MG CAP PO SCH (10:25)
[2022-03-08 10:26] VITALS: BP 115/79
[2022-03-08] MEDS: LISINOPRIL 10 MG TAB PO SCH (10:26)
[2022-03-08] MEDS: HEPARIN 5,000 UNIT/1 ML VIAL SUB-Q SCH (10:27)
[2022-03-08] MEDS: MORPHINE 4 MG/1 ML INJ IV PRN (11:10)
--- NOTE | 2022-03-08 11:34 | Progress Note ---
Assessment and Plan Cultures: SARS CoV2 PCR: Positive 02/26/2022 urine culture: E. coli A/P: 71-year-old male with hypertension, hyperlipidemia, dementia was brought to the hospital with change in mental status: #COVID-19: PCR positive. Chest x-ray showed faint bilateral airspace opacities. D-dimer 756. Procalcitonin on admission <0.05, CRP 6.2. CRP improved to 0.9, procalcitonin 0.1 #Acute hypoxic respiratory failure: on NC. #Sepsis, E. coli UTI: completed ceftriaxone. #Acute encephalopathy: CT head unremarkable. Does have baseline dementia. Syphilis IgG reactive, RPR nonreactive. Unlikely neurosyphilis. FTA-ABS negative as well. Recs: -complete IV/PO Dexamethasone x 10 days -complete IV remdesivir x 5 days -prophylactic anticoagulation based on d-dimer per hospital protocol -WBC high, likely related to steroids. CRP improved to 0.9, procalcitonin 0.1 Arnold Strong MD, FACP, [facility] ([facility]) O: [phone] F: [phone] C: [phone] Subjective Date of service: 03/08/22 Interval history: Afebrile. Remains on oxygen by [place]. Restless, agitated, has restraints. Poor historian. Objective - Exam Narrative Exam: Physical Exam: Constitutional: Awake, alert, restless, trying to get out of bed Head, Ears, Nose: Normocephalic, atraumatic. External ears, nose normal Eyes: Conjunctivae/corneas clear. No icterus. No ptosis. Neck: Supple, no meningeal signs Cardiovascular: S1, S2 + Respiratory: Good air entry, clear to auscultation bilaterally GI: Soft, non-tender; bowel sounds normal. No peritoneal signs Musculoskeletal: No pedal edema, no cyanosis. Skin: No rash or abscess Hem/Lymphatic: No palpable cervical or supraclavicular nodes. No lymphangitis Psych: Restless Neurological: Awake, confused, restless in bed - Constitutional Vitals: Vital Signs Temp Pulse Resp BP Pulse Ox 97.6 F 103 H 16 115/79 99 03/08/22 10:38 03/08/22 10:38 03/08/22 10:38 03/08/22 10:38 03/08/22 10:38 Temperature -Last 24 Hours Temperature 97.6 F Temperature 98.0 F Temperature 97.8 F - Labs CBC & Chem 7: 03/05/22 06:57 03/07/22 06:42 Labs: Abnormal lab results 03/07/22 03/07/22 03/07/22 Range/Units 12:12 16:38 21:25 POC Glucose 142 H 126 H 124 H (70-105) mg/dL
--- NOTE | 2022-03-08 12:26 | Discharge Summary ---
Providers - Providers Date of Admission: 02/25/22 23:06 Date of discharge: 03/08/22 Attending physician: FLORY STACK 02/25/22 23:06 Consult to Physician [CONS] Routine Comment: Consulting Provider: GEORGE COSME Physician Instructions: Reason For Exam: cva Occupational Therapy Evaluate and Treat [CONS] Routine Comment: Reason For Exam: Neuro deficits Physical Therapy Evaluation and Treat [CONS] Routine Comment: Reason For Exam: Neuro deficits 02/26/22 07:26 Speech Therapy Evaluation and Treat [CONS] Routine Reason For Exam: Stroke workup 02/28/22 08:34 Speech Therapy Evaluation and Treat [CONS] Urgent Reason For Exam: swallow evaluation 03/03/22 13:57 Consult to Physician [CONS] Routine Comment: Consulting Provider: SAL MARTINEZ Physician Instructions: Reason For Exam: COVID pneumonia + respiratory failure Primary care physician: [employer] Hospitalization Condition: Stable Hospital course: This is a 70-year-old female with half-way psych issues admitted for acute psychosis and was found with small subdural hematoma most likely related to trauma from throwing herself on the floor and hitting her head while in the ED. Hospital Course to Date: 03/03: Repeat CT head pending. Mentation improved this am, patient drowsy but calmer this am, following simple commands. Neurology and NeuroSurgery consults pending. Keep patient as 1013 status, Mental health/Psych is also following. Continue current antipsychotics meds and PRN Haldol, close Qtc monitoring. C ontinue neuro check per protocol. Patient COVID PCR positive, patient remains stable on RA and hemodynamicaly stable. Continue to monitor for now, ID also consulted for further recs. 03/04: Repeat CT head/reviewed, subdural hematoma stable. NeuroSurgery recommendations noted, will hold off AC for now. PT/OT/Speech consulted. Patient with persistent hypernatremia, D5W increased to 75ml/hr. Continue to encourage PO intake and trend BMP. Mental health recommends inpatient psych once medically clear. Patient is stable for transfer to the floor. 03/05; remains clam but still confused. psych adjusting medications and recommended acute inpt psych treatment. cont Mirtazepine 15mg po qhs to promote rest, Valproic 500mg IV q12h, Decrease seroquel 300mg qhs cont d5w @ 75ml/hr, follow BMP to trend Na. 03/06; patient is more calm and cooperative. Sodium level stable at 150s. Continue D5W, follow BMP. 03/07: Na level normal today. patient c/o dizziness, order PT eval. follow psych recommendation Assessment and Plan #Traumatic Closed Head Injury #Small Subdural Hematoma #Acute Psychosis - Presented in acute psychosis, agitated and combative. Threw herself on the floor and hit her head - Imagings reviewed, Mildly comminuted fracture of the anterior and posterior valentine of the left maxillary sinus and small subdural hematoma noted - Case discussed with NeuroSurgery- Dr. Garica on admit, no intervention recommended at this time. - Continue to monitor for 24 to 48hrs, repeat CT head, and neuro checks - NeuroSurgery consulted, appreciate recommendations - Repeat CT head/brain reviewed, subdural hematoma stable. - Continue to hold off on AC for now - Patient remains as 1013 status, sitter at the bedside - Continue current antipsychotics meds - Close Qtc monitoring- 12 lead EKG pending - Neuro checks per protocol - Home meds resumed - Mental Health/Psych also on consult, appreciate recommendations - Mental health recommends inpatient psych once medically clear #COVID-19 Infection - COVID PCR came back positive - Patient received both dose of Mace vaccine, but no booster - CXR with Bilateral opacities - Patient remains stable on RA, afebrile, with no WBCs - Will continue to monitor for now - ID consulted, no indications for treatment at this time - Per ID If patient develops hypoxia, initiate Remdesivir and steroids #MIKE (Acute Kidney Injury) most likely Vasomotor Nephropathy #Acute Hypernatremia - Probably due to dehydration - Baseline renal function is unknown - renal function improved post IVF hydration - With persistent hypernatremia, continue gentle hydration D5W increased to 75ml/hr - cont to Encourage PO intake - Strict intake and output - Avoid nephrotoxic medications; Renally dose medications - Monitor and replace electrolytes as needed #Rhabdomyolysis - Presented with mildly elevated CPK - CPK improved - Continue IV fluid hydration - check creatinine kinase #Hypothyroidism - Continue supportive care - TSH was normal - Resumed Synthroid #GI/DVT Prophylaxis - PPI- pepcid - SCDs to bilateral lower extremities while in bed #Advance Care Planning - Disease education data, care plan, diagnoses, and prognosis were discussed with patient's son via phone. Patient is a FULL code. Patient's son acknowledged understanding and agreed with current care plan. Disposition: 06 HOME HEALTH CARE SERVICE Time spent for discharge: 34 minutes Core Measure Documentation - Palliative Care Palliative Care/ Comfort Measures: Not Applicable - Core Measures Any of the following diagnoses?: history only Exam - Physical Exam Narrative exam: General appearance: Present: Very much agitated., well-nourished, other (Nonverbal at baseline) - EENT Eyes: Present: PERRL, EOM intact ENT: hearing intact, clear oral mucosa, dentition normal - Neck Neck: Present: supple, normal ROM - Respiratory Respiratory effort: normal Respiratory: bilateral: diminished (2 L nasal cannula) - Cardiovascular Rhythm: regular Heart Sounds: Present: S1 & S2 - Extremities Extremities: no ischemia, pulses intact, pulses symmetrical, No edema, normal temperature, normal color Peripheral Pulses: within normal limits - Abdominal General gastrointestinal: soft, non-tender, non-distended, normal bowel sounds - Integumentary Integumentary: Present: clear, warm, dry - Psychiatric Psychiatric: not cooperative - Neurologic Neurologic: focal deficits (Left-sided weakness) - Constitutional Vitals: Temp Pulse Resp BP Pulse Ox 97.6 F 103 H 16 115/79 99 03/08/22 10:38 03/08/22 10:38 03/08/22 10:38 03/08/22 10:38 03/08/22 10:38 Plan Activity: fall precautions Diet: other (mechanical soft diet) Care Plan Goals: Patient is medically cleared for discharge. 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 On arrival, the patient was found to be hemodynamically stable. There was concern for acute ischemic CVA, and the patient underwent CT head noncontrast that was found to be unremarkable. On presentation, the tele- neurology was consulted, and they deemed that the patient was outside of the window to receive tPA. The patient was admitted for management of presumed acute ischemic CVA. Patient had labs are remarkable for potassium 3.3, creatinine 1.4, and urinalysis revealing WBCs 33 with 1+ bacteria. Patient was unable to obtain MRI brain due to agitation despite sedation. Given further physical examination, it was deemed that there was low clinical suspicion of the patient had an acute ischemic CVA but was instead having acute metabolic encephalopathy in the setting of sepsis secondary to UTI. Patient was treated with IV antibiotics until he remained afebrile for at least 24 hours. Patient will be discharged with Levaquin 500 mg daily to complete a total antibiotic course of 7 days. Patient's family has been educated, and they expressed understanding. Patient is medically clear for discharge. Follow up with: PRIMARY CARE, [Primary Care Provider] - 3-5 Days Prescriptions: AtorvaSTATin [Lipitor] 40 mg PO QHS #30 tablet amLODIPine 5 mg PO DAILY #30 tab levoFLOXacin [Levaquin TAB] 500 mg PO QDAY #3 tablet Metoprolol [Lopressor TAB] 25 mg PO BID #60 tab Clopidogrel [Plavix] 75 mg PO QDAY #30 tablet lisinopriL [Zestril TAB] 10 mg PO QDAY #30 tab
[2022-03-08] MEDS: SODIUM CHLORIDE 0.9% 50 ML IVPB IV SCH (18:46)
[2022-03-08] MEDS: REMDESIVIR 100 MG in SODIUM CHLORIDE 0.9% 250ML 250 ML IV SCH (18:47)
== END 2022-03-08 13:25 | disposition home health service (06) | DRG 871 ==
LOC: ED 17:55 → 4A 23:06 → 3A 03-03 23:23
PROVIDERS: ADMIT Hospitalist; ATTEND Internal Medicine
PROC: XW033E5 Introduction of Remdesivir Anti-infective into Peripheral Vein, Percutaneous Approach, New Technology Group 5 (ICD-10-PCS; principal; 2022-03-04)
DX: A41.51 Sepsis due to Escherichia coli [E. coli] (principal); G93.41 Metabolic encephalopathy; S06.5X0A Traumatic subdural hemorrhage without loss of consciousness, initial encounter; U07.1 COVID-19; J12.82 Pneumonia due to coronavirus disease 2019; J96.01 Acute respiratory failure with hypoxia; N17.0 Acute kidney failure with tubular necrosis; S02.40DA Maxillary fracture, left side, initial encounter for closed fracture; N30.01 Acute cystitis with hematuria; R47.01 Aphasia; E87.0 Hyperosmolality and hypernatremia; F23 Brief psychotic disorder; M62.82 Rhabdomyolysis; E83.51 Hypocalcemia; E11.9 Type 2 diabetes mellitus without complications; I10 Essential (primary) hypertension; E78.5 Hyperlipidemia, unspecified; E87.6 Hypokalemia; E66.9 Obesity, unspecified; E86.0 Dehydration; Z71.3 Dietary counseling and surveillance; Z68.28 Body mass index [BMI] 28.0-28.9, adult; E03.9 Hypothyroidism, unspecified; X58.XXXA Exposure to other specified factors, initial encounter; Y93.89 Activity, other specified; Y92.89 Other specified places as the place of occurrence of the external cause; Y99.8 Other external cause status; Z79.899 Other long term (current) drug therapy; Z82.49 Family history of ischemic heart disease and other diseases of the circulatory system
CPT/HCPCS: 36415; 70450; 70496; 70498; 71045; 80048; 80053; 80061; 80307; 80320; 81001; 82306; 82607; 82728; 82747; 82947; 82962; 83036; 83615; 84134; 84145; 84425; 84443; 84484; 85007; 85025; 85379; 85610; 85730; 86140; 86592; 86593; 86780; 87076; 87086; 87186; 93005; 93306; 94640; 94760; 95819; G0378; J3490; C8929; G0480; J0696; J1100; J1630; J1644; J2060; J2270; J3480; J7030; J7050; J8540; Q9967; U0003